=== PATIENT | female | born 1935 | race African-American/Black ===

== ENCOUNTER 2019-05-26 19:03 | Inpatient (IN) | payer SELFPAY ==
[~2019-05-26] VITALS: Ht 160 cm; Wt 89.0 kg
[2019-05-26 20:06] LABS: Basophils # (auto) 0 uL; Basophils % (auto) 0.8 % (0.0-2.0); Eosinophils # (auto) 0.2 uL; Hematocrit 37.7 % (36.0-46.0); Hemoglobin 12.4 g/dL (12.2-16.2); Lymphocytes # (auto) 2.7 uL; Lymphocytes % (auto) 46.6 % (10.0-50.0); Mean Corpuscular Hemoglobin 31.6 pg (28.0-32.0); Mean Corpuscular Hgb Conc. 32.9 g/dL (32.0-36.0); Mean Corpuscular Volume 96.1 fL (80.0-100.0); Monocytes # (auto) 0.6 uL; Monocytes % (auto) 10.3 % (0.0-12.0); Neutrophils # (auto) 2.2 uL; Neutrophils % (auto) 39.3 % (37.0-80.0); Nucleated Red Blood Cells % 0.1 %; Platelet Count (auto) 213 10^3/uL (140-450); Red Blood Cells 3.93 10^6/uL (4.0-5.20); Red Cell Distribution Width 12.7 % (11.8-14.3); White Blood Cell 5.7 10^3/uL (4.4-10.8)
[2019-05-26 20:11] LABS: Urine Bacteria NONE SEEN /hpf (None Seen); Urine Blood Negative /uL (Negative); Urine Specific Gravity 1.005 (1.001-1.035); Urine WBC <1 /hpf (0 - 5)
[2019-05-26 20:27] LABS: Albumin 3.5 g/dL (3.4-5.0); BUN/Creatinine Ratio 19.3; Calcium 8.2 mg/dL (8.5-10.1); Potassium 3.7 mmol/L (3.5-5.1)
[2019-05-26 20:31] LABS: Bilirubin, Total 0.4 mg/dL (0.2-1.0); Total Protein 7.6 g/dL (6.4-8.2)
[2019-05-26] MEDS ORDERED: FUROSEMIDE 20 MG/2 ML VIAL IV ONE (21:30)
[2019-05-26] MEDS ORDERED: ASPirin 81 mg TAB PO ONE (22:15)
[2019-05-26] MEDS ORDERED: MORPHINE SULF INJ 2 MG/ML SYRINGE 1ML IV PRN (22:45)
[2019-05-26] MEDS ORDERED: cloNIDine HCL 0.1 MG TAB PO PRN (22:45)
[2019-05-26] MEDS ORDERED: NITROGLYCERIN 0.4 MG SL TAB SL PRN (22:45)
[2019-05-26] MEDS ORDERED: ONDANSETRON HCL 4 MG/2 ML VIAL IV PRN (22:45)
[2019-05-26] MEDS ORDERED: ACETAMINOPHEN 325 MG TAB PO PRN (22:45)
[2019-05-26] MEDS ORDERED: TEMAZEPAM 15 MG CAP PO PRN (22:45)
[2019-05-26] MEDS ORDERED: ATORVASTATIN 20 MG TAB PO ONE (22:45)
[2019-05-26 23:50] LABS: Cholesterol 162 mg/dL (< 200)
[2019-05-26 23:52] LABS: HDL Cholesterol 35 mg/dL (40-59); LDL Cholesterol 108 mg/dL (< 100); Triglycerides 113 mg/dL (< 150)
--- NOTE | 2019-05-27 01:00 | NUR ---
Telemetry admit from ER CRYSTAL MUNGUIA admitted to Telemetry unit after SBAR received. Patient oriented to Minerva giraldo RN, unit, room, bed, and unit policies regarding patient care and visiting hours. Patient now on continuous telemetry monitoring, tele box # 12 and telemetry reading on arrival to unit is AFIB 59. Patient placed on bedside oxygen, weighed by bed scale and encouraged to call if they need something. All questions and concerns addressed, patient verbalized understanding. Note: Came per wheelchair awake alert oriented x 4, not in respiratory distress, placed in the bed comfortably,vital signs checked.
[2019-05-27 01:10] VITALS: BP 162/93
[2019-05-27] MEDS: HYDROcodone-ACET 5/325MG TAB PO PRN ×2 (01:41→09:55)
[2019-05-27] MEDS ORDERED: LOSA-69 PO (01:52)
[2019-05-27] MEDS ORDERED: FURO1TAB31 PO (01:52)
[2019-05-27] MEDS ORDERED: MELO1TAB73 PO (01:52)
[2019-05-27 05:44] VITALS: BP 148/69
--- NOTE | 2019-05-27 06:16 | NUR ---
Called/paged Leeanne Ontiveros called re:at 0300 patient heart rate of 40s,spike of 38,to 50s . Did EKG, patient is asymptomatic ,vital signsof 154/77,44,awaiting reply.
[2019-05-27] MEDS ORDERED: PNEUMOCOCCAL VACC POLYS 25 MCG/0.5 ML VIAL IM ONE (06:30)
--- NOTE | 2019-05-27 06:36 | NUR ---
Teresa Wood replied and relayed that at 0300, patient has spike of heart rate of 38.39. 40s, to 50s,asymptomatic, vital signs checked bp 154/77, hr.of 44, 95% o2 sat. and said patient has a cardiology consult ordered, no new order.
--- NOTE | 2019-05-27 06:40 | NUR ---
Relayed to Abhay Wood the EKG result of Atrial Fibrillation with slow ventricular response with premature ventricular or aberrantly conducted complexes.
--- NOTE | 2019-05-27 07:30 | NUR ---
Opening Shift Note Assumed care of patient, awake and alert. No S/S of distress/SOB or pain. Instructed on POC and to call for assist PRN, will continue to monitor for changes Q1hr and PRN.
--- NOTE | 2019-05-27 07:48 | NUR ---
Report given to Destiny Huang, patient is resting no distress.
[2019-05-27 07:56] LABS: Basophils # (auto) 0 uL; Basophils % (auto) 0.5 % (0.0-2.0); Eosinophils # (auto) 0.2 uL; Eosinophils % (auto) 3.6 % (0.0-7.0); Hematocrit 35.3 % (36.0-46.0); Lymphocytes % (auto) 43.3 % (10.0-50.0); Mean Corpuscular Hemoglobin 32.8 pg (28.0-32.0); Mean Corpuscular Hgb Conc. 34.1 g/dL (32.0-36.0); Mean Corpuscular Volume 96.1 fL (80.0-100.0); Monocytes # (auto) 0.5 uL; Monocytes % (auto) 10.9 % (0.0-12.0); Neutrophils # (auto) 1.9 uL; Neutrophils % (auto) 41.7 % (37.0-80.0); Nucleated Red Blood Cells % 0.2 %; Platelet Count (auto) 190 10^3/uL (140-450); Red Blood Cells 3.68 10^6/uL (4.0-5.20); Red Cell Distribution Width 12.8 % (11.8-14.3); White Blood Cell 4.5 10^3/uL (4.4-10.8)
[2019-05-27 08:16] LABS: BUN/Creatinine Ratio 18.9
[2019-05-27 09:00] VITALS: BP 149/66
[2019-05-27] MEDS: ENOXAPARIN SOD 40 MG/0.4 ML SYRINGE SC SCH (09:51)
[2019-05-27] MEDS: FAMOTIDINE 20 MG TAB PO SCH ×2 (09:52→21:07)
[2019-05-27] MEDS: ASPirin 81 mg TAB PO SCH (09:53)
[2019-05-27] MEDS: LOSARTAN POTASSIUM 25 MG TAB PO SCH (09:53)
[2019-05-27] MEDS ORDERED: FUROSEMIDE 40 MG TAB PO SCH (10:00)
--- NOTE | 2019-05-27 12:41 | NUR ---
md zuniga at bedside rounded on pt and daughter jacob, updated on plan of care awaiting john
[2019-05-27 13:00] VITALS: BP 142/77
--- NOTE | 2019-05-27 14:05 | NUR ---
called stress test to see if test will be done today, and if another iv needs to be inserted per stress lab the stress test part will be done tomorrow morning ad the relax portion will be done today
[2019-05-27 17:00] VITALS: BP 146/87
[2019-05-27] MEDS: FUROSEMIDE 40 MG/4 ML VIAL IV SCH (17:12)
--- NOTE | 2019-05-27 19:15 | NUR ---
ASSUMED CARE, PT. AWAKE, ASSISTED PT. TO BR THEN BACK TO BED, RELATIVE AT BEDSIDE, NO C/O PAIN, NO SOB.
[2019-05-27] MEDS: POTASSIUM CHL 20 Meq TABLET PO SCH (21:07)
[2019-05-27 21:55] VITALS: BP 154/67
[2019-05-27] MEDS: ATORVASTATIN 20 MG TAB PO SCH (22:34)
[2019-05-28 04:45] VITALS: BP 137/83
[2019-05-28] MEDS: FUROSEMIDE 40 MG/4 ML VIAL IV SCH ×2 (05:31→18:15)
[2019-05-28] MEDS ORDERED: PNEUMOCOCCAL VACC POLYS 25 MCG/0.5 ML VIAL IM ONE (07:45)
--- NOTE | 2019-05-28 07:45 | NUR ---
Opening Note Assumed care of patient, she is alert and awake, patient speaks Swahili. She is in no apparent s/s of distress at this time. Will ask charge nurse for drupal developer phone, and call daughter to assist with communication. Patient states "pain" and touches her upper arms. Bed is in low, locked position, call light within reach, demonstrated how to use it if she needs assistance. Will continue to monitor Q1h and PRN.
[2019-05-28] MEDS ORDERED: ADENOSINE 75 MG in GIVE UN-DILUTED 0 ML IV STA (08:21)
[2019-05-28 08:54] LABS: Potassium 3.7 mmol/L (3.5-5.1)
[2019-05-28 09:00] VITALS: BP 150/65
--- NOTE | 2019-05-28 10:00 | NUR ---
Daughter at bedside able to help with translation.
[2019-05-28] MEDS: FAMOTIDINE 20 MG TAB PO SCH ×2 (10:49→21:07)
[2019-05-28] MEDS: ASPirin 81 mg TAB PO SCH (10:49)
[2019-05-28] MEDS: LOSARTAN POTASSIUM 25 MG TAB PO SCH (10:50)
[2019-05-28] MEDS: LACTULOSE 20Gm/30ML SOLN PO SCH ×2 (10:51→21:06)
[2019-05-28] MEDS: POTASSIUM CHL 20 Meq TABLET PO SCH ×2 (10:51→21:07)
[2019-05-28] MEDS: ENOXAPARIN SOD 40 MG/0.4 ML SYRINGE SC SCH (10:51)
[2019-05-28 13:00] VITALS: BP 152/67
--- NOTE | 2019-05-28 14:45 | NUR ---
Called Dr. Arias Notified Dr. Arias of erythema and tenderness to the right upper arm. Orders received and read back, and verified. Will medicate per orders. Addendum: 05/28/19 at 2017 by HOWARD ONTIVEROS RN RN Time was at 1646 for this intervention
[2019-05-28] MEDS ORDERED: IOHEXOL 350 MG/ML 100ML IJ ONE (16:58)
[2019-05-28 17:00] VITALS: BP 133/63
--- NOTE | 2019-05-28 17:07 | NUR ---
Patient to CT scan.
--- NOTE | 2019-05-28 17:10 | NUR ---
assessment Patient is a 83 year old Swahili speaking female. Per patients daughter Shanice patient lived home with her prior to admission and functioned with her assistance. Patient has a fww for home use. Patient has no insurance. Patient has been assessed by Everett Leyva of [facility]. Patients [facility] application is secure. I have provided patient with resources for [facility], Dr. Reddy, and [facility] urgent care for follow up visits. I have provided patient with a prescription card from community assistance program. Per Shanice patient will return home with her on discharge. Shanice verbalized understanding and agreed to discharge plan home. Addendum: 05/28/19 at 1713 by Vale CONKLIN Amended: Links added.
[2019-05-28] MEDS: HYDROcodone-ACET 5/325MG TAB PO PRN (18:15)
[2019-05-28] MEDS: CLINDAMYCIN 600MG IV 50 ML IV SCH (19:05)
--- NOTE | 2019-05-28 19:15 | NUR ---
assumed care, pt. awake, no c/o pain, not in distress.
[2019-05-28] MEDS: ATORVASTATIN 20 MG TAB PO SCH (21:07)
[2019-05-28 22:16] VITALS: BP 137/68
[2019-05-29] MEDS: CLINDAMYCIN 600MG IV 50 ML IV SCH ×2 (02:13→09:29)
[2019-05-29 05:33] VITALS: BP 123/56
[2019-05-29] MEDS: FUROSEMIDE 40 MG/4 ML VIAL IV SCH (05:36)
--- NOTE | 2019-05-29 07:30 | NUR ---
OPENING SHIFT NOTE RECEIVED REPORT FROM [facility] NURSE, ASSUMED CARE OF PATIENT. PATIENT IS A&OX4 WITH NO C/O PAIN. PATIENTS BED IS IN LOW POSITION, BRAKES APPLIED, BED RAILS UPX2 AND CALL LIGHT WITHIN REACH. EDUCATED PATIENT ON POC AND CALL LIGHT USE PRN, PATIENT VERBALIZED UNDERSTANDING. NO CURRENT S/S OF DISTRESS NOTED, CONTINUING TO MONITOR PATIENT Q1 HR AND PRN
[2019-05-29 07:40] LABS: BUN/Creatinine Ratio 19.2; Potassium 3.7 mmol/L (3.5-5.1)
[2019-05-29 09:00] VITALS: BP 117/55
[2019-05-29] MEDS: LACTULOSE 20Gm/30ML SOLN PO SCH (09:28)
[2019-05-29] MEDS: FAMOTIDINE 20 MG TAB PO SCH (09:28)
[2019-05-29] MEDS: POTASSIUM CHL 20 Meq TABLET PO SCH (09:28)
[2019-05-29] MEDS: ASPirin 81 mg TAB PO SCH (09:28)
[2019-05-29] MEDS: ENOXAPARIN SOD 40 MG/0.4 ML SYRINGE SC SCH (09:29)
[2019-05-29] MEDS: LOSARTAN POTASSIUM 25 MG TAB PO SCH (09:30)
--- NOTE | 2019-05-29 10:35 | NUR ---
AT BEDSIDE DR FLORES AT PT BEDSIDE
[2019-05-29] MEDS ORDERED: APIXABAN 5 MG TAB PO ONE (11:15)
[2019-05-29] MEDS ORDERED: APIX5TAB OR (11:34)
[2019-05-29] MEDS ORDERED: FURO20TA3 PO (11:34)
[2019-05-29] MEDS ORDERED: CEPH-37 PO (11:34)
[2019-05-29] MEDS ORDERED: LOS25T PO (11:34)
[2019-05-29] MEDS ORDERED: POTA-220 PO (11:34)
--- NOTE | 2019-05-29 11:43 | NUR ---
INTERPRETATION USED TELE GROUT SEWER LINE REPAIRER # [id number] USED FOR [place], EDUCATED PATIENT ON COST OF F/U APPT AND ON ASSISTANCE AVAILABLE, PATIENT VERBALZIED UNDERSTANDING.
[2019-05-29 12:45] VITALS: BP 123/56
[2019-05-29 13:00] VITALS: BP 117/55
--- NOTE | 2019-05-29 13:04 | NUR ---
PER PHARMACY PATIENT ALREADY RECEIVED PNEUMONIA VAC
--- NOTE | 2019-05-29 14:00 | NUR ---
IV removal IV DC'd with clean sterile technique, catheter fully intact. Pressure dressing applied to site. Patient tolerated well.
--- NOTE | 2019-05-29 14:15 | NUR ---
TELE BOX REMOVED SENT TO IN ROOM
--- NOTE | 2019-05-29 14:35 | NUR ---
PHARMACY PATIENT ESCORTED VIA WHEELCHAIR TO [facility], PATIENT EDUCATED ON F/U CARE AND PATIENT CONDITION. HAS ALL BELONGINGS WITH HER
--- NOTE | 2019-05-29 14:40 | NUR ---
PATIENT DISCHARGE PATIENT LEFT VIA WHEELCHAIR TO PERSONAL VEHICLE WITH NO C/O DISTRESS OR PAIN.
--- NOTE | 2019-05-29 15:48 | NUR ---
Late note Spoke with pt Clayton Skaggs. The pt appeared to not understand clinical social work aide. community worker realized that the pt was from [facility] and did not speak Hungarian. The pt's daughter was not in the room at the time. community worker left and came back. At that time Everett was speakiing with the daughter and she informed him that at one time the pt had medi-nile and let it lapse. Everett was collecting paperwork from the daughter. When Mr Garcia came out of the room he stated the pt did qualify for medi-nile He stated that he collected most of the information and the Medi-nile was secure.
--- NOTE | 2019-05-29 17:39 | NUR ---
re-assessment Per Dorita Hutton patients [facility] is secure. Addendum: 05/29/19 at 1740 by Vale CONKLIN Amended: Links added.
== END 2019-05-29 14:40 | disposition home or self-care (01) | DRG 292 ==
LOC: ER 19:05 → TELE 19:06 → TELE-EAST 23:23
PROVIDERS: ADMIT Nurse Practitioner; ATTEND Internal Medicine
DX: I11.0 Hypertensive heart disease with heart failure (principal); L03.113 Cellulitis of right upper limb; E11.65 Type 2 diabetes mellitus with hyperglycemia; I50.43 Acute on chronic combined systolic (congestive) and diastolic (congestive) heart failure; E66.9 Obesity, unspecified; I48.91 Unspecified atrial fibrillation; E78.5 Hyperlipidemia, unspecified; K59.00 Constipation, unspecified; M19.90 Unspecified osteoarthritis, unspecified site; Z90.49 Acquired absence of other specified parts of digestive tract; Z68.34 Body mass index [BMI] 34.0-34.9, adult; Z23 Encounter for immunization
CPT/HCPCS: 36415; 71045; 71046; 71275; 78452; 80048; 80053; 80061; 81001; 83036; 83735; 83880; 84443; 84484; 85025; 85379; 93005; 93017; 93306; 93970; 93971; G0378; J0153; J3490

== ENCOUNTER 2019-07-20 08:12 | Inpatient (IN) | payer MEDICAID ==
[~2019-07-20] VITALS: Ht 157.5 cm; Wt 86.4 kg
[~2019-07-20 08:12] MED LIST: APIX5TAB OR; CEPH-37 PO; FURO20TA3 PO; LOS25T PO; POTA-220 PO
[2019-07-20 08:53] LABS: Hematocrit 38.1 % (36.0-46.0); Hemoglobin 12.6 g/dL (12.2-16.2); Mean Corpuscular Hemoglobin 31.1 pg (28.0-32.0); Mean Corpuscular Volume 94.5 fL (80.0-100.0); Platelet Count (auto) 174 10^3/uL (140-450); Red Blood Cells 4.04 10^6/uL (4.0-5.20); Red Cell Distribution Width 12.6 % (11.8-14.3); White Blood Cell 3.7 10^3/uL (4.4-10.8)
[2019-07-20 08:58] LABS: Band Neutrophils % (manual) 0; Basophils % (manual) 0 (0.0-2.0); Blast Cells 0; Metamyelocytes % 0; Myelocytes % 0; Promyelocytes % 0; Reactive Lymphocytes 0
[2019-07-20 08:59] LABS: Albumin 3.5 g/dL (3.4-5.0); BUN/Creatinine Ratio 15.6
[2019-07-20 09:04] LABS: Bilirubin, Total 0.7 mg/dL (0.2-1.0); Total Protein 7.4 g/dL (6.4-8.2)
[2019-07-20 09:21] LABS: Eosinophils % (manual) 1 (0-7); Lymphocytes % (manual) 40 (10.0-50.0); Monocytes % (manual) 16 (0-12)
[2019-07-20] MEDS ORDERED: ASPirin 81 mg TAB PO ONE (10:00)
[2019-07-20] MEDS ORDERED: ENOXAPARIN SOD 100 MG/1 ML SYRINGE SC ONE (10:00)
[2019-07-20] MEDS ORDERED: MORPHINE SULF INJ 2 MG/ML SYRINGE 1ML IV PRN ×2 (11:00)
[2019-07-20] MEDS ORDERED: hydrALAZINE HCL 20 MG/ML VL IV PRN (11:00)
[2019-07-20] MEDS ORDERED: NITROGLYCERIN 0.4 MG SL TAB SL PRN (11:00)
[2019-07-20] MEDS ORDERED: ONDANSETRON HCL 4 MG/2 ML VIAL IV PRN (11:00)
[2019-07-20] MEDS ORDERED: FUROSEMIDE 20 MG/2 ML VIAL IV ONE (11:00)
[2019-07-20 11:16] LABS: Urine WBC None Seen /hpf (0 - 5)
[2019-07-20 11:26] LABS: Urine Bacteria NONE SEEN /hpf (None Seen); Urine Blood Negative /uL (Negative); Urine Specific Gravity 1.009 (1.001-1.035)
[2019-07-20 11:43] LABS: INR 1.01 (0.9-1.15); Partial Thromboplastin Time 29.2 sec (23.64-32.05)
--- NOTE | 2019-07-20 12:31 | NUR ---
PATIENT ARRIVED ON UNIT VIA WHEELCHAIR. ORIENTED TO TELE UNIT, ROOM 0291 BED A. EDUCATED ON VISITING HOURS, GIVEN TO FAMILY. PATIENT NON-OCCITAN SPEAKING DAUGHTER, CONNOR, TO TRANSLATE ALL INFORMATION DURING ADMISSION PROCESS. TELE BOX # 57 CONNECTED, RUNNING A-FIB. RESPIRATIONS EVEN AND UNLABORED. CLEAR BREATH SOUNDS. PATIENT ABLE TO AMBULATE TO BATHROOM. EDUCATED ON ROOM PHONE NUMBER AND EXTENSION TO REACH PATIENT. PATIENT VS TAKEN. BED IN LOWEST LOCKED POSITION. WILL CONTINUE TO MONITOR.
[2019-07-20 13:00] VITALS: BP 167/100
[2019-07-20 13:28] VITALS: BP 151/92
[2019-07-20 17:00] VITALS: BP 114/65
[2019-07-20] MEDS: HYDROcodone-ACET 5/325MG TAB PO PRN (18:04)
--- NOTE | 2019-07-20 18:22 | NUR ---
PATIENT REPORTING ACHES AND PAIN ALONG POSTERIOR BACK AND LEFT ARM. WILL MEDICATE ORDERED. PATIENT ALSO STATES SHE HAS A SORE THROAT WITH YELLOW PHLEGM. THIS RN DID NOT SEEE SAMPLE, ONLY REPORTED BY DAUGHTER CONNOR. PATIENT PREFERS WEARING NASAL CANNULA AT THIS TIME, O2 SAT 96% ON ROOM AIR, 99% ON 2L NC. WILL ENDORSE CARE TO NOC RN.
--- NOTE | 2019-07-20 19:27 | NUR ---
CARE ENDORSED TO NASEEM HERNANDEZ
[2019-07-20] MEDS: ATORVASTATIN 20 MG TAB PO SCH (21:06)
[2019-07-20 22:00] VITALS: BP 132/68
[2019-07-21 05:00] VITALS: BP 128/69
[2019-07-21 07:05] LABS: Basophils # (auto) 0 uL; Basophils % (auto) 0.2 % (0.0-2.0); Eosinophils # (auto) 0.1 uL; Eosinophils % (auto) 0.9 % (0.0-7.0); Hematocrit 38.8 % (36.0-46.0); Hemoglobin 12.9 g/dL (12.2-16.2); Lymphocytes # (auto) 1.2 uL; Lymphocytes % (auto) 18.4 % (10.0-50.0); Mean Corpuscular Hemoglobin 31.1 pg (28.0-32.0); Mean Corpuscular Hgb Conc. 33.3 g/dL (32.0-36.0); Mean Corpuscular Volume 93.5 fL (80.0-100.0); Monocytes # (auto) 0.7 uL; Monocytes % (auto) 9.7 % (0.0-12.0); Neutrophils # (auto) 4.8 uL; Neutrophils % (auto) 70.8 % (37.0-80.0); Nucleated Red Blood Cells % 0.2 %; Platelet Count (auto) 169 10^3/uL (140-450); Red Blood Cells 4.15 10^6/uL (4.0-5.20); Red Cell Distribution Width 12.9 % (11.8-14.3); White Blood Cell 6.8 10^3/uL (4.4-10.8)
[2019-07-21 07:15] LABS: INR 1.01 (0.9-1.15); Partial Thromboplastin Time 28.2 sec (23.64-32.05)
[2019-07-21 07:16] LABS: Potassium 3.4 mmol/L (3.5-5.1)
[2019-07-21 07:19] LABS: BUN/Creatinine Ratio 19.2
--- NOTE | 2019-07-21 07:45 | NUR ---
Opening Note Received report from manufacturing supervisor 2nd shift RN. Patient is awake, alert and oriented. No signs or symptoms of distress noted at this time. Patient is on 2L NC, respirations even and unlabored. Reviewed plan of care. Bed in low and locked position, call light within reach. Will continue to monitor Q1 hour and PRN.
[2019-07-21] MEDS ORDERED: ADENOSINE 72 MG in GIVE UN-DILUTED 0 ML IV STA (08:19)
[2019-07-21 08:51] VITALS: BP 129/70
[2019-07-21] MEDS ORDERED: POTASSIUM CHL 20 Meq TABLET PO ONE (09:30)
--- NOTE | 2019-07-21 10:05 | NUR ---
senior quality control technician at bedside
[2019-07-21] MEDS: FAMOTIDINE 20 MG TAB PO SCH (10:37)
[2019-07-21] MEDS: ASPirin-EC 81 mg tab PO SCH (10:37)
[2019-07-21] MEDS: LISINOPRIL 10 MG TAB PO SCH (10:37)
--- NOTE | 2019-07-21 10:55 | NUR ---
GRAY Treadwell at bedside Patient scheduled to have left heart cath tomorrow. Procedure for left heart cath explained to daughter Shanice and patient.
--- NOTE | 2019-07-21 11:15 | NUR ---
Consents signed and placed in chart Daughter Shanice at bedside, consents for left heart cath signed and placed in chart. Will continue to monitor
[2019-07-21 13:00] VITALS: BP 132/73
--- NOTE | 2019-07-21 13:45 | NUR ---
Dr. Adan at bedside
[2019-07-21] MEDS: HYDROcodone-ACET 5/325MG TAB PO PRN ×2 (17:24→21:44)
--- NOTE | 2019-07-21 17:24 | NUR ---
Pain Per patient daughter, patient has a sore throat and headache from coughing, and would like pain medications. Will medicate with PRN medication as ordered. Will continue to monitor Q1 hour and PRN.
--- NOTE | 2019-07-21 19:15 | NUR ---
Closing Note Report given to shift production supervisor RN. No signs or symptoms of distress noted at this time.
[2019-07-21 20:00] VITALS: BP 129/70
[2019-07-21] MEDS: ATORVASTATIN 20 MG TAB PO SCH (21:44)
[2019-07-21 22:00] VITALS: BP 115/61
[2019-07-22] VITALS (7 sets, daily range): BP systolic 115–142; BP diastolic 52–82
--- NOTE | 2019-07-22 05:22 | NUR ---
LEFT A MESSAGE ON CONNOR-DAUGHTER ABOUT THE PT'S SCHEDULED PROCEDURE.
--- NOTE | 2019-07-22 07:20 | NUR ---
Opening Shift Note Assumed care of patient, awake and alert. No S/S of distress/SOB or pain. Instructed on POC and to call for assist PRN, will continue to monitor for changes Q1hr and PRN. Bed locked in lowest position with two side rails up and call light in reach.
[2019-07-22 07:38] LABS: Basophils # (auto) 0 uL; Basophils % (auto) 0.3 % (0.0-2.0); Eosinophils # (auto) 0 uL; Eosinophils % (auto) 0.6 % (0.0-7.0); Hemoglobin 12.8 g/dL (12.2-16.2); Lymphocytes # (auto) 0.9 uL; Lymphocytes % (auto) 13.2 % (10.0-50.0); Mean Corpuscular Hemoglobin 31.7 pg (28.0-32.0); Mean Corpuscular Hgb Conc. 33.7 g/dL (32.0-36.0); Monocytes # (auto) 0.7 uL; Monocytes % (auto) 10.3 % (0.0-12.0); Neutrophils # (auto) 5.2 uL; Neutrophils % (auto) 75.6 % (37.0-80.0); Platelet Count (auto) 151 10^3/uL (140-450); Red Blood Cells 4.05 10^6/uL (4.0-5.20); Red Cell Distribution Width 12.6 % (11.8-14.3); White Blood Cell 6.8 10^3/uL (4.4-10.8)
[2019-07-22 07:53] LABS: INR 1.01 (0.9-1.15); Partial Thromboplastin Time 25.9 sec (23.64-32.05)
[2019-07-22 07:55] LABS: BUN/Creatinine Ratio 21.6; Potassium 3.5 mmol/L (3.5-5.1)
[2019-07-22] MEDS: LISINOPRIL 10 MG TAB PO SCH (09:38)
[2019-07-22] MEDS: FAMOTIDINE 20 MG TAB PO SCH (09:50)
[2019-07-22] MEDS: ASPirin-EC 81 mg tab PO SCH ×2 (09:50→10:22)
--- NOTE | 2019-07-22 10:03 | NUR ---
PATIENT AND DAUGHTER STATE THAT PATIENT HAS BEEN EXPERIENCING SORE THROAT AND BODY ACHES WITH GREENISH PHLEGM. PER THE PATIENT IT HAS NOT BEEN ADDRESSED. TEMP THIS MORNING WAS 100.2 HR 80, RR 20 SpO2 98 RA, AND BP 142/82 PATIENTS LYMPH NODES FEEL SWOLLEN BILATERALLY. I ASSESSED THROAT WITH PEN LIGHT. UNABLE TO VISUALIZE WHOLE THROAT PATIENTS TONGUE IS IN THE WAY. I PAGED HOSPITALIST DEISI TO NOTIFY, I ALSO CALLED PLASTIC PRINTER JOVANNI HERNANDEZ TO NOTIFY OF SYMPTOMS DUE TO PATIENT BEING SCHEDULED FOR [facility]. I AM CURRENTLY AWAITING HOSPITALIST CALL BACK.
--- NOTE | 2019-07-22 10:15 | NUR ---
DR FATIMA ROUNDING ORDERS RECEIVED AND IMPLEMENTED.
[2019-07-22] MEDS: ACETAMINOPHEN 500 MG TAB PO PRN (10:23)
[2019-07-22] MEDS ORDERED: AZITHROMYCIN 250 MG TAB PO ONE (10:30)
--- NOTE | 2019-07-22 10:30 | NUR ---
RAPID INFLUENZA SENT OUT.
[2019-07-22] MEDS: cefTRIAXone 1GM/50ML D5W 50 ML IV SCH ×2 (12:58→21:24)
[2019-07-22] MEDS ORDERED: FUROSEMIDE 20 MG/2 ML VIAL IV ONE (15:00)
--- NOTE | 2019-07-22 15:05 | NUR ---
NUTRITION ASSESSMENT NOTES Please refer to link notes of nutrition screen form filed under the intervention section of the plan of care for further details. Est. Needs: 1350 kcal to 1700 kcal (15-20 kcal/kgBW), 50 gms to 60 gms pro (1.0-1.2 gms/kgIBW: 50 kg). Will continue to monitor pertinent labs and reassess nutrient need prn Thank you. Addendum: 07/22/19 at [address] Amended: Links added.
--- NOTE | 2019-07-22 16:55 | NUR ---
PATIENT WAS TAKEN DOWN TO OVEN HEATER FOR LHC, HOWEVER CASE WAS RESCHEDULED UNTIL TOMORROW EARLY AFTERNOON. PATIENT AND FAMILY ARE AWARE. ALL CONSENTS ARE IN THE CHART AND SIGNED. PATIENT HAD DIET REPLACED FOR THIS EVENING AND FOR BREAK FAST. PER OVEN HEATER NURSE KRISTEN PATIENT CAN HAVE BREAKFAST BUT NEEDS TO BE NPO AFTER MORNING MEAL. WILL ENDORSE THIS TO NOC NURSE.
--- NOTE | 2019-07-22 19:35 | NUR ---
Opening Shift Note Assumed care of patient, awake and alert. No S/S of distress/SOB or pain. Can understand and respond a little bit of Irish. Instructed on POC and to be NPO after MN, for [facility] tomorrow. Instructed to call for assist PRN, bed in lowest position, call light within reach, will continue to monitor for changes Q1hr and PRN.
[2019-07-22] MEDS: ATORVASTATIN 20 MG TAB PO SCH (21:25)
[2019-07-22] MEDS ORDERED: APIXABAN 5 MG TAB PO SCH (22:00)
[2019-07-23 05:07] LABS: Calcium 7.9 mg/dL (8.5-10.1)
[2019-07-23 05:34] VITALS: BP 123/70
--- NOTE | 2019-07-23 06:23 | NUR ---
Noted no consent for LHC at chart. Attempted to call patient's daughter to confirm it and left a message
--- NOTE | 2019-07-23 07:30 | NUR ---
Opening Note Received report from green ware caster RN. Patient is awake, alert and oriented. No signs or symptoms of distress noted at this. Patient is on 2L NC, respirations even and unlabored. Reviewed plan of care with patient. Patient is NPO for scheduled heart cath today. Bed in low and locked position, call light within reach. Will continue to monitor Q1 hour and PRN.
[2019-07-23] MEDS: LISINOPRIL 10 MG TAB PO SCH (08:32)
[2019-07-23] MEDS: cefTRIAXone 1GM/50ML D5W 50 ML IV SCH ×2 (08:33→21:18)
[2019-07-23] MEDS: ACETAMINOPHEN 500 MG TAB PO PRN (08:33)
[2019-07-23 09:00] VITALS: BP 125/69
[2019-07-23] MEDS: FAMOTIDINE 20 MG TAB PO SCH (10:00)
[2019-07-23] MEDS: FUROSEMIDE 20 MG/2 ML VIAL IV SCH (10:00)
--- NOTE | 2019-07-23 11:23 | NUR ---
Patient taken down to cathode ray tube salvage processor
[2019-07-23] MEDS ORDERED: LIDOCAINE 2%HCL (LOCAL ANESTH.) INJ 20ML MDV ONE (12:36)
[2019-07-23] MEDS ORDERED: IOHEXOL 350 MG/ML 100ML IJ ONE (12:36)
[2019-07-23] MEDS ORDERED: ANGIOMAX 250 MG VIAL IV ONE (12:44)
[2019-07-23] MEDS ORDERED: HEPARIN SODIUM (PORCINE) 5000 UNITS/ML 1ML VIAL ONE (12:44)
[2019-07-23] MEDS ORDERED: VERAPAMIL 2.5MG/ML INJ 2ML VIAL IV ONE (12:45)
[2019-07-23] MEDS ORDERED: fentaNYL CITRATE 100 MCG/2 ML VL ONE (12:45)
[2019-07-23] MEDS ORDERED: SODIUM CHL 0.9% 0 ML ONE (12:45)
[2019-07-23] MEDS ORDERED: MIDAZOLAM HCL 1MG/1ML-2 ML VIAL ONE (12:45)
--- NOTE | 2019-07-23 14:20 | NUR ---
Received report from medical lab assistant Patient to be brought back up.
[2019-07-23 14:35] VITALS: BP 125/69
--- NOTE | 2019-07-23 14:40 | NUR ---
Patient back from Visual Display Manager Patient is s/p left heart cath. Patient is resting with eyes closed, easy to wake by calling name. Patient has dressing to right groin, clean dry and intact. Patient has vasc band to right wrist, can begin to deflate at 1450. Per report patient is to lay flat until 1550. Vitals signs 116/54, heart rate 49, oxygen saturation 97% on 3L NC, respirations even and unlabored, temperature 97.9. Family at bedside. Bed in low and locked position, call light within reach. Bed alarm and for safety. Will continue to monitor Q1 hour and PRN.
--- NOTE | 2019-07-23 15:37 | NUR ---
Vasc band removed No bleeding noted to right wrist. Gauze and Tegaderm applied to area. Will continue to monitor Q1 hour and PRN.
[2019-07-23] MEDS: AZITHROMYCIN 250 MG TAB PO SCH (16:40)
[2019-07-23 17:00] VITALS: BP 115/62
--- NOTE | 2019-07-23 19:16 | NUR ---
Closing Note Report given to fish skinning machine feeder RN. No signs or symptoms of distress noted at this time.
--- NOTE | 2019-07-23 19:35 | NUR ---
Opening Shift Note Assumed care of patient, awake and alert. No S/S of distress/SOB or pain. Dressing to right wrist and right groin intact, no bleeding noted. Pulses palpable. Instructed on POC and to call for assist PRN, patient verbalized understanding, call light within reach, will continue to monitor for changes Q1hr and PRN.
[2019-07-23] MEDS: ATORVASTATIN 20 MG TAB PO SCH (21:18)
[2019-07-23 23:33] VITALS: BP 107/53
[2019-07-24 05:09] VITALS: BP_SYST 107; BP_SYST 149; BP_DIAS 54; BP_DIAS 94
[2019-07-24] MEDS: HYDROcodone-ACET 5/325MG TAB PO PRN ×2 (06:54→15:18)
--- NOTE | 2019-07-24 07:25 | NUR ---
Opening Note Received report from production supervisor off shift RN. Patient is awake, alert and oriented. No signs or symptoms of distress noted at this. Patient is on 2L NC, respirations even and unlabored. Reviewed plan of care with patient. Bed in low and locked position, call light within reach. Will continue to monitor Q1 hour and PRN.
[2019-07-24] MEDS: cefTRIAXone 1GM/50ML D5W 50 ML IV SCH ×2 (08:06→21:32)
[2019-07-24 09:00] VITALS: BP 113/81
[2019-07-24] MEDS: ASPirin-EC 81 mg tab PO SCH (09:28)
[2019-07-24] MEDS: AZITHROMYCIN 250 MG TAB PO SCH (09:29)
[2019-07-24] MEDS: FAMOTIDINE 20 MG TAB PO SCH (09:29)
[2019-07-24] MEDS: LISINOPRIL 10 MG TAB PO SCH (09:29)
[2019-07-24] MEDS: FUROSEMIDE 20 MG/2 ML VIAL IV SCH (09:30)
[2019-07-24 13:00] VITALS: BP 117/65
--- NOTE | 2019-07-24 15:03 | NUR ---
assessment Patient is a 84 year old Swahili speaking female. I have called and left a message for patients daughter Shanice to return my call for assessment questions. Waiting compensation supervisor back now. Addendum: 07/24/19 at 1504 by Vale CONKLIN Amended: Links added.
[2019-07-24 17:00] VITALS: BP 126/55
--- NOTE | 2019-07-24 19:17 | NUR ---
Closing Note Report given to inventory worker RN. No signs or symptoms of distress noted at this time.
--- NOTE | 2019-07-24 19:35 | NUR ---
Opening Shift Note Assumed care of patient, awake and alert. No S/S of distress/SOB or pain. Dressing to right wrist and right groin noted to be clean, dry, and intact with palpable pulses noted. Bed in lowest locked position, side rails up x2, call light within reach. Instructed on POC and to call for assist PRN, will continue to monitor for changes Q1hr and PRN.
[2019-07-24] MEDS: ATORVASTATIN 20 MG TAB PO SCH (21:32)
[2019-07-24 21:35] VITALS: BP 115/56
[2019-07-25 05:50] VITALS: BP 129/73
--- NOTE | 2019-07-25 07:01 | NUR ---
Closing Note Patient lying in bed, eyes closed, respirations even and unlabored, appears asleep. Patient awakens to name and touch. No s/s of distress. Bed in lowest locked position, side rails up x2, call light within reach. Care endorsed to dayshift RN.
[2019-07-25 08:00] VITALS: BP 136/74
[2019-07-25] MEDS: cefTRIAXone 1GM/50ML D5W 50 ML IV SCH (09:13)
[2019-07-25] MEDS: FAMOTIDINE 20 MG TAB PO SCH (09:14)
[2019-07-25] MEDS: LISINOPRIL 10 MG TAB PO SCH (09:14)
[2019-07-25] MEDS: FUROSEMIDE 20 MG/2 ML VIAL IV SCH (09:14)
[2019-07-25] MEDS: ASPirin-EC 81 mg tab PO SCH (09:14)
[2019-07-25] MEDS: AZITHROMYCIN 250 MG TAB PO SCH (09:15)
[2019-07-25 09:25] VITALS: BP 136/71
[2019-07-25 14:26] VITALS: BP 126/70
--- NOTE | 2019-07-25 14:37 | NUR ---
Nutrition Follow-up Notes Wt.: 86.40 kg as of yesterday Pt's asleep, no immediate family member at bedside during rounds this morning. Pt's no signs of distress noted earlier, currently on Cardiac: 2 gms Na, Low Chol, Low Fat diet with adequate PO intake aeb 85% ave. consumed meals (x6) in last 2.5 days. Est. Needs: 1350 kcal to 1700 kcal (15-20 kcal/kgBW), 50 gms to 60 gms pro (1.0-1.2 gms/kgIBW: 50 kg). Will continue to monitor pertinent labs and reassess nutrient need prn Labs: No new labs since 07/23/19 Pertinent labs wnl except for Gluc 133 H, Ca 7.9 L; HbA1c 7.2 H Skin: Brandan scale 20, low risk, skin intact per research professor of biostatistics. GI: Pt's no bowel activity since 07/20/19 per research professor of biostatistics. PES: Altered nutrition related lab values r/t current/chronic medical condition aeb hypeglycemia, elev. BUN, Trop I, CRP, hypocalcemia Obesity r/t food intake more than body requirement aeb 177% IBW, BMI 35.6 kg/m2 and increased body adiposity Will continue to monitor PO intake, skin status, pertinent labs and weight trend. F/u in 3 to 5 days. Rec.: 1.) Consider Consistent Low Carb: 45 gms/meal, Cardiac: 2 gms Na, Low Chol, Low Fat diet. 2.) Continue close supervision during meals. 3.) Refer pt to RD for further nutrition education and weight monitoring upon discharge. 3.) Continue current plan of care.
[2019-07-25 16:27] VITALS: BP 117/58
[2019-07-25 18:03] VITALS: BP 117/58
--- NOTE | 2019-07-25 19:07 | NUR ---
DISCHARGE NOTE PATIENT ALERT AND ORIENTED X4 DAUGHTER AT BEDSIDE ALL DISHCARGE INSTRUCTIONS GIVEN ALL QUESTIONS AND CONCERNS ADDRESSED. DRESSING TO RIGHT WRIST AND GROIN REMOVED NO DRAINAGE NOTED. PULSES PALPABLE BILATERALLY THROUGHOUT. IV REMOVED USING ASEPTIC TECHNIQUE CATHETER INTACT PATIENT TOLERATED WELL. TELE BOX REMOVED CLEANED AND SENT TO ICU. PATIENT ASSISTED TO PERSONAL VEHICLE USING WHEELCHAIR. PATIENT DENIES ALL PAIN SOB OR DISTRESS
== END 2019-07-25 19:00 | disposition home or self-care (01) | DRG 190 ==
LOC: ER 08:12 → TELE 08:13 → TELE-WESTW 12:31
PROVIDERS: ADMIT Nurse Practitioner Acute Care; ATTEND Internal Medicine Nephrology
PROC: 4A023N7 Measurement of Cardiac Sampling and Pressure, Left Heart, Percutaneous Approach (ICD-10-PCS; principal; 2019-07-23)
PROC: B2111ZZ Fluoroscopy of Multiple Coronary Arteries using Low Osmolar Contrast (ICD-10-PCS; 2019-07-23)
PROC: B2151ZZ Fluoroscopy of Left Heart using Low Osmolar Contrast (ICD-10-PCS; 2019-07-23)
DX: I21.4 Non-ST elevation (NSTEMI) myocardial infarction (principal); I50.23 Acute on chronic systolic (congestive) heart failure; I48.91 Unspecified atrial fibrillation; D68.59 Other primary thrombophilia; I25.10 Atherosclerotic heart disease of native coronary artery without angina pectoris; I11.0 Hypertensive heart disease with heart failure; R00.1 Bradycardia, unspecified; E78.5 Hyperlipidemia, unspecified; J98.11 Atelectasis; E78.00 Pure hypercholesterolemia, unspecified; R73.9 Hyperglycemia, unspecified; M19.90 Unspecified osteoarthritis, unspecified site; Z90.49 Acquired absence of other specified parts of digestive tract; Z79.899 Other long term (current) drug therapy; Z79.01 Long term (current) use of anticoagulants; Z82.61 Family history of arthritis
CPT/HCPCS: 36415; 71045; 71046; 80048; 80053; 81001; 83036; 83880; 84484; 85007; 85025; 85027; 85610; 85730; 86141; 86850; 86900; 86901; 87804; 93005; 93306; 93458; 96372; 96374; 99152; G0378; J0153; J0696; J2250; J2405

== ENCOUNTER 2020-03-19 18:50 | Inpatient (IN) | payer MEDICAID ==
[~2020-03-19] VITALS: Ht 154.9 cm; Wt 95.6 kg
[~2020-03-19 18:50] MED LIST changes: +ATOR10TA52 PO; -CEPH-37 PO; +LORA-622 PO; +TRAM50TA2 PO
[2020-03-19 20:07] LABS: Basophils # (auto) 0 10 ^3/uL (0-0.2); Basophils % (auto) 0.3 % (0.0-2.0); Eosinophils # (auto) 0.1 10 ^3/uL (0-0.8); Eosinophils % (auto) 2.4 % (0.0-7.0); Hematocrit 42.5 % (36.0-46.0); Hemoglobin 13.8 g/dL (12.2-16.2); Lymphocytes # (auto) 2.4 10 ^3/uL (0.4-5.4); Lymphocytes % (auto) 41.6 % (10.0-50.0); Mean Corpuscular Hgb Conc. 32.5 g/dL (32.0-36.0); Mean Corpuscular Volume 92.3 fL (80.0-100.0); Monocytes # (auto) 0.6 10 ^3/uL (0-1.3); Monocytes % (auto) 10.2 % (0.0-12.0); Neutrophils # (auto) 2.7 10 ^3/uL (1.6-8.6); Neutrophils % (auto) 45.5 % (37.0-80.0); Nucleated Red Blood Cells % 0.1 %; Platelet Count (auto) 220 10^3/uL (140-450); Red Cell Distribution Width 13.5 % (11.8-14.3); White Blood Cell 5.9 10^3/uL (4.4-10.8)
[2020-03-19 20:22] LABS: Albumin 3.5 g/dL (3.4-5.0); Calcium 8.3 mg/dL (8.5-10.1); Potassium 4.1 mmol/L (3.5-5.1)
[2020-03-19 20:24] LABS: BUN/Creatinine Ratio 24.1
[2020-03-19 20:28] LABS: Bilirubin, Total 0.5 mg/dL (0.2-1.0)
[2020-03-19] MEDS ORDERED: MORPHINE SULF INJ 2 MG/ML SYRINGE 1ML IV ONE (23:15)
[2020-03-19] MEDS ORDERED: ONDANSETRON HCL 4 MG/2 ML VIAL IV ONE (23:15)
[2020-03-19] MEDS ORDERED: ASPirin 81 mg TAB PO ONE (23:15)
[2020-03-20] MEDS ORDERED: CALCIUM GLUC 4.65meq/50ml D5AE 50 ML IV ONE ×2 (00:15→12:45)
[2020-03-20] MEDS ORDERED: ATROPINE SULF 0.5 MG/5ML SYR ONE (00:37)
[2020-03-20] MEDS ORDERED: ATROPINE SULF 1 MG/10ml SYR IV ONE ×2 (00:45→04:15)
[2020-03-20] MEDS ORDERED: DOPamine 1600MCG/ML D5W 250 ML IV ONE (02:15)
[2020-03-20] MEDS ORDERED: MORPHINE SULFATE 4 MG/ML SYR/VIAL IV ONE ×2 (02:32→02:33)
[2020-03-20] MEDS ORDERED: MORPHINE SULFATE 4 MG/ML SYR/VIAL ONE (02:32)
[2020-03-20 03:43] LABS: Urine Bacteria FEW /hpf (None Seen); Urine Blood Negative /uL (Negative); Urine WBC 1 /hpf (0 - 5)
[2020-03-20] MEDS ORDERED: ATROPINE SULFATE 1 MG/1 ML VIAL ONE (04:13)
[2020-03-20] MEDS ORDERED: LORazepam 0.5 MG TAB PO PRN (06:15)
[2020-03-20] MEDS ORDERED: MORPHINE SULF INJ 2 MG/ML SYRINGE 1ML IV PRN (06:15)
[2020-03-20] MEDS ORDERED: ONDANSETRON HCL 4 MG/2 ML VIAL IV PRN (06:15)
[2020-03-20] MEDS ORDERED: METOPROLOL TARTRATE 1MG/1ML-5ML VIAL IV PRN (06:15)
[2020-03-20] MEDS ORDERED: DOCUSATE SOD 100 MG CAP PO PRN (06:15)
[2020-03-20] MEDS ORDERED: CARVEDILOL 3.125 MG TAB PO SCH (10:00)
[2020-03-20] MEDS ORDERED: ENOXAPARIN SOD 100 MG/1 ML SYRINGE SC SCH (10:00)
[2020-03-20] MEDS ORDERED: LISINOPRIL 10 MG TAB PO SCH (10:00)
[2020-03-20] MEDS: LOSARTAN POTASSIUM 25 MG TAB PO SCH (10:07)
[2020-03-20] MEDS: POTASSIUM CHL 20 Meq TABLET PO SCH (10:08)
[2020-03-20] MEDS: APIXABAN 5 MG TAB PO SCH ×2 (10:08→22:09)
[2020-03-20] MEDS: FUROSEMIDE 20 MG TAB PO SCH (10:08)
--- NOTE | 2020-03-20 15:44 | NUR ---
Telemetry admission/Patient's daughter called CRYSTAL MUNGUIA admitted to Telemetry unit after SBAR received. Patient oriented to Kelsey Natarajan primary RN, unit, room, bed, and unit policies regarding patient care through translation from patient's daughter, Shanice, via telephone. Patient now on continuous telemetry monitoring, tele box #27 and telemetry reading on arrival to unit is SB 56 bpm. Patient placed on bedside oxygen, weighed by bed scale. Shanice translated POC, fall precautions and for patient to call for assistance to the patient. Patient verbalized understanding. Fall precautions in place with bed in lowest locked position with call light within reach.
--- NOTE | 2020-03-20 15:47 | NUR ---
Patient ambulated to restroom with standby assistance Staff member provided standby assistance. Patient returned to bed with no complications. Call light within reach.
[2020-03-20 17:08] VITALS: BP 123/51
--- NOTE | 2020-03-20 17:13 | NUR ---
Admission assessment obtained from patient's daughter, Shanice. Updated Shanice on POC. Shanice verbalized understanding.
[2020-03-20 17:21] VITALS: BP 123/51
--- NOTE | 2020-03-20 17:57 | NUR ---
RE: LOW HEART RATE DR. RASCON NOTIFIED OF CONSISTENT LOW HEART RATE IN THE AFIB 30S. VS OBTAINED. PT RESTING IN BED. RESPIRATIONS EVEN AND NONLABORED. PT IS ASYMPTOMATIC. HEART RATE INCREASED TO 40S WHEN AWOKEN. VERBALIZED UNDERSTANDING. CONTINUE TO MONITOR PER MD. Signed: 03/20/20 at 180 by Carol DELGADO <Co-Signature Required> Co-Signed: 03/20/20 at 1802 by Kelsey Natarajan RN
[2020-03-20 18:05] VITALS: BP 101/64
--- NOTE | 2020-03-20 18:35 | NUR ---
RE: Methocarbamol - spoke to daughter Patient prescribed Methocarbamol 750mg PO QID on 03/17/20 by PCP. Patient's daughter, Shanice, started "I had concerns with giving her that much so I was only giving it to her in the morning and at night but I still didn't like the way it made her feel. She would say that she was really tired and I noticed that she was pretty sleepy. The doctor also gave her Ambien to help her sleep but I felt uncomfortable giving her that with the Methocarbamol so I wasn't giving it to her." Shanice reports that patient is suppose to be on supplemental home oxygen but "her doctor didn't prescribe it so we are not sure what is going on with that." Shanice is requesting to be updated on patient's need for medication for pre-diabetes. This RN placed note on patient's hard chart for MD to contact patient's daughter to discuss POC and patient's status.
[2020-03-20] MEDS ORDERED: POTA8TAB2 PO (18:36)
[2020-03-20] MEDS ORDERED: ZOLP5TAB5 PO (18:36)
[2020-03-20] MEDS ORDERED: METH750T3 PO (18:36)
[2020-03-20] MEDS ORDERED: TRAM50TA2 PO (18:36)
--- NOTE | 2020-03-20 18:36 | NUR ---
CLOSING NOTE PT RESTING IN BED WITH EYES CLOSED. NO S/S OF DISTRESS. VS STABLE OTHER THAN LOW HEART HEART BUT ASYMPTOMATIC. RESPIRATIONS NORMAL AND NONLABORED. BED IN LOWEST POSITION WITH CALL LIGHT IN REACH. Signed: 03/20/20 at 1838 by Carol DELGADO <Co-Signature Required> Co-Signed: 03/20/20 at 1838 by Kelsey Natarajan RN
--- NOTE | 2020-03-20 18:46 | NUR ---
HR A-fib 60 bpm. Patient sitting in semi-fowlers eating dinner meal.
--- NOTE | 2020-03-20 18:50 | NUR ---
Patient ambulated to restroom - HR a-fib 75 bpm Respirations even and unlabored, no distress noted. Patient returned to bed with no complications. Call light within reach.
--- NOTE | 2020-03-20 19:13 | NUR ---
Care endorsed to MARY Valenzuela. Patient's HR is a-fib 55 bpm.
--- NOTE | 2020-03-20 19:45 | NUR ---
Opening Shift Note Assumed care of patient, awake and alert. No S/S of distress/SOB noted. Instructed on POC and to call for assist PRN. Bed is in lowest locked position with bed rails up x2 and call light is within reach. Bed alarm is armed. Addendum: 03/20/20 at 2104 by Bianca Perrin RN RN Education translated through Jeffery rivero via phone.
[2020-03-20] MEDS: traMADol HCL 50 MG TAB PO PRN (20:23)
[2020-03-20] MEDS ORDERED: ATORVASTATIN 20 MG TAB PO SCH (22:00)
[2020-03-20] MEDS: ATORVASTATIN 20 MG TAB PO SCH (22:10)
[2020-03-21] VITALS: BP 157/79
[2020-03-21] MEDS: traMADol HCL 50 MG TAB PO PRN ×2 (02:23→20:03)
[2020-03-21 06:00] VITALS: BP 125/76
[2020-03-21 06:48] LABS: Potassium 4.3 mmol/L (3.5-5.1)
[2020-03-21 07:18] LABS: Albumin 3.3 g/dL (3.4-5.0); BUN/Creatinine Ratio 31.1; Bilirubin, Total 0.8 mg/dL (0.2-1.0); Calcium 8.2 mg/dL (8.5-10.1); Magnesium 2.2 mg/dL (1.6-2.6); Total Protein 7.6 g/dL (6.4-8.2)
[2020-03-21 08:00] VITALS: BP 130/53
[2020-03-21] MEDS: APIXABAN 5 MG TAB PO SCH ×2 (09:57→21:43)
[2020-03-21] MEDS: LOSARTAN POTASSIUM 25 MG TAB PO SCH (09:57)
[2020-03-21] MEDS: POTASSIUM CHL 20 Meq TABLET PO SCH (09:57)
[2020-03-21] MEDS: FUROSEMIDE 20 MG TAB PO SCH (09:58)
[2020-03-21 12:00] VITALS: BP 117/70
[2020-03-21] MEDS: ACETAMINOPHEN 325 MG TAB PO PRN (14:33)
--- NOTE | 2020-03-21 15:40 | NUR ---
O2 sat/walked in hallway This nurse ambulated with patient in hallway. Her O2 sat dropped to 78% on room air and she was short of breath upon returning to the room. She was walked to the end of the nurse's station and back to her room. She was placed back on 2L O2 via NC and her O2 sat returned to 95%.
[2020-03-21 17:00] VITALS: BP 124/64
--- NOTE | 2020-03-21 18:00 | NUR ---
Orthostatic V/S Lying down B/P 124/64, HR 44 Sitting B/P 126/68, HR 53 Standing B/P 147/72, HR 65
--- NOTE | 2020-03-21 19:35 | NUR ---
Opening Shift Note Assumed care of patient, awake and alert. No S/S of distress/SOB noted. Instructed on POC and to call for assist PRN. Bed is in lowest locked position with bed rails up x2 and call light is within reach. Bed alarm is armed.
[2020-03-21 21:31] VITALS: BP 117/62
[2020-03-21] MEDS: ATORVASTATIN 20 MG TAB PO SCH (21:43)
[2020-03-21] MEDS: HYDROcodone-ACET 5/325MG TAB PO PRN (23:39)
[2020-03-22 04:53] VITALS: BP 127/76
[2020-03-22 06:11] LABS: Albumin 3.5 g/dL (3.4-5.0); Calcium 8.4 mg/dL (8.5-10.1); Potassium 4.4 mmol/L (3.5-5.1)
[2020-03-22 06:17] LABS: BUN/Creatinine Ratio 31.3; Bilirubin, Total 0.7 mg/dL (0.2-1.0); Total Protein 7.8 g/dL (6.4-8.2)
[2020-03-22] MEDS: traMADol HCL 50 MG TAB PO PRN (08:30)
[2020-03-22 08:45] VITALS: BP 153/83
[2020-03-22] MEDS: POTASSIUM CHL 20 Meq TABLET PO SCH (09:55)
[2020-03-22] MEDS: LOSARTAN POTASSIUM 25 MG TAB PO SCH (09:55)
[2020-03-22] MEDS: FUROSEMIDE 20 MG TAB PO SCH (09:56)
[2020-03-22] MEDS: APIXABAN 5 MG TAB PO SCH ×2 (09:56→22:19)
[2020-03-22] MEDS: ACETAMINOPHEN 325 MG TAB PO PRN (09:56)
--- NOTE | 2020-03-22 09:57 | NUR ---
c/o headache Patient c/o headache since yesterday. Daughter said the patient doesn't get headaches and this one is very bad. She said the pain medication isn't helping. Hot packs were also given. This nurse gave Ultram. Dr. Christian was notified of the headache complaints and he asked if she was on a Nitro patch. No orders for Nitro patch for this patient. He said there is nothing that would be causing a headache and to give Tylenol now. Tylenol given. Will monitor and assess patient in an hour.
--- NOTE | 2020-03-22 11:30 | NUR ---
Assessment Patient is an 84-year-old female who is alert and oriented. Admission was completed with patient daughter Shanice ). Per Shanice prior to admission patient live home with her and functioned independently. Per Shanice patient has a walker for home use. Per Shanice patient will return home to her prior living arrangements post discharge and she will transport patient home. Advised Shanice there is a socials service consult for home oxygen. Informed Shanice clinical information will be faxed to [email or web address] and portable will be deliver to bedside. Informed Shanice she has the right to participate in all discharge planning. Shanice verbalized understanding and agreed to discharge plan. BENTON Trejo will obtain authorization from [employer]. Per Colt with [email or web address] Ph:( [phone]) or Ph:) they will deliver oxygen to bed side when they obtain authorization from [employer] and concentrate oxygen to home. Addendum: 03/23/20 at 1023 by MYRON CONKLIN Amended: Links added.
[2020-03-22 13:00] VITALS: BP 134/82
--- NOTE | 2020-03-22 16:38 | NUR ---
1635 03/22/20 - Faxed to [facility] at [phone] order for home oxygen via [place], requesting authorization be sent to [employer] Contacted bottle caser May at [phone] who confirmed receipt of faxed orders and stated approved authorization had already been sent to [employer].
[2020-03-22 17:18] VITALS: BP 142/89
[2020-03-22] MEDS ORDERED: IOHEXOL 350 MG/ML 100ML IJ ONE (18:44)
--- NOTE | 2020-03-22 19:42 | NUR ---
Pt complaining of chest pain Spoke with daughter Shanice to translate and pt is complaining of chest pain 05/09. BP 149/77, pulse 68, O2 sat 86%. Placed nasal cannula at 4L and gave one dose of nitroglycerin. Did EKG which showed A Fib. MD is aware of heart rhythm.
--- NOTE | 2020-03-22 19:50 | NUR ---
Chest pain reassessment Pt is still having chest pain. BP 135/81, pulse rate 69, O2 sat at 94%. Gave second dose of nitroglycerin. Will continue to monitor
--- NOTE | 2020-03-22 19:55 | NUR ---
Chest pain reassessment Pt stating chest pain is much better. Stating 5/10 pain. BP 139/90, pulse 68, O2 sat 97%. Will continue to monitor
[2020-03-22] MEDS: NITROGLYCERIN 0.4 MG SL TAB SL PRN ×2 (19:57→20:03)
--- NOTE | 2020-03-22 20:00 | NUR ---
Opening Shift Note Assumed care of patient. Awake, alert and oriented x4. After following chest pain protocol, pt isn't showing any S/S of distress, pain or SOB. Instructed on POC and to call for assist PRN. Bed locked, in lowest position, call light within reach, side rails up x2. Will continue to monitor for changes Q1hr and PRN.
[2020-03-22 22:00] VITALS: BP 149/71
[2020-03-22] MEDS: ATORVASTATIN 20 MG TAB PO SCH (22:19)
[2020-03-23 05:00] VITALS: BP 129/72
[2020-03-23] MEDS: ACETAMINOPHEN 325 MG TAB PO PRN (06:51)
--- NOTE | 2020-03-23 07:40 | NUR ---
Closing shift note Care endorsed to day shift RN. No S/S of distress, SOB or pain noted
--- NOTE | 2020-03-23 08:00 | NUR ---
Opening Shift Note Assumed care of patient, awake, alert, and oriented. No S/S of distress/SOB or pain. Bed in lowest/locked position, bed rails upx2, call light within reach. Instructed on POC and to call for assist PRN. Will continue to monitor for changes Q1hr and PRN.
[2020-03-23 08:50] VITALS: BP 59/71
[2020-03-23] MEDS: POTASSIUM CHL 20 Meq TABLET PO SCH (10:00)
[2020-03-23] MEDS: FUROSEMIDE 20 MG TAB PO SCH (10:00)
[2020-03-23] MEDS: LOSARTAN POTASSIUM 25 MG TAB PO SCH (10:51)
--- NOTE | 2020-03-23 11:05 | NUR ---
OFF UNIT PATIENT TRANSFERRED TO AUDIT SPECIALIST
[2020-03-23 11:24] LABS: INR 1.13 (0.9-1.15)
[2020-03-23] MEDS ORDERED: LIDOCAINE 2%HCL (LOCAL ANESTH.) INJ 20ML MDV ONE (11:29)
[2020-03-23] MEDS ORDERED: IOHEXOL 350 MG/ML 100ML IJ ONE (11:29)
[2020-03-23] MEDS ORDERED: ANGIOMAX 250 MG VIAL IV ONE (11:30)
[2020-03-23] MEDS ORDERED: MIDAZOLAM HCL 1MG/1ML-2 ML VIAL ONE (11:30)
[2020-03-23] MEDS ORDERED: fentaNYL CITRATE 100 MCG/2 ML VL ONE (11:30)
[2020-03-23] MEDS ORDERED: SODIUM CHL 0.9% 0 ML ONE (11:31)
--- NOTE | 2020-03-23 12:07 | NUR ---
Nutrition Assessment Notes please see attached link for complete assessment Est energy needs ABW 69 [id number] kcal (20-23 kcal/kg BW) Est protein needs 69-75g (1-1.1g/kg BW) Will continue to monitor and reassess prn. Addendum: 03/23/20 at [address] Amended: Links added.
--- NOTE | 2020-03-23 12:08 | NUR ---
D/C Planning Received a follow up called from [facility] with [facility] advising me he spoke to patient daughter Shanice regarding oxygen. Per [facility] they will deliver medical equipment to home and Shanice will bring it to the hospital when patient is ready to be discharge. MARY Pratt was informed.
[2020-03-23 13:00] VITALS: BP 150/76
--- NOTE | 2020-03-23 13:00 | NUR ---
PAGED MD STACI LANGLEY RE: ULTRASOUND OF LEFT BREATH. SPOKE WITH SAÚL IN ULTRASOUND RE: LEFT BREAST US. PER SAÚL; MAMMOGRAM IS RECOMMENDED PRIOR TO ULTRASOUND AND WOULD LIKE TO SEE IF PATIENT CAN FOLLOW UP OUTPATIENT. WILL NOTIFY
--- NOTE | 2020-03-23 13:12 | NUR ---
MD CALL DR LANGLEY RETURNED CALL RE: PATIENT ULTRASOUND. PER DR LANGLEY IF MAMMOGRAM CAN BE PERFORMED IN HOSPITAL, HAVE IT PERFORMED, OTHERWISE RESUME ORDERS OF LEFT BREAST ULTRASOUND. SAÚL INSPECTOR PRINTED CIRCUIT BOARDS MADE AWARE
--- NOTE | 2020-03-23 13:25 | NUR ---
ON UNIT PATIENT RETURNED TO UNIT FROM AUTOMATION TENDER. DRESSING TO RIGHT GROIN C/D/I. NO S/S OF DISTRESS, SOB. PATIENT INSTRUCTED TO LAY FLAT UNTIL 1440. WILL CONTINUE TO MONITOR
[2020-03-23] MEDS ORDERED: ACETYLCYSTEINE ORAL for CIN 20%(200MG/ML) 4ML PO ONE (13:45)
[2020-03-23] MEDS ORDERED: SODIUM CHLORIDE 0.9% 500 ML IV ONE (13:45)
--- NOTE | 2020-03-23 13:45 | NUR ---
PATIENT OFF UNIT Addendum: 03/23/20 at 1345 by TIMMY JAIMES RN RN Amended: Links added.
--- NOTE | 2020-03-23 13:47 | NUR ---
PATIENT OFF UNIT Addendum: 03/23/20 at 1347 by TIMMY JAIMES RN RN Amended: Links added.
--- NOTE | 2020-03-23 13:48 | NUR ---
MD DR BENITES AT BEDSIDE
[2020-03-23] MEDS: SILDENAFIL CITRATE 20 MG TAB PO SCH ×2 (15:25→21:20)
[2020-03-23 16:57] VITALS: BP 140/78
--- NOTE | 2020-03-23 20:10 | NUR ---
Pt complaining of chest pain Chest pain 05/09. EKG done. BP 156/83, pulse rate 75, O2 sats 98%. Gave first dose of nitroglycerin. Will continue to monitor
[2020-03-23] MEDS: NITROGLYCERIN 0.4 MG SL TAB SL PRN ×3 (20:11→20:35)
--- NOTE | 2020-03-23 20:15 | NUR ---
Chest pain reassessment Pt stating pain is 7/10. BP 137/77, pulse rate 64, O2 sats 92% on 4L nasal cannula. Gave second dose of nitroglycerin. Will continue to monitor
--- NOTE | 2020-03-23 20:25 | NUR ---
Chest pain reassessment Pt stating pain is still at 7/10. BP 139/78, pulse rate 60. Gave third dose of nitroglycerin. Will continue to monitor.
--- NOTE | 2020-03-23 20:30 | NUR ---
Chest pain reassessment Pt stating pain is 6/10 and is "better". No complaints of chest pain. Will continue to monitor
--- NOTE | 2020-03-23 20:45 | NUR ---
Respiratory note: BEDSIDE SPIROMETRY DONE WITH GOOD EFFORT. DAUGHTER WAS ON THE PHONE TRANSLATING DUE TO A LANGUAGE BARRIER. PT ONLY SPEAKS [place]. RESULTS WILL BE PRINTED IN AM BY DAYSHIFT RT AND PLACED IN PATIENT'S CHART.
[2020-03-23] MEDS: ATORVASTATIN 20 MG TAB PO SCH (21:20)
[2020-03-23] MEDS: traMADol HCL 50 MG TAB PO PRN (21:38)
[2020-03-23 22:14] VITALS: BP 139/78
[2020-03-24 05:36] VITALS: BP 133/73
[2020-03-24 05:55] LABS: Basophils # (auto) 0 10 ^3/uL (0-0.2); Basophils % (auto) 0.3 % (0.0-2.0); Eosinophils # (auto) 0.2 10 ^3/uL (0-0.8); Hemoglobin 11.7 g/dL (12.2-16.2); Lymphocytes # (auto) 1.1 10 ^3/uL (0.4-5.4); Lymphocytes % (auto) 22.7 % (10.0-50.0); Mean Corpuscular Hemoglobin 31.1 pg (28.0-32.0); Mean Corpuscular Hgb Conc. 33.5 g/dL (32.0-36.0); Monocytes # (auto) 0.6 10 ^3/uL (0-1.3); Monocytes % (auto) 11.3 % (0.0-12.0); Neutrophils # (auto) 3.1 10 ^3/uL (1.6-8.6); Neutrophils % (auto) 62.7 % (37.0-80.0); Nucleated Red Blood Cells % 0.1 %; Platelet Count (auto) 169 10^3/uL (140-450); Red Blood Cells 3.76 10^6/uL (4.0-5.20); Red Cell Distribution Width 12.8 % (11.8-14.3)
[2020-03-24 06:07] LABS: INR 1.13 (0.9-1.15); Partial Thromboplastin Time 28.2 sec (23.64-32.05)
[2020-03-24 06:23] LABS: BUN/Creatinine Ratio 17.7; Calcium 8.2 mg/dL (8.5-10.1); Potassium 3.7 mmol/L (3.5-5.1)
[2020-03-24 08:15] VITALS: BP 147/80
[2020-03-24 09:00] VITALS: BP 147/80
[2020-03-24] MEDS: POTASSIUM CHL 20 Meq TABLET PO SCH (09:15)
[2020-03-24] MEDS: LOSARTAN POTASSIUM 25 MG TAB PO SCH (09:15)
[2020-03-24] MEDS: FUROSEMIDE 20 MG TAB PO SCH (09:16)
[2020-03-24] MEDS: SILDENAFIL CITRATE 20 MG TAB PO SCH ×3 (09:16→20:38)
--- NOTE | 2020-03-24 09:47 | NUR ---
Wilfrido Mckinnon. ordered to hold the Eliquis, patient has orders for biopsy today. said he already spoke with the patient's daughter.
--- NOTE | 2020-03-24 10:40 | NUR ---
laundry press operator Selina called back that patient can have meals before biopsy, follow up with daughter when the last time patient had Eliquis before hospitalization. Will call daughter.
--- NOTE | 2020-03-24 11:00 | NUR ---
MARY Caban made aware I attempted to call patient's daughter Shanice ([phone]) but phone on voicemail. Left a message to call back. Will call again.
--- NOTE | 2020-03-24 11:10 | NUR ---
Daughter Shanice called back. Nicole said Dr. Christian called her regarding the biopsy, she can come over to sign the consent, she can also call her mother and explained to her in Swahili the procedure so the patient can sign the consent. Patient awake, oriented x4.
--- NOTE | 2020-03-24 11:17 | NUR ---
Daughter Shanice said the last time patient had Eliquis was on Saturday, March 19, 2020.
--- NOTE | 2020-03-24 11:18 | NUR ---
Called MARY Caban that patient had Eliquis last Saturday, March 19, 2020 as per daughter Shanice.
--- NOTE | 2020-03-24 12:10 | NUR ---
Dr. Selby called for Pulmonology follow up.
[2020-03-24 12:54] VITALS: BP 108/58
--- NOTE | 2020-03-24 13:41 | NUR ---
assessment Patient is a 84 year old Swahili speaking female who is alert and oriented. I have called patients daughter Shanice for assessment questions. Per Shanice prior to admission patient lived home with her and family and functioned with her assistance. Per Shanice patient will return home with her on discharge. Patient has a fww and home oxygen for home use. Patients pcp is Dr Ruvalcaba. Patient has been admitted for NSTEMI. Patient is having a biopsy today. I informed Shanice I would continue to monitor patient for any post discharge needs. Shanice verbalized understanding. Addendum: 03/24/20 at 1346 by Vale CONKLIN Amended: Links added.
[2020-03-24 17:00] VITALS: BP 136/75
[2020-03-24] MEDS: traMADol HCL 50 MG TAB PO PRN (17:33)
--- NOTE | 2020-03-24 17:33 | NUR ---
Patient has facial grimacing, pointing on her head and whole body. Patient in pain. Ultram 50 mg PO PRN given for pain.
--- NOTE | 2020-03-24 18:55 | NUR ---
Hold the Eliquis. Patient has orders for biopsy.
--- NOTE | 2020-03-24 20:00 | NUR ---
Received patient from Bianca HERNANDEZ. Patient is A/O x4, ambulatory, no S/S of distress, SOB, or pain. Call light is within reach, updated on POC, will continue to monitor.
[2020-03-24 22:00] VITALS: BP 138/107
[2020-03-24] MEDS: APIXABAN 5 MG TAB PO SCH (22:00)
[2020-03-24] MEDS: ATORVASTATIN 20 MG TAB PO SCH (22:27)
[2020-03-24] MEDS: HYDROcodone-ACET 5/325MG TAB PO PRN (22:34)
--- NOTE | 2020-03-24 22:34 | NUR ---
Patient is complaining of pain to the whole body, 7/0-10. [place] 5 given for pain, will reassess.
--- NOTE | 2020-03-24 23:34 | NUR ---
Pain reassessment Patient is resting in bed, no S/S of pain noted, will continue to monitor.
[2020-03-25 05:00] VITALS: BP 113/56
--- NOTE | 2020-03-25 08:00 | NUR ---
Opening Shift Note Assumed care of patient, awake and alert. No S/S of distress/SOB or pain. Instructed on POC and to call for assist PRN, will continue to monitor for changes Q1hr and PRN.
[2020-03-25] MEDS: SILDENAFIL CITRATE 20 MG TAB PO SCH ×2 (08:15→14:15)
[2020-03-25 08:57] VITALS: BP 135/57
[2020-03-25] MEDS: LOSARTAN POTASSIUM 25 MG TAB PO SCH (09:55)
[2020-03-25] MEDS: FUROSEMIDE 20 MG TAB PO SCH (09:56)
[2020-03-25] MEDS: POTASSIUM CHL 20 Meq TABLET PO SCH (09:56)
[2020-03-25] MEDS: APIXABAN 5 MG TAB PO SCH (09:59)
[2020-03-25] MEDS: ACETAMINOPHEN 325 MG TAB PO PRN (09:59)
[2020-03-25 13:00] VITALS: BP 123/79
[2020-03-25 13:29] VITALS: BP 135/57
--- NOTE | 2020-03-25 14:30 | NUR ---
Discharge instructions given as ordered. Encourage to follow up with PMD Dr. Zapien #[phone](tele visit will contact the patient) as instructed. All questions and concerns addressed. Patient verbalized understanding. Medication reconciliation form completed and copy given to patient. IV removed with catheter intact, pressure dressing applied. Telemetry unit returned to ICU. Patient taken to vehicle via wheelchair with all personal belongings, accompanied by staff and family member. No distress noted at time of departure.
== END 2020-03-25 14:30 | disposition home or self-care (01) | DRG 180 ==
LOC: ER 18:50 → TELE 18:51 → TELE-CENTR 03-20 15:34
PROVIDERS: ADMIT Hospitalist; ATTEND Internal Medicine
PROC: 4A023N8 Measurement of Cardiac Sampling and Pressure, Bilateral, Percutaneous Approach (ICD-10-PCS; 2020-03-23)
PROC: B211YZZ Fluoroscopy of Multiple Coronary Arteries using Other Contrast (ICD-10-PCS; 2020-03-23)
PROC: B215YZZ Fluoroscopy of Left Heart using Other Contrast (ICD-10-PCS; 2020-03-23)
PROC: 4A033BC Measurement of Arterial Pressure, Coronary, Percutaneous Approach (ICD-10-PCS; 2020-03-23)
PROC: 07B63ZX Excision of Left Axillary Lymphatic, Percutaneous Approach, Diagnostic (ICD-10-PCS; principal; 2020-03-25)
DX: I21.4 Non-ST elevation (NSTEMI) myocardial infarction (principal); I50.33 Acute on chronic diastolic (congestive) heart failure; I27.21 Secondary pulmonary arterial hypertension; I48.91 Unspecified atrial fibrillation; I50.82 Biventricular heart failure; N39.0 Urinary tract infection, site not specified; R00.1 Bradycardia, unspecified; E66.9 Obesity, unspecified; D64.9 Anemia, unspecified; I25.10 Atherosclerotic heart disease of native coronary artery without angina pectoris; N63.20 Unspecified lump in the left breast, unspecified quadrant; M19.90 Unspecified osteoarthritis, unspecified site; R51 Headache; R59.0 Localized enlarged lymph nodes; Z68.38 Body mass index [BMI] 38.0-38.9, adult; Z79.01 Long term (current) use of anticoagulants; Z90.49 Acquired absence of other specified parts of digestive tract; I11.0 Hypertensive heart disease with heart failure
CPT/HCPCS: 10022; 36415; 71045; 71275; 76642; 76942; 80048; 80053; 81001; 83735; 83880; 84443; 84484; 85025; 85610; 85730; 88361; 88367; 93005; 93306; 93460; 93571; 93971; 94060; 96365; 96375; 96376; 99152; 99153; C1751; G0378; J0461; J0610; J2250; J2405

== ENCOUNTER 2020-06-06 10:13 | Emergency (ER) | payer MEDICAID ==
[~2020-06-06] VITALS: Ht 160 cm; Wt 89.4 kg
[~2020-06-06 10:13] MED LIST changes: -LORA-622 PO; +METH750T3 PO; -POTA-220 PO; +POTA8TAB2 PO; +ZOLP5TAB5 PO
[2020-06-06 10:59] LABS: Basophils # (auto) 0 10 ^3/uL (0-0.2); Basophils % (auto) 0.7 % (0.0-2.0); Eosinophils # (auto) 0.1 10 ^3/uL (0-0.8); Eosinophils % (auto) 1.5 % (0.0-7.0); Hemoglobin 10.7 g/dL (12.2-16.2); Lymphocytes # (auto) 1.3 10 ^3/uL (0.4-5.4); Lymphocytes % (auto) 21.1 % (10.0-50.0); Mean Corpuscular Hemoglobin 29.8 pg (28.0-32.0); Mean Corpuscular Hgb Conc. 31.6 g/dL (32.0-36.0); Mean Corpuscular Volume 94.5 fL (80.0-100.0); Monocytes # (auto) 0.6 10 ^3/uL (0-1.3); Monocytes % (auto) 9.5 % (0.0-12.0); Neutrophils # (auto) 4.3 10 ^3/uL (1.6-8.6); Neutrophils % (auto) 67.2 % (37.0-80.0); Nucleated Red Blood Cells % 0.1 %; Platelet Count (auto) 145 10^3/uL (140-450); White Blood Cell 6.3 10^3/uL (4.4-10.8)
[2020-06-06 11:21] LABS: INR 1.18 (0.9-1.15); Partial Thromboplastin Time 31.2 sec (23.0-31.2)
[2020-06-06 11:47] LABS: Albumin 3.6 g/dL (3.4-5.0); Calcium 8.2 mg/dL (8.5-10.1); Magnesium 2.6 mg/dL (1.6-2.6); Potassium 4.1 mmol/L (3.5-5.1)
[2020-06-06 11:54] LABS: BUN/Creatinine Ratio 21.3; Total Protein 7.9 g/dL (6.4-8.2)
[2020-06-06 12:34] LABS: Urine Bacteria FEW /hpf (None Seen); Urine Blood Negative /uL (Negative); Urine Specific Gravity 1.009 (1.001-1.035); Urine WBC <1 /hpf (0 - 5)
[2020-06-06] MEDS ORDERED: SPIRONOLACTONE 25 MG TAB PO ONE (12:45)
[2020-06-06] MEDS ORDERED: FUROSEMIDE 20 MG/2 ML VIAL IV ONE (12:45)
[2020-06-06 13:23] VITALS: BP 130/47
== END 2020-06-06 14:17 | disposition home or self-care (01) ==
LOC: ER 10:13
DX: I48.20 Chronic atrial fibrillation, unspecified (principal); E11.21 Type 2 diabetes mellitus with diabetic nephropathy; R60.0 Localized edema; D63.8 Anemia in other chronic diseases classified elsewhere; I11.0 Hypertensive heart disease with heart failure; I50.9 Heart failure, unspecified; M19.90 Unspecified osteoarthritis, unspecified site
CPT/HCPCS: 36415; 71045; 80053; 81001; 83735; 83880; 84484; 85025; 85610; 85730; 93005; 96374; 99285; J1940

== ENCOUNTER → 2020-06-20 | Outpatient (CLI) | payer MEDICAID ==
[~2020-06-20] VITALS: Ht 30.5 cm; Wt 89.2 kg
[~2020-06-20] MED LIST changes: +CYANOCOBALAMIN (B-12) 1000 MCG/1 ML VIAL IM ONE; +CYANOCOBALAMIN (B-12) 1000 MCG/1 ML VIAL ONE
[2020-06-20 10:00] VITALS: BP 131/63
--- NOTE | 2020-06-20 10:00 | NUR ---
PATIENT INTO CLINIC FOR SCHEDULED APPT, AAOx4, AMBULATORY, HOME O2 2LPM. PATIENT DAUGHTER WITH HER AT CHAIRSIDE, BOTH UNSURE OF MEDICATION LIST ASKED TO BRING IN ON NEXT VISIT. PATIENT SAYS THAT OPSUMIT ARRIVED AND THAT WHEN SHE WENT TO [facility] HER PRESCRIPTION THE PHARMACIST TOLD HER THAT COUMADIN AND ELIQUIS ARE THE SAME AND THAT YOU DON'T TAKE BOTH OF THEM, SO PATIENT ONLY PICKED UP THE ELIQUIS.
[2020-06-20 11:00] VITALS: BP 139/68
--- NOTE | 2020-06-20 11:00 | NUR ---
Discharge Instructions See e-MAR for any mediations given with this visit. Patient education given on disease process. Patient verbalized understanding. Previous labs reviewed. Patient discharged in stable condition with after care instructions and follow up appointment. NOTE B12 IM R DELTOID ADMIN BY LAUREN HANNA. EKG-BRADYCARDIA, ASYMPTOMATIC.
[2020-06-20 12:13] LABS: Basophils # (auto) 0 10 ^3/uL (0-0.2); Basophils % (auto) 0.2 % (0.0-2.0); Eosinophils # (auto) 0.1 10 ^3/uL (0-0.8); Eosinophils % (auto) 2.2 % (0.0-7.0); Hematocrit 31.7 % (36.0-46.0); Hemoglobin 10.5 g/dL (12.2-16.2); Lymphocytes # (auto) 1.4 10 ^3/uL (0.4-5.4); Lymphocytes % (auto) 29.9 % (10.0-50.0); Mean Corpuscular Hemoglobin 30.7 pg (28.0-32.0); Mean Corpuscular Hgb Conc. 33.1 g/dL (32.0-36.0); Mean Corpuscular Volume 92.9 fL (80.0-100.0); Monocytes # (auto) 0.5 10 ^3/uL (0-1.3); Monocytes % (auto) 11.4 % (0.0-12.0); Neutrophils # (auto) 2.6 10 ^3/uL (1.6-8.6); Neutrophils % (auto) 56.3 % (37.0-80.0); Nucleated Red Blood Cells % 0.1 %; Platelet Count (auto) 137 10^3/uL (140-450); Red Blood Cells 3.42 10^6/uL (4.0-5.20); Red Cell Distribution Width 13.3 % (11.8-14.3); White Blood Cell 4.6 10^3/uL (4.4-10.8)
[2020-06-20 12:19] LABS: Potassium 3.8 mmol/L (3.5-5.1)
[2020-06-20 12:33] LABS: Albumin 3.3 g/dL (3.4-5.0); Bilirubin, Total 0.6 mg/dL (0.2-1.0); Calcium 8.1 mg/dL (8.5-10.1); Magnesium 2.4 mg/dL (1.6-2.6); Total Protein 7.6 g/dL (6.4-8.2)
== END | disposition home or self-care (01) ==
LOC: CHF HDHVI 10:17
PROVIDERS: ATTEND Internal Medicine
DX: I27.0 Primary pulmonary hypertension (principal); I48.20 Chronic atrial fibrillation, unspecified; I50.9 Heart failure, unspecified; E11.21 Type 2 diabetes mellitus with diabetic nephropathy; M19.90 Unspecified osteoarthritis, unspecified site
CPT/HCPCS: 36415; 80053; 82306; 82607; 83735; 83880; 85025; 93005; 96372; G0463; J3420

== ENCOUNTER 2020-09-25 12:04 | Inpatient (IN) | payer MEDICAID ==
[~2020-09-25] VITALS: Ht 162.6 cm; Wt 72.6 kg
[~2020-09-25 12:04] MED LIST changes: -CYANOCOBALAMIN (B-12) 1000 MCG/1 ML VIAL IM ONE; -CYANOCOBALAMIN (B-12) 1000 MCG/1 ML VIAL ONE; +METH750T22 PO; -METH750T3 PO
[2020-09-25 13:49] LABS: Basophils # (auto) 0 10 ^3/uL (0-0.2); Basophils % (auto) 0.1 % (0.0-2.0); Eosinophils # (auto) 0 10 ^3/uL (0-0.8); Hematocrit 34.3 % (36.0-46.0); Hemoglobin 11.9 g/dL (12.2-16.2); Lymphocytes # (auto) 0.5 10 ^3/uL (0.4-5.4); Lymphocytes % (auto) 5.4 % (10.0-50.0); Mean Corpuscular Hemoglobin 32.1 pg (28.0-32.0); Mean Corpuscular Hgb Conc. 34.6 g/dL (32.0-36.0); Mean Corpuscular Volume 92.7 fL (80.0-100.0); Monocytes # (auto) 0.2 10 ^3/uL (0-1.3); Monocytes % (auto) 2.1 % (0.0-12.0); Neutrophils % (auto) 92.4 % (37.0-80.0); Red Cell Distribution Width 15.6 % (11.8-14.3); White Blood Cell 8.7 10^3/uL (4.4-10.8)
[2020-09-25 14:07] LABS: Albumin 2.8 g/dL (3.4-5.0); BUN/Creatinine Ratio 14.6; Calcium 8.1 mg/dL (8.5-10.1); Potassium 3.7 mmol/L (3.5-5.1)
[2020-09-25 14:12] LABS: Bilirubin, Total 0.8 mg/dL (0.2-1.0); Total Protein 7.3 g/dL (6.4-8.2)
[2020-09-25] MEDS ORDERED: FUROSEMIDE 20 MG/2 ML VIAL ONE (15:31)
[2020-09-25] MEDS ORDERED: FUROSEMIDE 20 MG/2 ML VIAL IV ONE (15:45)
[2020-09-25 18:05] VITALS: BP 120/62
[2020-09-25] MEDS ORDERED: DexAMETHasone SOD PHOS 10MG/1ML VIAL INJ IV ONE (19:30)
[2020-09-25] MEDS ORDERED: DOXYCYCLINE 100MG/250ML 250 ML IV ONE (19:30)
[2020-09-25] MEDS ORDERED: AZITHROMYCIN 500MG/ 250ML 250 ML IV ONE (19:30)
[2020-09-25] MEDS ORDERED: NITROGLYCERIN 0.4 MG SL TAB SL PRN (20:30)
[2020-09-25] MEDS ORDERED: ALBUTEROL SULF HFA 90MCG INH 200DOSE IN SCH (22:00)
[2020-09-25] MEDS ORDERED: ALBUTEROL SULF HFA 90MCG INH 200DOSE IN PRN (22:00)
[2020-09-25 22:52] LABS: INR 1.06 (0.9-1.15); Partial Thromboplastin Time 28.9 sec (23.0-31.2)
[2020-09-25 23:07] VITALS: BP 117/62
[2020-09-25] MEDS: ENOXAPARIN SOD 40 MG/0.4 ML SYRINGE SC SCH (23:18)
[2020-09-25] MEDS: ASCORBIC ACID 500 MG TAB PO SCH (23:18)
[2020-09-26 02:22] VITALS: BP 113/69
[2020-09-26 05:17] LABS: Basophils # (auto) 0 10 ^3/uL (0-0.2); Basophils % (auto) 0.1 % (0.0-2.0); Eosinophils # (auto) 0 10 ^3/uL (0-0.8); Hematocrit 34.5 % (36.0-46.0); Lymphocytes # (auto) 0.3 10 ^3/uL (0.4-5.4); Lymphocytes % (auto) 3.5 % (10.0-50.0); Mean Corpuscular Hemoglobin 31.8 pg (28.0-32.0); Mean Corpuscular Hgb Conc. 34.7 g/dL (32.0-36.0); Mean Corpuscular Volume 91.8 fL (80.0-100.0); Monocytes # (auto) 0.1 10 ^3/uL (0-1.3); Monocytes % (auto) 1.9 % (0.0-12.0); Neutrophils # (auto) 7.5 10 ^3/uL (1.6-8.6); Neutrophils % (auto) 94.5 % (37.0-80.0); Red Blood Cells 3.76 10^6/uL (4.0-5.20); Red Cell Distribution Width 15.3 % (11.8-14.3); White Blood Cell 7.9 10^3/uL (4.4-10.8)
[2020-09-26 05:32] LABS: Calcium 8.5 mg/dL (8.5-10.1); Potassium 3.9 mmol/L (3.5-5.1)
[2020-09-26] MEDS: DexAMETHasone SOD PHOS 10MG/1ML VIAL INJ IV SCH (07:44)
[2020-09-26] MEDS: ASCORBIC ACID 500 MG TAB PO SCH ×2 (07:45→22:35)
[2020-09-26] MEDS: ENOXAPARIN SOD 40 MG/0.4 ML SYRINGE SC SCH ×2 (07:45→22:35)
[2020-09-26] MEDS: AZITHROMYCIN 500MG/ 250ML 250 ML IV SCH (07:45)
[2020-09-26] MEDS: CHOLECALCIFEROL (VITD3) 2,000 UNIT CAP/TAB PO SCH (07:45)
[2020-09-26] MEDS: cefTRIAXone 1GM/50ML D5W 50 ML IV SCH (07:45)
[2020-09-26] MEDS: ZINC SULFATE 220mg CAP or TAB PO SCH (07:45)
[2020-09-26 08:00] VITALS: BP 109/59
[2020-09-26] MEDS ORDERED: DEXTROSE (50%) 50ML SYRG IV PRN (10:45)
[2020-09-26] MEDS: InsuLIN REG 1unit/0.01ml Soln (100units/ml) SC SCH ×3 (11:38→22:38)
[2020-09-26] MEDS: ACCU-CHEK COMFORT CURVE STRIP VI SCH ×3 (11:39→22:35)
[2020-09-26] MEDS ORDERED: REMDESIVIR PER PHARMACY 0 ML IV SCH (11:45)
[2020-09-26 12:32] VITALS: BP 117/63
[2020-09-26 14:50] VITALS: BP 124/63
[2020-09-26] MEDS ORDERED: REMDESIVIR 200 MG in NS 210ml LOADING DOSE ADULT IV ONE (15:00)
[2020-09-26 17:50] VITALS: BP 126/70
[2020-09-26 21:35] VITALS: BP 124/74
[2020-09-27 02:15] VITALS: BP 125/67
[2020-09-27 06:36] VITALS: BP 124/74
[2020-09-27] MEDS: ACCU-CHEK COMFORT CURVE STRIP VI SCH ×4 (08:00→21:24)
[2020-09-27] MEDS: InsuLIN REG 1unit/0.01ml Soln (100units/ml) SC SCH ×4 (08:05→21:23)
[2020-09-27 09:34] LABS: Potassium 3.4 mmol/L (3.5-5.1)
[2020-09-27] MEDS: CHOLECALCIFEROL (VITD3) 2,000 UNIT CAP/TAB PO SCH (10:00)
[2020-09-27] MEDS: ASCORBIC ACID 500 MG TAB PO SCH ×2 (10:12→21:23)
[2020-09-27] MEDS: ZINC SULFATE 220mg CAP or TAB PO SCH (10:12)
[2020-09-27] MEDS: DexAMETHasone SOD PHOS 10MG/1ML VIAL INJ IV SCH (10:19)
[2020-09-27] MEDS: ENOXAPARIN SOD 40 MG/0.4 ML SYRINGE SC SCH ×2 (10:19→21:24)
[2020-09-27] MEDS: cefTRIAXone 1GM/50ML D5W 50 ML IV SCH (10:24)
[2020-09-27 10:32] LABS: Albumin 2.3 g/dL (3.4-5.0); BUN/Creatinine Ratio 31.6; Bilirubin, Total 0.6 mg/dL (0.2-1.0); Calcium 8.8 mg/dL (8.5-10.1); Total Protein 7.2 g/dL (6.4-8.2)
[2020-09-27] MEDS: AZITHROMYCIN 500MG/ 250ML 250 ML IV SCH (11:04)
[2020-09-27] MEDS: REMDESIVIR 100 MG in SODIUM CHL 0.9% 250 ML IV SCH (15:54)
[2020-09-27 18:00] VITALS: BP 121/73
[2020-09-27] MEDS ORDERED: diphenhdrAMINE HCL 50 MG/1 ML VL ONE (18:43)
[2020-09-27] MEDS ORDERED: diphenhdrAMINE HCL 50 MG/1 ML VL IV ONE (19:00)
[2020-09-27 22:25] VITALS: BP 137/88
[2020-09-28 02:25] VITALS: BP 133/75
[2020-09-28 06:40] VITALS: BP 125/73
[2020-09-28 06:57] LABS: Albumin 2.3 g/dL (3.4-5.0); BUN/Creatinine Ratio 23.9; Calcium 8.5 mg/dL (8.5-10.1); Potassium 3.8 mmol/L (3.5-5.1)
[2020-09-28] MEDS: InsuLIN REG 1unit/0.01ml Soln (100units/ml) SC SCH ×4 (07:00→22:00)
[2020-09-28] MEDS: ACCU-CHEK COMFORT CURVE STRIP VI SCH ×4 (07:00→22:00)
[2020-09-28 07:12] LABS: Bilirubin, Total 0.6 mg/dL (0.2-1.0); Total Protein 6.6 g/dL (6.4-8.2)
[2020-09-28] MEDS: ENOXAPARIN SOD 40 MG/0.4 ML SYRINGE SC SCH ×2 (10:00→22:00)
[2020-09-28] MEDS: AZITHROMYCIN 500MG/ 250ML 250 ML IV SCH (10:00)
[2020-09-28] MEDS: ZINC SULFATE 220mg CAP or TAB PO SCH (10:00)
[2020-09-28] MEDS: ASCORBIC ACID 500 MG TAB PO SCH ×2 (10:00→22:00)
[2020-09-28] MEDS: CHOLECALCIFEROL (VITD3) 2,000 UNIT CAP/TAB PO SCH (10:00)
[2020-09-28] MEDS: cefTRIAXone 1GM/50ML D5W 50 ML IV SCH (10:00)
[2020-09-28] MEDS: DexAMETHasone SOD PHOS 10MG/1ML VIAL INJ IV SCH (10:00)
[2020-09-28] MEDS: REMDESIVIR 100 MG in SODIUM CHL 0.9% 250 ML IV SCH (15:00)
[2020-09-28 19:36] VITALS: BP 133/69
[2020-09-28 23:56] VITALS: BP 130/70
[2020-09-29 02:35] VITALS: BP 124/65
[2020-09-29 05:58] VITALS: BP 124/65
[2020-09-29] MEDS: InsuLIN REG 1unit/0.01ml Soln (100units/ml) SC SCH ×4 (06:35→22:24)
[2020-09-29] MEDS: ACCU-CHEK COMFORT CURVE STRIP VI SCH ×4 (06:35→22:14)
[2020-09-29 07:22] LABS: Basophils # (auto) 0 10 ^3/uL (0-0.2); Basophils % (auto) 0.2 % (0.0-2.0); Eosinophils # (auto) 0 10 ^3/uL (0-0.8); Hematocrit 35.2 % (36.0-46.0); Hemoglobin 12.4 g/dL (12.2-16.2); Lymphocytes # (auto) 0.7 10 ^3/uL (0.4-5.4); Mean Corpuscular Hgb Conc. 35.1 g/dL (32.0-36.0); Mean Corpuscular Volume 91.2 fL (80.0-100.0); Monocytes # (auto) 0.4 10 ^3/uL (0-1.3); Monocytes % (auto) 5.2 % (0.0-12.0); Neutrophils # (auto) 7.1 10 ^3/uL (1.6-8.6); Neutrophils % (auto) 86.6 % (37.0-80.0); Nucleated Red Blood Cells % 0.1 %; Red Blood Cells 3.86 10^6/uL (4.0-5.20); Red Cell Distribution Width 14.7 % (11.8-14.3); White Blood Cell 8.2 10^3/uL (4.4-10.8)
[2020-09-29 07:41] LABS: Potassium 3.7 mmol/L (3.5-5.1)
[2020-09-29 08:10] LABS: Albumin 2.1 g/dL (3.4-5.0); BUN/Creatinine Ratio 30.5; Bilirubin, Total 0.7 mg/dL (0.2-1.0); CRP High Sensitivity 6.16 mg/dL (< 0.3); Total Protein 6.6 g/dL (6.4-8.2)
[2020-09-29] MEDS: CHOLECALCIFEROL (VITD3) 2,000 UNIT CAP/TAB PO SCH (12:00)
[2020-09-29] MEDS: ASCORBIC ACID 500 MG TAB PO SCH ×2 (12:00→22:15)
[2020-09-29] MEDS: ZINC SULFATE 220mg CAP or TAB PO SCH (12:00)
[2020-09-29] MEDS: ENOXAPARIN SOD 40 MG/0.4 ML SYRINGE SC SCH ×2 (12:00→22:14)
[2020-09-29] MEDS: DexAMETHasone SOD PHOS 10MG/1ML VIAL INJ IV SCH (12:30)
[2020-09-29] MEDS: AZITHROMYCIN 500MG/ 250ML 250 ML IV SCH (12:30)
[2020-09-29] MEDS: cefTRIAXone 1GM/50ML D5W 50 ML IV SCH (12:30)
[2020-09-29] MEDS: REMDESIVIR 100 MG in SODIUM CHL 0.9% 250 ML IV SCH (22:15)
[2020-09-29 23:30] VITALS: BP 129/75
[2020-09-30] MEDS: InsuLIN REG 1unit/0.01ml Soln (100units/ml) SC SCH ×4 (07:00→22:12)
[2020-09-30] MEDS: ACCU-CHEK COMFORT CURVE STRIP VI SCH ×4 (07:21→22:10)
[2020-09-30 07:38] LABS: Albumin 2.1 g/dL (3.4-5.0); BUN/Creatinine Ratio 30.8; Calcium 7.9 mg/dL (8.5-10.1); Potassium 3.7 mmol/L (3.5-5.1)
[2020-09-30 07:48] LABS: Bilirubin, Total 0.6 mg/dL (0.2-1.0); Total Protein 6.5 g/dL (6.4-8.2)
[2020-09-30] MEDS: ASCORBIC ACID 500 MG TAB PO SCH ×2 (09:13→22:13)
[2020-09-30] MEDS: ENOXAPARIN SOD 40 MG/0.4 ML SYRINGE SC SCH ×2 (09:13→22:11)
[2020-09-30] MEDS: DexAMETHasone SOD PHOS 10MG/1ML VIAL INJ IV SCH (09:13)
[2020-09-30] MEDS: ZINC SULFATE 220mg CAP or TAB PO SCH (09:13)
[2020-09-30] MEDS: cefTRIAXone 1GM/50ML D5W 50 ML IV SCH (09:13)
[2020-09-30] MEDS: CHOLECALCIFEROL (VITD3) 2,000 UNIT CAP/TAB PO SCH (09:13)
[2020-09-30] MEDS: AZITHROMYCIN 500MG/ 250ML 250 ML IV SCH (09:28)
[2020-09-30 10:40] VITALS: BP 128/76
[2020-09-30 13:50] VITALS: BP 128/71
[2020-09-30] MEDS: REMDESIVIR 100 MG in SODIUM CHL 0.9% 250 ML IV SCH (15:04)
[2020-09-30 19:13] VITALS: BP 126/73
[2020-09-30] MEDS: MORPHINE SULFATE INJECTION 2 MG/ML SYRG IV PRN (21:09)
[2020-09-30 21:30] VITALS: BP 129/70
[2020-09-30] MEDS: SODIUM CHLORIDE 0.9% 1,000 ML IV SCH (23:29)
[2020-10-01 02:48] VITALS: BP 118/69
[2020-10-01 06:04] LABS: Basophils # (auto) 0 10 ^3/uL (0-0.2); Eosinophils # (auto) 0 10 ^3/uL (0-0.8); Eosinophils % (auto) 0.1 % (0.0-7.0); Hematocrit 33.4 % (36.0-46.0); Hemoglobin 11.5 g/dL (12.2-16.2); Lymphocytes # (auto) 0.7 10 ^3/uL (0.4-5.4); Mean Corpuscular Hemoglobin 31.8 pg (28.0-32.0); Mean Corpuscular Hgb Conc. 34.5 g/dL (32.0-36.0); Mean Corpuscular Volume 92.2 fL (80.0-100.0); Monocytes # (auto) 0.2 10 ^3/uL (0-1.3); Monocytes % (auto) 3.4 % (0.0-12.0); Neutrophils % (auto) 86.5 % (37.0-80.0); Red Blood Cells 3.62 10^6/uL (4.0-5.20); Red Cell Distribution Width 14.9 % (11.8-14.3); White Blood Cell 6.9 10^3/uL (4.4-10.8)
[2020-10-01 06:20] LABS: Potassium 3.7 mmol/L (3.5-5.1)
[2020-10-01 06:26] LABS: Albumin 1.9 g/dL (3.4-5.0); BUN/Creatinine Ratio 38.3; Bilirubin, Total 0.7 mg/dL (0.2-1.0); Calcium 7.9 mg/dL (8.5-10.1); Total Protein 6.4 g/dL (6.4-8.2)
[2020-10-01 07:05] VITALS: BP 122/74
[2020-10-01] MEDS: CHOLECALCIFEROL (VITD3) 2,000 UNIT CAP/TAB PO SCH (10:30)
[2020-10-01] MEDS: ASCORBIC ACID 500 MG TAB PO SCH ×2 (10:30→21:31)
[2020-10-01 10:38] VITALS: BP 123/74
[2020-10-01] MEDS: InsuLIN REG 1unit/0.01ml Soln (100units/ml) SC SCH ×4 (11:10→21:28)
[2020-10-01] MEDS: ACCU-CHEK COMFORT CURVE STRIP VI SCH ×4 (11:10→21:29)
[2020-10-01] MEDS: INSULIN LANTUS (GLARGINE) 1 /0.01ml (100units/ml) SC SCH (11:11)
[2020-10-01] MEDS: ZINC SULFATE 220mg CAP or TAB PO SCH (12:00)
[2020-10-01] MEDS: ENOXAPARIN SOD 40 MG/0.4 ML SYRINGE SC SCH ×2 (12:00→21:31)
[2020-10-01] MEDS: cefTRIAXone 1GM/50ML D5W 50 ML IV SCH (12:00)
[2020-10-01] MEDS: AZITHROMYCIN 500MG/ 250ML 250 ML IV SCH (12:00)
[2020-10-01] MEDS: DexAMETHasone SOD PHOS 10MG/1ML VIAL INJ IV SCH (12:00)
[2020-10-01] MEDS: SODIUM CHLORIDE 0.9% 1,000 ML IV SCH (13:50)
[2020-10-01] MEDS ORDERED: MORPHINE SULFATE INJECTION 2 MG/ML SYRG IV PRN (17:00)
[2020-10-01 18:00] VITALS: BP 106/66
[2020-10-01] MEDS: ONDANSETRON HCL 4 MG/2 ML VIAL IV PRN (19:00)
[2020-10-01] MEDS: MORPHINE SULFATE INJECTION 2 MG/ML SYRG IV PRN (19:00)
[2020-10-01 22:00] VITALS: BP 117/63
[2020-10-02 02:00] VITALS: BP 122/62
[2020-10-02 05:50] VITALS: BP 99/62
[2020-10-02] MEDS: InsuLIN REG 1unit/0.01ml Soln (100units/ml) SC SCH ×4 (06:14→21:06)
[2020-10-02] MEDS: ACCU-CHEK COMFORT CURVE STRIP VI SCH ×4 (06:16→21:05)
[2020-10-02] MEDS: PANTOPRAZOLE 40 MG/10 ML VIAL INJ IV SCH (10:00)
[2020-10-02] MEDS ORDERED: ENOXAPARIN SOD 40 MG/0.4 ML SYRINGE SC SCH (10:00)
[2020-10-02] MEDS: DexAMETHasone SOD PHOS 10MG/1ML VIAL INJ IV SCH (10:20)
[2020-10-02] MEDS: ZINC SULFATE 220mg CAP or TAB PO SCH (10:20)
[2020-10-02] MEDS: CHOLECALCIFEROL (VITD3) 2,000 UNIT CAP/TAB PO SCH (10:21)
[2020-10-02] MEDS: cefTRIAXone 1GM/50ML D5W 50 ML IV SCH (10:21)
[2020-10-02] MEDS: ASCORBIC ACID 500 MG TAB PO SCH ×2 (10:21→21:04)
[2020-10-02] MEDS ORDERED: ENOXAPARIN SOD 30 MG/0.3 ML SYRINGE SC ONE (11:00)
[2020-10-02 12:39] LABS: Basophils # (auto) 0 10 ^3/uL (0-0.2); Basophils % (auto) 0.1 % (0.0-2.0); Eosinophils # (auto) 0 10 ^3/uL (0-0.8); Eosinophils % (auto) 0.3 % (0.0-7.0); Hematocrit 33.8 % (36.0-46.0); Hemoglobin 11.3 g/dL (12.2-16.2); Lymphocytes # (auto) 0.5 10 ^3/uL (0.4-5.4); Lymphocytes % (auto) 5.6 % (10.0-50.0); Mean Corpuscular Hemoglobin 31.5 pg (28.0-32.0); Mean Corpuscular Hgb Conc. 33.6 g/dL (32.0-36.0); Monocytes # (auto) 0.2 10 ^3/uL (0-1.3); Monocytes % (auto) 2.1 % (0.0-12.0); Neutrophils # (auto) 7.6 10 ^3/uL (1.6-8.6); Neutrophils % (auto) 91.9 % (37.0-80.0); Red Blood Cells 3.59 10^6/uL (4.0-5.20); Red Cell Distribution Width 14.8 % (11.8-14.3); White Blood Cell 8.2 10^3/uL (4.4-10.8)
[2020-10-02 13:03] LABS: Calcium 7.8 mg/dL (8.5-10.1)
[2020-10-02 13:09] LABS: Albumin 1.8 g/dL (3.4-5.0); BUN/Creatinine Ratio 21.2; Bilirubin, Total 1.4 mg/dL (0.2-1.0); Total Protein 6.3 g/dL (6.4-8.2)
[2020-10-02] MEDS: AZITHROMYCIN 500MG/ 250ML 250 ML IV SCH (13:50)
[2020-10-02] MEDS: INSULIN LANTUS (GLARGINE) 1 /0.01ml (100units/ml) SC SCH (14:00)
[2020-10-02] MEDS ORDERED: ANAS1TAB7 PO (14:50)
[2020-10-02] MEDS ORDERED: POTA10TA51 PO (14:50)
[2020-10-02] MEDS ORDERED: GABA300C10 PO (14:50)
[2020-10-02] MEDS ORDERED: MACI1TAB2 PO (14:50)
[2020-10-02] MEDS ORDERED: ASCO500T11 PO (16:04)
[2020-10-02] MEDS ORDERED: CHOL1CAP47 PO (16:04)
[2020-10-02] MEDS ORDERED: DEXA6TAB6 PO (16:04)
[2020-10-02] MEDS ORDERED: ZINCCAP PO (16:04)
[2020-10-02] MEDS: MORPHINE SULFATE INJECTION 2 MG/ML SYRG IV PRN (19:35)
[2020-10-02] MEDS: ENOXAPARIN SOD 80 MG/0.8ML SYRINGE SC SCH (21:04)
[2020-10-02] MEDS: ATORVASTATIN 20 MG TAB PO SCH (21:06)
[2020-10-02 22:19] VITALS: BP 104/55
[2020-10-03 02:17] VITALS: BP 104/55
[2020-10-03] MEDS: ACCU-CHEK COMFORT CURVE STRIP VI SCH ×4 (06:00→21:23)
[2020-10-03] MEDS: InsuLIN REG 1unit/0.01ml Soln (100units/ml) SC SCH ×4 (06:01→21:20)
[2020-10-03 06:32] LABS: Basophils # (auto) 0 10 ^3/uL (0-0.2); Basophils % (auto) 0.1 % (0.0-2.0); Eosinophils # (auto) 0 10 ^3/uL (0-0.8); Eosinophils % (auto) 0.1 % (0.0-7.0); Hemoglobin 10.8 g/dL (12.2-16.2); Lymphocytes # (auto) 0.4 10 ^3/uL (0.4-5.4); Lymphocytes % (auto) 5.4 % (10.0-50.0); Mean Corpuscular Hemoglobin 31.4 pg (28.0-32.0); Mean Corpuscular Hgb Conc. 33.7 g/dL (32.0-36.0); Mean Corpuscular Volume 93.3 fL (80.0-100.0); Monocytes # (auto) 0.2 10 ^3/uL (0-1.3); Monocytes % (auto) 3.7 % (0.0-12.0); Neutrophils % (auto) 90.7 % (37.0-80.0); Red Blood Cells 3.43 10^6/uL (4.0-5.20); Red Cell Distribution Width 14.7 % (11.8-14.3); White Blood Cell 6.6 10^3/uL (4.4-10.8)
[2020-10-03 07:07] LABS: Potassium 4.1 mmol/L (3.5-5.1)
[2020-10-03 07:10] VITALS: BP 126/65
[2020-10-03 07:13] LABS: Albumin 1.8 g/dL (3.4-5.0); BUN/Creatinine Ratio 33.3
[2020-10-03 07:16] LABS: Bilirubin, Total 0.9 mg/dL (0.2-1.0); Total Protein 6.1 g/dL (6.4-8.2)
[2020-10-03 07:29] LABS: Calcium 8.1 mg/dL (8.5-10.1)
[2020-10-03] MEDS: cefTRIAXone 1GM/50ML D5W 50 ML IV SCH (08:57)
[2020-10-03] MEDS: ZINC SULFATE 220mg CAP or TAB PO SCH (09:03)
[2020-10-03] MEDS: ASCORBIC ACID 500 MG TAB PO SCH ×2 (09:03→21:20)
[2020-10-03] MEDS: PANTOPRAZOLE 40 MG/10 ML VIAL INJ IV SCH (09:06)
[2020-10-03] MEDS: CHOLECALCIFEROL (VITD3) 2,000 UNIT CAP/TAB PO SCH (09:06)
[2020-10-03] MEDS: DexAMETHasone SOD PHOS 10MG/1ML VIAL INJ IV SCH (09:07)
[2020-10-03] MEDS: ENOXAPARIN SOD 80 MG/0.8ML SYRINGE SC SCH ×2 (10:00→20:45)
[2020-10-03] MEDS: AZITHROMYCIN 500MG/ 250ML 250 ML IV SCH (10:38)
[2020-10-03] MEDS: INSULIN LANTUS (GLARGINE) 1 /0.01ml (100units/ml) SC SCH (10:53)
[2020-10-03 14:14] VITALS: BP 108/45
[2020-10-03] MEDS ORDERED: FUROSEMIDE 40 MG/4 ML VIAL IV ONE (15:45)
[2020-10-03 18:45] VITALS: BP 128/76
[2020-10-03] MEDS: MORPHINE SULFATE INJECTION 2 MG/ML SYRG IV PRN ×2 (20:44→21:24)
[2020-10-03] MEDS: ATORVASTATIN 20 MG TAB PO SCH (21:20)
[2020-10-03 22:53] VITALS: BP 111/78
[2020-10-04 02:08] VITALS: BP 123/84
[2020-10-04] MEDS: InsuLIN REG 1unit/0.01ml Soln (100units/ml) SC SCH ×4 (06:12→21:26)
[2020-10-04] MEDS: ACCU-CHEK COMFORT CURVE STRIP VI SCH ×4 (06:13→21:26)
[2020-10-04 06:55] VITALS: BP 123/84
[2020-10-04] MEDS: ONDANSETRON HCL 4 MG/2 ML VIAL IV PRN ×2 (08:37→21:21)
[2020-10-04] MEDS: PANTOPRAZOLE 40 MG/10 ML VIAL INJ IV SCH (10:00)
[2020-10-04] MEDS: cefTRIAXone 1GM/50ML D5W 50 ML IV SCH (10:07)
[2020-10-04] MEDS: CHOLECALCIFEROL (VITD3) 2,000 UNIT CAP/TAB PO SCH (10:08)
[2020-10-04] MEDS: DexAMETHasone SOD PHOS 10MG/1ML VIAL INJ IV SCH (10:08)
[2020-10-04] MEDS: ZINC SULFATE 220mg CAP or TAB PO SCH (10:08)
[2020-10-04] MEDS: AZITHROMYCIN 500MG/ 250ML 250 ML IV SCH (10:08)
[2020-10-04] MEDS: ASCORBIC ACID 500 MG TAB PO SCH ×2 (10:08→21:24)
[2020-10-04] MEDS: ENOXAPARIN SOD 80 MG/0.8ML SYRINGE SC SCH ×2 (10:09→21:25)
[2020-10-04] MEDS: INSULIN LANTUS (GLARGINE) 1 /0.01ml (100units/ml) SC SCH (10:11)
[2020-10-04 11:13] VITALS: BP 130/71
[2020-10-04 14:30] VITALS: BP 116/63
[2020-10-04] MEDS ORDERED: LORazepam 2MG/ML-1ML VIAL IV PRN (16:00)
[2020-10-04 18:18] VITALS: BP 121/68
[2020-10-04] MEDS: MORPHINE SULFATE INJECTION 2 MG/ML SYRG IV PRN (21:21)
[2020-10-04] MEDS: ATORVASTATIN 20 MG TAB PO SCH (21:24)
[2020-10-05 01:36] VITALS: BP 120/67
[2020-10-05] MEDS: MORPHINE SULFATE INJECTION 2 MG/ML SYRG IV PRN ×2 (04:22→17:49)
[2020-10-05 06:00] VITALS: BP 120/67
[2020-10-05] MEDS: InsuLIN REG 1unit/0.01ml Soln (100units/ml) SC SCH ×2 (07:00→11:30)
[2020-10-05] MEDS: ACCU-CHEK COMFORT CURVE STRIP VI SCH ×2 (07:21→11:33)
[2020-10-05 10:00] VITALS: BP 118/65
[2020-10-05] MEDS: DexAMETHasone SOD PHOS 10MG/1ML VIAL INJ IV SCH (11:27)
[2020-10-05] MEDS: cefTRIAXone 1GM/50ML D5W 50 ML IV SCH (11:27)
[2020-10-05] MEDS: ENOXAPARIN SOD 80 MG/0.8ML SYRINGE SC SCH (11:27)
[2020-10-05] MEDS: ASCORBIC ACID 500 MG TAB PO SCH (11:27)
[2020-10-05] MEDS: ZINC SULFATE 220mg CAP or TAB PO SCH (11:27)
[2020-10-05] MEDS: AZITHROMYCIN 500MG/ 250ML 250 ML IV SCH (11:27)
[2020-10-05] MEDS: CHOLECALCIFEROL (VITD3) 2,000 UNIT CAP/TAB PO SCH (11:27)
[2020-10-05] MEDS: INSULIN LANTUS (GLARGINE) 1 /0.01ml (100units/ml) SC SCH (11:28)
[2020-10-05] MEDS: PANTOPRAZOLE 40 MG/10 ML VIAL INJ IV SCH (11:29)
[2020-10-05 18:52] VITALS: BP 123/69
[2020-10-05 22:00] VITALS: BP 112/58
[2020-10-18] MEDS ORDERED: FLUC150T2 PO (19:03)
== END 2020-10-05 22:20 | disposition hospice, home (50) | DRG 137 ==
LOC: ER 12:04 → EDBD 12:04 → EDUNIT# 12:04 → TELE 20:45
PROVIDERS: ADMIT Hospitalist; ATTEND Hospitalist
PROC: XW033E5 Introduction of Remdesivir Anti-infective into Peripheral Vein, Percutaneous Approach, New Technology Group 5 (ICD-10-PCS; principal; 2020-09-26)
PROC: 5A09357 Assistance with Respiratory Ventilation, Less than 24 Consecutive Hours, Continuous Positive Airway Pressure (ICD-10-PCS; 2020-09-26)
PROC: 5A09357 Assistance with Respiratory Ventilation, Less than 24 Consecutive Hours, Continuous Positive Airway Pressure (ICD-10-PCS; 2020-09-27)
PROC: 5A09357 Assistance with Respiratory Ventilation, Less than 24 Consecutive Hours, Continuous Positive Airway Pressure (ICD-10-PCS; 2020-09-28)
PROC: 5A09357 Assistance with Respiratory Ventilation, Less than 24 Consecutive Hours, Continuous Positive Airway Pressure (ICD-10-PCS; 2020-09-30)
PROC: 5A09357 Assistance with Respiratory Ventilation, Less than 24 Consecutive Hours, Continuous Positive Airway Pressure (ICD-10-PCS; 2020-10-01)
PROC: 5A09357 Assistance with Respiratory Ventilation, Less than 24 Consecutive Hours, Continuous Positive Airway Pressure (ICD-10-PCS; 2020-10-03)
PROC: 5A09357 Assistance with Respiratory Ventilation, Less than 24 Consecutive Hours, Continuous Positive Airway Pressure (ICD-10-PCS; 2020-10-05)
DX: U07.1 COVID-19 (principal); J96.21 Acute and chronic respiratory failure with hypoxia; J12.82 Pneumonia due to coronavirus disease 2019; I50.43 Acute on chronic combined systolic (congestive) and diastolic (congestive) heart failure; E11.65 Type 2 diabetes mellitus with hyperglycemia; I48.91 Unspecified atrial fibrillation; I27.20 Pulmonary hypertension, unspecified; I11.0 Hypertensive heart disease with heart failure; E11.42 Type 2 diabetes mellitus with diabetic polyneuropathy; D68.59 Other primary thrombophilia; E78.5 Hyperlipidemia, unspecified; C50.912 Malignant neoplasm of unspecified site of left female breast; M19.90 Unspecified osteoarthritis, unspecified site; E78.00 Pure hypercholesterolemia, unspecified; Z79.899 Other long term (current) drug therapy; Z82.49 Family history of ischemic heart disease and other diseases of the circulatory system; Z83.3 Family history of diabetes mellitus; Z90.710 Acquired absence of both cervix and uterus; Z95.0 Presence of cardiac pacemaker
CPT/HCPCS: 36415; 36600; 71045; 80048; 80053; 82728; 82805; 82962; 83036; 83605; 83880; 84484; 85025; 85379; 85610; 85730; 86141; 87040; 87426; 93005; 93970; 94003; 94640; 94660; 96365; 96367; 96375; G0378; J0696; J1100; J1815; J2405; J3490

== ENCOUNTER 2020-10-18 13:15 | Inpatient (IN) | payer MEDICAID ==
[~2020-10-18] VITALS: Ht 157.5 cm; Wt 72.5 kg
[~2020-10-18 13:15] MED LIST changes: +ANAS1TAB7 PO; +ASCO500T11 PO; +CHOL1CAP47 PO; +DEXA6TAB6 PO; +GABA300C10 PO; +MACI1TAB2 PO; -METH750T22 PO; +POTA10TA51 PO; -POTA8TAB2 PO; -TRAM50TA2 PO; +ZINCCAP PO; -ZOLP5TAB5 PO
[2020-10-18] MEDS ORDERED: ETOMIDATE (2MG/ML) 20ML VIAL IV ONE ×2 (13:16→14:45)
[2020-10-18] MEDS ORDERED: SUCCINYLCHOLINE CHLORIDE 20 MG/ML 10ML VIAL IV ONE ×2 (13:16→14:45)
[2020-10-18] MEDS ORDERED: MIDAZOLAM DRIP 50 mg/50mL 50 ML IV ONE (13:17)
[2020-10-18] MEDS: MIDAZOLAM DRIP 50 mg/50mL 50 ML IV SCH (13:24)
[2020-10-18] MEDS ORDERED: NOREPINEPHRINE 8 MG/250ML KIT 250 ML IV ONE (13:43)
[2020-10-18] MEDS: NOREPINEPHRINE 8 MG/250ML KIT 250 ML IV SCH (14:25)
[2020-10-18 14:28] LABS: Basophils # (auto) 0 10 ^3/uL (0-0.2); Basophils % (auto) 0.6 % (0.0-2.0); Eosinophils # (auto) 0.1 10 ^3/uL (0-0.8); Eosinophils % (auto) 2.1 % (0.0-7.0); Hematocrit 29.3 % (36.0-46.0); Hemoglobin 9.9 g/dL (12.2-16.2); Lymphocytes # (auto) 0.8 10 ^3/uL (0.4-5.4); Lymphocytes % (auto) 13.8 % (10.0-50.0); Mean Corpuscular Hemoglobin 32.5 pg (28.0-32.0); Mean Corpuscular Hgb Conc. 33.7 g/dL (32.0-36.0); Mean Corpuscular Volume 96.4 fL (80.0-100.0); Monocytes # (auto) 0.4 10 ^3/uL (0-1.3); Monocytes % (auto) 6.9 % (0.0-12.0); Neutrophils # (auto) 4.5 10 ^3/uL (1.6-8.6); Neutrophils % (auto) 76.6 % (37.0-80.0); Nucleated Red Blood Cells % 0.1 %; Platelet Count (auto) 190 10^3/uL (140-450); Red Blood Cells 3.04 10^6/uL (4.0-5.20); Red Cell Distribution Width 14.3 % (11.8-14.3); White Blood Cell 5.9 10^3/uL (4.4-10.8)
[2020-10-18 14:29] VITALS: BP 85/46
[2020-10-18 14:57] LABS: Albumin 1.8 g/dL (3.4-5.0); Anion Gap 5 (5-15); Blood Urea Nitrogen 18 mg/dL (7-18); Calcium 7.4 mg/dL (8.5-10.1); Carbon Dioxide 31 mmol/L (21-32); Chloride 98 mmol/L (98-107); Glucose 221 mg/dL (74-106); Magnesium 1.9 mg/dL (1.6-2.6); Potassium 4.6 mmol/L (3.5-5.1); Sodium 134 mmol/L (136-145)
[2020-10-18 15:05] LABS: Alanine Aminotransferase 18 U/L (13-56); Alkaline Phosphatase 91 U/L (45-117); Aspartate Aminotransferase 41 U/L (15-37); BUN/Creatinine Ratio 27.7; Bilirubin, Total 0.6 mg/dL (0.2-1.0); GFR African American 112 mL/min; GFR Non-African American 93 mL/min; Lactate Dehydrogenase 565 U/L (84-246); Total Protein 6.1 g/dL (6.4-8.2)
[2020-10-18 15:06] LABS: CRP High Sensitivity > 19.0 mg/dL (< 0.3)
[2020-10-18] MEDS ORDERED: PROPOFOL 100 ML IV ONE (15:09)
[2020-10-18 15:13] LABS: INR 1.41 (0.9-1.15)
[2020-10-18] MEDS: PROPOFOL 100 ML IV SCH (15:23)
[2020-10-18] MEDS ORDERED: MORPHINE SULF INJ 2 MG/ML SYRINGE 1ML IV PRN (16:15)
[2020-10-18] MEDS ORDERED: PIPERACILLIN-TAZOB 3.375GM 100 ML IV ONE (16:15)
[2020-10-18] MEDS ORDERED: AZITHROMYCIN 500MG/ 250ML 250 ML IV ONE (16:15)
[2020-10-18] MEDS ORDERED: NITROGLYCERIN 0.4 MG SL TAB SL PRN (16:15)
[2020-10-18] MEDS ORDERED: VANCOMYCIN PER PHARMACY 0 MG IV SCH (16:15)
[2020-10-18 16:58] LABS: Urine Bacteria NONE SEEN /hpf (None Seen); Urine Blood Negative /uL (Negative); Urine Hyaline Cast FEW /lpf (0 - 2); Urine Mucus FEW (None Seen); Urine WBC 3 /hpf (0 - 5)
[2020-10-18 18:10] VITALS: BP 96/52
[2020-10-18] MEDS: ENOXAPARIN SOD 40 MG/0.4 ML SYRINGE SC SCH (19:00)
[2020-10-18] MEDS: FUROSEMIDE 40 MG/4 ML VIAL IV SCH (19:01)
[2020-10-18] MEDS ORDERED: POTA8TAB2 PO (19:01)
[2020-10-18] MEDS ORDERED: ACE3T PO (19:02)
[2020-10-18] MEDS ORDERED: NYS5LQ MT (19:03)
[2020-10-18] MEDS ORDERED: FLUC150T41 PO (19:03)
[2020-10-18] MEDS ORDERED: DICL1GEL50 TD (19:05)
[2020-10-18] MEDS ORDERED: DILT-29 PO (19:05)
[2020-10-18] MEDS ORDERED: IPRAAER6 IN (19:05)
[2020-10-18] MEDS ORDERED: VANCOMYCIN 1GM/250ML 250 ML IV ONE (20:00)
[2020-10-18 22:05] VITALS: BP 96/52
[2020-10-19] VITALS (10 sets, daily range): BP systolic 85–124; BP diastolic 43–63
[2020-10-19] MEDS: PIPERACILLIN-TAZOB 3.375GM 100 ML IV SCH ×4 (00:01→18:00)
[2020-10-19] MEDS: FUROSEMIDE 40 MG/4 ML VIAL IV SCH ×2 (05:43→19:00)
[2020-10-19 06:00] LABS: Basophils # (auto) 0 10 ^3/uL (0-0.2); Basophils % (auto) 0.3 % (0.0-2.0); Eosinophils # (auto) 0.2 10 ^3/uL (0-0.8); Hematocrit 28.6 % (36.0-46.0); Hemoglobin 9.9 g/dL (12.2-16.2); Lymphocytes # (auto) 0.7 10 ^3/uL (0.4-5.4); Lymphocytes % (auto) 11.8 % (10.0-50.0); Mean Corpuscular Hgb Conc. 34.5 g/dL (32.0-36.0); Mean Corpuscular Volume 95.8 fL (80.0-100.0); Monocytes # (auto) 0.4 10 ^3/uL (0-1.3); Neutrophils # (auto) 4.7 10 ^3/uL (1.6-8.6); Neutrophils % (auto) 77.9 % (37.0-80.0); Platelet Count (auto) 201 10^3/uL (140-450); Red Blood Cells 2.99 10^6/uL (4.0-5.20); Red Cell Distribution Width 14.2 % (11.8-14.3); White Blood Cell 6.1 10^3/uL (4.4-10.8)
[2020-10-19 06:25] LABS: Potassium 3.6 mmol/L (3.5-5.1)
[2020-10-19 06:33] LABS: Albumin 1.6 g/dL (3.4-5.0); Bilirubin, Total 0.5 mg/dL (0.2-1.0); Calcium 7.2 mg/dL (8.5-10.1); Magnesium 1.7 mg/dL (1.6-2.6); Total Protein 6.2 g/dL (6.4-8.2)
[2020-10-19] MEDS: ENOXAPARIN SOD 40 MG/0.4 ML SYRINGE SC SCH (08:19)
[2020-10-19] MEDS: MIDAZOLAM DRIP 50 mg/50mL 50 ML IV SCH (14:48)
[2020-10-19] MEDS: PROPOFOL 100 ML IV SCH (14:51)
[2020-10-19] MEDS: NOREPINEPHRINE 8 MG/250ML KIT 250 ML IV SCH (15:03)
[2020-10-19] MEDS: VANCOMYCIN 750mg/250ml 250 ML IV SCH (15:45)
[2020-10-19] MEDS ORDERED: ACETAMINOPHEN 650 mg PER 20.3 mL UD GT PRN (16:45)
[2020-10-20] VITALS (42 sets, daily range): BP systolic 105–134; BP diastolic 44–81
[2020-10-20] MEDS: VANCOMYCIN 750mg/250ml 250 ML IV SCH (03:00)
[2020-10-20 04:40] LABS: Basophils # (auto) 0 10 ^3/uL (0-0.2); Basophils % (auto) 0.4 % (0.0-2.0); Eosinophils # (auto) 0.1 10 ^3/uL (0-0.8); Eosinophils % (auto) 1.9 % (0.0-7.0); Hematocrit 29.9 % (36.0-46.0); Hemoglobin 10.2 g/dL (12.2-16.2); Lymphocytes # (auto) 0.8 10 ^3/uL (0.4-5.4); Lymphocytes % (auto) 12.5 % (10.0-50.0); Mean Corpuscular Hemoglobin 32.9 pg (28.0-32.0); Mean Corpuscular Hgb Conc. 34.3 g/dL (32.0-36.0); Mean Corpuscular Volume 95.9 fL (80.0-100.0); Monocytes # (auto) 0.4 10 ^3/uL (0-1.3); Monocytes % (auto) 7.1 % (0.0-12.0); Neutrophils # (auto) 4.9 10 ^3/uL (1.6-8.6); Neutrophils % (auto) 78.1 % (37.0-80.0); Nucleated Red Blood Cells % 0.1 %; Platelet Count (auto) 218 10^3/uL (140-450); Red Blood Cells 3.12 10^6/uL (4.0-5.20); Red Cell Distribution Width 13.7 % (11.8-14.3); White Blood Cell 6.3 10^3/uL (4.4-10.8)
[2020-10-20] MEDS: PIPERACILLIN-TAZOB 3.375GM 100 ML IV SCH ×4 (06:00→18:00)
[2020-10-20] MEDS: FUROSEMIDE 40 MG/4 ML VIAL IV SCH ×2 (06:00→18:00)
[2020-10-20 07:37] LABS: Albumin 1.6 g/dL (3.4-5.0); Calcium 7.4 mg/dL (8.5-10.1); Potassium 3.2 mmol/L (3.5-5.1)
[2020-10-20 07:42] LABS: BUN/Creatinine Ratio 16.7
[2020-10-20 07:43] LABS: Bilirubin, Total 0.6 mg/dL (0.2-1.0); Total Protein 6.3 g/dL (6.4-8.2)
[2020-10-20] MEDS: NOREPINEPHRINE 8 MG/250ML KIT 250 ML IV SCH (08:34)
[2020-10-20] MEDS: ENOXAPARIN SOD 40 MG/0.4 ML SYRINGE SC SCH ×2 (09:21→10:00)
[2020-10-20] MEDS ORDERED: REMDESIVIR PER PHARMACY 0 ML IV SCH (11:30)
[2020-10-20] MEDS ORDERED: DexAMETHasone SOD PHOS 10MG/1ML VIAL INJ IV ONE (11:30)
[2020-10-20] MEDS: MIDAZOLAM DRIP 50 mg/50mL 50 ML IV SCH (14:00)
[2020-10-20] MEDS ORDERED: REMDESIVIR 200 MG in NS 210ml LOADING DOSE ADULT IV ONE (15:00)
[2020-10-20] MEDS: PROPOFOL 100 ML IV SCH (15:15)
[2020-10-20] MEDS: FAMOTIDINE (10MG/ML) 2ML VL IV SCH (21:10)
[2020-10-21] VITALS (63 sets, daily range): BP systolic 97–136; BP diastolic 57–79
[2020-10-21 02:05] LABS: Basophils # (auto) 0 10 ^3/uL (0-0.2); Basophils % (auto) 0.2 % (0.0-2.0); Eosinophils # (auto) 0 10 ^3/uL (0-0.8); Hemoglobin 9.4 g/dL (12.2-16.2); Monocytes # (auto) 0.1 10 ^3/uL (0-1.3); Monocytes % (auto) 1.5 % (0.0-12.0); Neutrophils # (auto) 4.4 10 ^3/uL (1.6-8.6)
[2020-10-21 02:07] LABS: Hematocrit 25.7 % (36.0-46.0); Lymphocytes # (auto) 0.2 10 ^3/uL (0.4-5.4); Mean Corpuscular Hemoglobin 35.5 pg (28.0-32.0); Mean Corpuscular Hgb Conc. 36.5 g/dL (32.0-36.0); Mean Corpuscular Volume 97.1 fL (80.0-100.0); Neutrophils % (auto) 93.3 % (37.0-80.0); Platelet Count (auto) 217 10^3/uL (140-450); Red Blood Cells 2.65 10^6/uL (4.0-5.20); Red Cell Distribution Width 13.8 % (11.8-14.3); White Blood Cell 4.7 10^3/uL (4.4-10.8)
[2020-10-21 02:21] LABS: Albumin 1.6 g/dL (3.4-5.0); Calcium 7.5 mg/dL (8.5-10.1); Potassium 3.4 mmol/L (3.5-5.1)
[2020-10-21 02:23] LABS: BUN/Creatinine Ratio 18.5
[2020-10-21 02:26] LABS: Bilirubin, Total 0.3 mg/dL (0.2-1.0); Total Protein 6.4 g/dL (6.4-8.2)
[2020-10-21] MEDS: PIPERACILLIN-TAZOB 3.375GM 100 ML IV SCH ×5 (06:00→23:30)
[2020-10-21] MEDS: FUROSEMIDE 40 MG/4 ML VIAL IV SCH ×2 (06:00→18:00)
[2020-10-21] MEDS: DexAMETHasone SOD PHOS 10MG/1ML VIAL INJ IV SCH (10:45)
[2020-10-21] MEDS: FAMOTIDINE (10MG/ML) 2ML VL IV SCH ×2 (10:46→23:29)
[2020-10-21] MEDS: ENOXAPARIN SOD 40 MG/0.4 ML SYRINGE SC SCH (10:46)
[2020-10-21] MEDS: REMDESIVIR 100mg 100 MG in SODIUM CHL 0.9% 230 ML IV SCH (14:53)
[2020-10-21] MEDS: MIDAZOLAM DRIP 50 mg/50mL 50 ML IV SCH (16:30)
[2020-10-21] MEDS: PROPOFOL 100 ML IV SCH (18:32)
[2020-10-21] MEDS ORDERED: fentaNYL Drip 2500mCg/250mlNS 250 ML IV ONE (21:42)
[2020-10-22] VITALS (78 sets, daily range): BP systolic 84–173; BP diastolic 52–82
[2020-10-22] MEDS: PIPERACILLIN-TAZOB 3.375GM 100 ML IV SCH ×4 (06:12→23:23)
[2020-10-22] MEDS: FUROSEMIDE 40 MG/4 ML VIAL IV SCH ×2 (06:12→18:00)
[2020-10-22 07:02] LABS: Basophils # (auto) 0 10 ^3/uL (0-0.2); Basophils % (auto) 0.2 % (0.0-2.0); Eosinophils # (auto) 0 10 ^3/uL (0-0.8); Hemoglobin 8.9 g/dL (12.2-16.2); Lymphocytes # (auto) 0.4 10 ^3/uL (0.4-5.4); Lymphocytes % (auto) 8.7 % (10.0-50.0); Mean Corpuscular Hemoglobin 32.4 pg (28.0-32.0); Mean Corpuscular Hgb Conc. 34.1 g/dL (32.0-36.0); Mean Corpuscular Volume 94.9 fL (80.0-100.0); Monocytes # (auto) 0.3 10 ^3/uL (0-1.3); Neutrophils # (auto) 3.9 10 ^3/uL (1.6-8.6); Neutrophils % (auto) 85.1 % (37.0-80.0); Nucleated Red Blood Cells % 0.1 %; Platelet Count (auto) 225 10^3/uL (140-450); Red Blood Cells 2.74 10^6/uL (4.0-5.20); Red Cell Distribution Width 13.8 % (11.8-14.3); White Blood Cell 4.6 10^3/uL (4.4-10.8)
[2020-10-22 07:16] LABS: Albumin 1.5 g/dL (3.4-5.0); Calcium 7.6 mg/dL (8.5-10.1)
[2020-10-22 07:26] LABS: Bilirubin, Total 0.3 mg/dL (0.2-1.0); CRP High Sensitivity 15.7 mg/dL (< 0.3); Total Protein 6.1 g/dL (6.4-8.2)
[2020-10-22 07:50] LABS: Potassium 2.9 mmol/L (3.5-5.1)
[2020-10-22] MEDS: MIDAZOLAM DRIP 50 mg/50mL 50 ML IV SCH ×3 (09:32→19:18)
[2020-10-22] MEDS ORDERED: ENOXAPARIN SOD 30 MG/0.3 ML SYRINGE SC SCH (10:00)
[2020-10-22] MEDS: MAGNESIUM SULFATE 1GM/100ML 100 ML IV SCH ×2 (10:00→11:00)
[2020-10-22] MEDS: POTASSIUM CHL 20MEQ/100ML 100 ML IV SCH ×3 (10:24→13:30)
[2020-10-22] MEDS: DexAMETHasone SOD PHOS 10MG/1ML VIAL INJ IV SCH (10:25)
[2020-10-22] MEDS: FAMOTIDINE (10MG/ML) 2ML VL IV SCH ×2 (10:25→23:22)
[2020-10-22] MEDS: ENOXAPARIN SOD 40 MG/0.4 ML SYRINGE SC SCH (10:25)
[2020-10-22] MEDS: PROPOFOL 100 ML IV SCH (12:16)
[2020-10-22] MEDS: NOREPINEPHRINE 8 MG/250ML KIT 250 ML IV SCH (14:00)
[2020-10-22] MEDS: REMDESIVIR 100mg 100 MG in SODIUM CHL 0.9% 230 ML IV SCH (16:32)
[2020-10-23] VITALS (87 sets, daily range): BP systolic 73–179; BP diastolic 40–96
[2020-10-23] MEDS: PROPOFOL 100 ML IV SCH (01:21)
[2020-10-23 05:19] LABS: Hematocrit 27.1 % (36.0-46.0); Hemoglobin 9.2 g/dL (12.2-16.2); Mean Corpuscular Hemoglobin 32.8 pg (28.0-32.0); Mean Corpuscular Hgb Conc. 34.1 g/dL (32.0-36.0); Mean Corpuscular Volume 96.1 fL (80.0-100.0); Platelet Count (auto) 237 10^3/uL (140-450); Red Blood Cells 2.82 10^6/uL (4.0-5.20); Red Cell Distribution Width 13.4 % (11.8-14.3); White Blood Cell 4.7 10^3/uL (4.4-10.8)
[2020-10-23 05:35] LABS: Albumin 1.7 g/dL (3.4-5.0); Calcium 7.8 mg/dL (8.5-10.1); Magnesium 2.3 mg/dL (1.6-2.6); Potassium 3.6 mmol/L (3.5-5.1)
[2020-10-23 05:38] LABS: Bilirubin, Total 0.3 mg/dL (0.2-1.0); Total Protein 6.2 g/dL (6.4-8.2)
[2020-10-23] MEDS: FUROSEMIDE 40 MG/4 ML VIAL IV SCH ×2 (05:53→17:44)
[2020-10-23] MEDS: PIPERACILLIN-TAZOB 3.375GM 100 ML IV SCH ×3 (05:53→17:44)
[2020-10-23] MEDS: NOREPINEPHRINE 8 MG/250ML KIT 250 ML IV SCH ×2 (05:54→14:00)
[2020-10-23 06:45] LABS: BUN/Creatinine Ratio 28.7
[2020-10-23 06:49] LABS: Basophils % (manual) 0 (0.0-2.0); Blast Cells 0; Eosinophils % (manual) 0 (0-7); Metamyelocytes % 0; Promyelocytes % 0; Reactive Lymphocytes 0
[2020-10-23] MEDS ORDERED: DEXTROSE (50%) 50ML SYRG IV PRN (07:00)
[2020-10-23 09:00] LABS: Band Neutrophils % (manual) 8; Lymphocytes % (manual) 16 (10.0-50.0); Monocytes % (manual) 2 (0-12); Myelocytes % 1
[2020-10-23] MEDS: ENOXAPARIN SOD 40 MG/0.4 ML SYRINGE SC SCH (10:13)
[2020-10-23] MEDS: FAMOTIDINE (10MG/ML) 2ML VL IV SCH ×2 (10:13→21:36)
[2020-10-23] MEDS: DexAMETHasone SOD PHOS 10MG/1ML VIAL INJ IV SCH (10:13)
[2020-10-23] MEDS ORDERED: ACCU-CHEK COMFORT CURVE STRIP VI SCH (12:00)
[2020-10-23] MEDS ORDERED: InsuLIN REG 1unit/0.01ml Soln (100units/ml) SC SCH (12:00)
[2020-10-23] MEDS: REMDESIVIR 100mg 100 MG in SODIUM CHL 0.9% 230 ML IV SCH (15:30)
[2020-10-23] MEDS: POTASSIUM CHL 20MEQ/100ML 100 ML IV SCH ×2 (17:45→18:56)
[2020-10-23] MEDS: ACCU-CHEK COMFORT CURVE STRIP VI SCH (18:14)
[2020-10-23] MEDS: InsuLIN REG 1unit/0.01ml Soln (100units/ml) SC SCH (18:14)
[2020-10-24] VITALS (99 sets, daily range): BP systolic 76–161; BP diastolic 42–94
[2020-10-24] MEDS: ACCU-CHEK COMFORT CURVE STRIP VI SCH ×4 (00:36→18:00)
[2020-10-24] MEDS: InsuLIN REG 1unit/0.01ml Soln (100units/ml) SC SCH ×4 (00:37→18:00)
[2020-10-24] MEDS: PIPERACILLIN-TAZOB 3.375GM 100 ML IV SCH ×4 (00:39→18:00)
[2020-10-24 04:50] LABS: Albumin 1.8 g/dL (3.4-5.0); Calcium 8.3 mg/dL (8.5-10.1); Potassium 3.6 mmol/L (3.5-5.1)
[2020-10-24 04:53] LABS: BUN/Creatinine Ratio 34.8
[2020-10-24 04:56] LABS: Bilirubin, Total 0.4 mg/dL (0.2-1.0); Total Protein 6.4 g/dL (6.4-8.2)
[2020-10-24] MEDS: FUROSEMIDE 40 MG/4 ML VIAL IV SCH ×2 (06:51→18:00)
[2020-10-24] MEDS: FAMOTIDINE (10MG/ML) 2ML VL IV SCH ×2 (10:00→22:00)
[2020-10-24] MEDS: DexAMETHasone SOD PHOS 10MG/1ML VIAL INJ IV SCH (10:00)
[2020-10-24] MEDS: ENOXAPARIN SOD 40 MG/0.4 ML SYRINGE SC SCH (11:12)
[2020-10-24] MEDS: NOREPINEPHRINE 8 MG/250ML KIT 250 ML IV SCH (14:00)
[2020-10-24] MEDS: MIDAZOLAM DRIP 50 mg/50mL 50 ML IV SCH (14:00)
[2020-10-24] MEDS: PROPOFOL 100 ML IV SCH (15:15)
[2020-10-24] MEDS: REMDESIVIR 100mg 100 MG in SODIUM CHL 0.9% 230 ML IV SCH (18:33)
[2020-10-24] MEDS ORDERED: REMDESIVIR 100mg 100 MG in SODIUM CHL 0.9% 230 ML IV SCH (19:43)
[2020-10-25] VITALS (47 sets, daily range): BP systolic 95–119; BP diastolic 56–78
[2020-10-25] MEDS: InsuLIN REG 1unit/0.01ml Soln (100units/ml) SC SCH ×4 (00:24→18:00)
[2020-10-25] MEDS: PIPERACILLIN-TAZOB 3.375GM 100 ML IV SCH ×4 (00:25→20:00)
[2020-10-25] MEDS: ACCU-CHEK COMFORT CURVE STRIP VI SCH ×4 (00:25→18:00)
[2020-10-25 04:22] LABS: Basophils # (auto) 0 10 ^3/uL (0-0.2); Basophils % (auto) 0.2 % (0.0-2.0); Eosinophils # (auto) 0.7 10 ^3/uL (0-0.8); Eosinophils % (auto) 3.8 % (0.0-7.0); Hematocrit 27.8 % (36.0-46.0); Hemoglobin 8.9 g/dL (12.2-16.2); Lymphocytes % (auto) 11.6 % (10.0-50.0); Mean Corpuscular Hemoglobin 29.2 pg (28.0-32.0); Mean Corpuscular Hgb Conc. 32.2 g/dL (32.0-36.0); Mean Corpuscular Volume 90.9 fL (80.0-100.0); Monocytes # (auto) 1.8 10 ^3/uL (0-1.3); Monocytes % (auto) 10.3 % (0.0-12.0); Neutrophils # (auto) 12.8 10 ^3/uL (1.6-8.6); Neutrophils % (auto) 74.1 % (37.0-80.0); Nucleated Red Blood Cells % 0.1 %; Platelet Count (auto) 236 10^3/uL (140-450); Red Blood Cells 3.06 10^6/uL (4.0-5.20); Red Cell Distribution Width 16.8 % (11.8-14.3); White Blood Cell 17.2 10^3/uL (4.4-10.8)
[2020-10-25 04:47] LABS: INR 1.17 (0.9-1.15); Partial Thromboplastin Time 25.3 sec (23.0-31.2)
[2020-10-25 04:55] LABS: Albumin 1.3 g/dL (3.4-5.0); Calcium 7.8 mg/dL (8.5-10.1)
[2020-10-25 05:06] LABS: Bilirubin, Total 0.2 mg/dL (0.2-1.0); CRP High Sensitivity 5.83 mg/dL (< 0.3); Total Protein 4.8 g/dL (6.4-8.2)
[2020-10-25 05:32] LABS: BUN/Creatinine Ratio 24.1
[2020-10-25] MEDS: FUROSEMIDE 40 MG/4 ML VIAL IV SCH (06:14)
[2020-10-25] MEDS: DexAMETHasone SOD PHOS 10MG/1ML VIAL INJ IV SCH (10:00)
[2020-10-25] MEDS: ENOXAPARIN SOD 40 MG/0.4 ML SYRINGE SC SCH (10:00)
[2020-10-25] MEDS: FAMOTIDINE (10MG/ML) 2ML VL IV SCH ×2 (10:00→22:00)
[2020-10-25] MEDS: NOREPINEPHRINE 8 MG/250ML KIT 250 ML IV SCH (14:00)
[2020-10-25] MEDS: MIDAZOLAM DRIP 50 mg/50mL 50 ML IV SCH (14:00)
[2020-10-25] MEDS: PROPOFOL 100 ML IV SCH (15:15)
[2020-10-25] MEDS: SODIUM CHLORIDE 0.9% 1,000 ML IV SCH (16:15)
[2020-10-25] MEDS ORDERED: REMDESIVIR 100mg 100 MG in SODIUM CHL 0.9% 230 ML IV ONE (18:00)
[2020-10-26] VITALS (24 sets, daily range): BP systolic 101–141; BP diastolic 57–92
[2020-10-26] MEDS: InsuLIN REG 1unit/0.01ml Soln (100units/ml) SC SCH ×4 (00:30→18:00)
[2020-10-26] MEDS: PIPERACILLIN-TAZOB 3.375GM 100 ML IV SCH ×4 (01:17→18:00)
[2020-10-26 04:58] LABS: Basophils # (auto) 0 10 ^3/uL (0-0.2); Basophils % (auto) 0.2 % (0.0-2.0); Eosinophils # (auto) 0.1 10 ^3/uL (0-0.8); Eosinophils % (auto) 0.5 % (0.0-7.0); Hematocrit 29.8 % (36.0-46.0); Hemoglobin 10.1 g/dL (12.2-16.2); Lymphocytes # (auto) 1.2 10 ^3/uL (0.4-5.4); Lymphocytes % (auto) 12.5 % (10.0-50.0); Mean Corpuscular Hemoglobin 32.1 pg (28.0-32.0); Mean Corpuscular Hgb Conc. 33.7 g/dL (32.0-36.0); Mean Corpuscular Volume 95.3 fL (80.0-100.0); Monocytes # (auto) 0.5 10 ^3/uL (0-1.3); Monocytes % (auto) 5.7 % (0.0-12.0); Neutrophils # (auto) 7.7 10 ^3/uL (1.6-8.6); Neutrophils % (auto) 81.1 % (37.0-80.0); Nucleated Red Blood Cells % 0.5 %; Platelet Count (auto) 304 10^3/uL (140-450); Red Blood Cells 3.13 10^6/uL (4.0-5.20); Red Cell Distribution Width 14.3 % (11.8-14.3); White Blood Cell 9.5 10^3/uL (4.4-10.8)
[2020-10-26 05:18] LABS: Albumin 1.8 g/dL (3.4-5.0); Calcium 7.6 mg/dL (8.5-10.1)
[2020-10-26 05:20] LABS: BUN/Creatinine Ratio 42.7; Bilirubin, Total 0.6 mg/dL (0.2-1.0); Total Protein 6.4 g/dL (6.4-8.2)
[2020-10-26 06:03] LABS: Potassium 2.7 mmol/L (3.5-5.1)
[2020-10-26] MEDS: ACCU-CHEK COMFORT CURVE STRIP VI SCH ×4 (06:15→18:00)
[2020-10-26] MEDS: POTASSIUM CHL 20MEQ/100ML 100 ML IV SCH ×2 (08:00→10:30)
[2020-10-26] MEDS: FAMOTIDINE (10MG/ML) 2ML VL IV SCH ×2 (09:37→21:13)
[2020-10-26] MEDS: DexAMETHasone SOD PHOS 10MG/1ML VIAL INJ IV SCH (09:37)
[2020-10-26] MEDS: ENOXAPARIN SOD 40 MG/0.4 ML SYRINGE SC SCH (09:37)
[2020-10-26] MEDS ORDERED: POTASSIUM CHL 20MEQ/100ML 100 ML IV ONE (12:45)
[2020-10-26] MEDS: MIDAZOLAM DRIP 50 mg/50mL 50 ML IV SCH (14:00)
[2020-10-26] MEDS: NOREPINEPHRINE 8 MG/250ML KIT 250 ML IV SCH (14:00)
[2020-10-26] MEDS: SODIUM CHLORIDE 0.9% 1,000 ML IV SCH (14:14)
[2020-10-26] MEDS: PROPOFOL 100 ML IV SCH (15:15)
[2020-10-26] MEDS ORDERED: REMDESIVIR 100mg 100 MG in SODIUM CHL 0.9% 230 ML IV SCH (18:00)
[2020-10-27] VITALS (26 sets, daily range): BP systolic 104–144; BP diastolic 65–98
[2020-10-27] MEDS: ACCU-CHEK COMFORT CURVE STRIP VI SCH ×4 (00:13→18:02)
[2020-10-27] MEDS: PIPERACILLIN-TAZOB 3.375GM 100 ML IV SCH ×4 (00:25→18:02)
[2020-10-27] MEDS: InsuLIN REG 1unit/0.01ml Soln (100units/ml) SC SCH ×4 (00:26→18:00)
[2020-10-27 05:29] LABS: Basophils # (auto) 0 10 ^3/uL (0-0.2); Basophils % (auto) 0.2 % (0.0-2.0); Eosinophils # (auto) 0 10 ^3/uL (0-0.8); Eosinophils % (auto) 0.1 % (0.0-7.0); Hematocrit 30.3 % (36.0-46.0); Hemoglobin 10.1 g/dL (12.2-16.2); Lymphocytes # (auto) 0.8 10 ^3/uL (0.4-5.4); Lymphocytes % (auto) 6.6 % (10.0-50.0); Mean Corpuscular Hemoglobin 32.1 pg (28.0-32.0); Mean Corpuscular Hgb Conc. 33.3 g/dL (32.0-36.0); Mean Corpuscular Volume 96.4 fL (80.0-100.0); Monocytes # (auto) 0.7 10 ^3/uL (0-1.3); Monocytes % (auto) 5.7 % (0.0-12.0); Neutrophils # (auto) 10.2 10 ^3/uL (1.6-8.6); Neutrophils % (auto) 87.4 % (37.0-80.0); Nucleated Red Blood Cells % 0.3 %; Platelet Count (auto) 321 10^3/uL (140-450); Red Blood Cells 3.15 10^6/uL (4.0-5.20); Red Cell Distribution Width 14.5 % (11.8-14.3); White Blood Cell 11.6 10^3/uL (4.4-10.8)
[2020-10-27 05:50] LABS: Potassium 3.5 mmol/L (3.5-5.1)
[2020-10-27 05:54] LABS: Albumin 1.9 g/dL (3.4-5.0); Bilirubin, Total 0.6 mg/dL (0.2-1.0); Calcium 7.7 mg/dL (8.5-10.1); Total Protein 6.5 g/dL (6.4-8.2)
[2020-10-27] MEDS: ENOXAPARIN SOD 40 MG/0.4 ML SYRINGE SC SCH (10:00)
[2020-10-27] MEDS: DexAMETHasone SOD PHOS 10MG/1ML VIAL INJ IV SCH (10:00)
[2020-10-27] MEDS: FAMOTIDINE (10MG/ML) 2ML VL IV SCH ×2 (10:00→22:00)
[2020-10-27] MEDS: INSULIN LANTUS (GLARGINE) 1 /0.01ml (100units/ml) SC SCH (10:30)
[2020-10-27] MEDS: MIDAZOLAM DRIP 50 mg/50mL 50 ML IV SCH (14:00)
[2020-10-27] MEDS: NOREPINEPHRINE 8 MG/250ML KIT 250 ML IV SCH (14:00)
[2020-10-27] MEDS: PROPOFOL 100 ML IV SCH (15:15)
[2020-10-28] VITALS (25 sets, daily range): BP systolic 95–141; BP diastolic 56–95
[2020-10-28] MEDS: ACCU-CHEK COMFORT CURVE STRIP VI SCH ×4 (00:23→17:26)
[2020-10-28] MEDS: PIPERACILLIN-TAZOB 3.375GM 100 ML IV SCH ×4 (05:42→17:26)
[2020-10-28] MEDS: InsuLIN REG 1unit/0.01ml Soln (100units/ml) SC SCH ×4 (05:43→17:26)
[2020-10-28 05:46] LABS: Hematocrit 27.9 % (36.0-46.0); Hemoglobin 9.4 g/dL (12.2-16.2); Mean Corpuscular Hemoglobin 32.4 pg (28.0-32.0); Mean Corpuscular Hgb Conc. 33.7 g/dL (32.0-36.0); Mean Corpuscular Volume 96.3 fL (80.0-100.0); Platelet Count (auto) 274 10^3/uL (140-450); Red Cell Distribution Width 14.3 % (11.8-14.3); White Blood Cell 9.1 10^3/uL (4.4-10.8)
[2020-10-28 06:06] LABS: Albumin 1.6 g/dL (3.4-5.0); BUN/Creatinine Ratio 38.1; Bilirubin, Total 0.6 mg/dL (0.2-1.0); Calcium 7.6 mg/dL (8.5-10.1); Total Protein 5.8 g/dL (6.4-8.2)
[2020-10-28 06:17] LABS: Basophils % (manual) 0 (0.0-2.0); Blast Cells 0; Eosinophils % (manual) 0 (0-7); Myelocytes % 0; Promyelocytes % 0; Reactive Lymphocytes 0
[2020-10-28 06:25] LABS: Potassium 2.8 mmol/L (3.5-5.1)
[2020-10-28 06:35] LABS: Band Neutrophils % (manual) 14; Lymphocytes % (manual) 11 (10.0-50.0); Metamyelocytes % 1; Monocytes % (manual) 8 (0-12)
[2020-10-28] MEDS: FAMOTIDINE (10MG/ML) 2ML VL IV SCH (08:55)
[2020-10-28] MEDS: INSULIN LANTUS (GLARGINE) 1 /0.01ml (100units/ml) SC SCH (08:55)
[2020-10-28] MEDS: DexAMETHasone SOD PHOS 10MG/1ML VIAL INJ IV SCH (08:55)
[2020-10-28] MEDS: ENOXAPARIN SOD 40 MG/0.4 ML SYRINGE SC SCH (08:55)
[2020-10-28] MEDS: MIDAZOLAM DRIP 50 mg/50mL 50 ML IV SCH (14:00)
[2020-10-28] MEDS: NOREPINEPHRINE 8 MG/250ML KIT 250 ML IV SCH (14:00)
[2020-10-28] MEDS: POTASSIUM CHL 20MEQ/100ML 100 ML IV SCH ×3 (14:15→22:13)
[2020-10-28] MEDS: PROPOFOL 100 ML IV SCH (15:15)
[2020-10-29] VITALS (15 sets, daily range): BP systolic 126–156; BP diastolic 67–85
[2020-10-29 02:11] LABS: Hematocrit 29.5 % (36.0-46.0); Mean Corpuscular Hemoglobin 32.7 pg (28.0-32.0); Mean Corpuscular Hgb Conc. 33.8 g/dL (32.0-36.0); Mean Corpuscular Volume 96.7 fL (80.0-100.0); Platelet Count (auto) 299 10^3/uL (140-450); Red Blood Cells 3.05 10^6/uL (4.0-5.20); Red Cell Distribution Width 14.4 % (11.8-14.3); White Blood Cell 10.6 10^3/uL (4.4-10.8)
[2020-10-29 02:16] LABS: Basophils % (manual) 0 (0.0-2.0); Blast Cells 0; Eosinophils % (manual) 0 (0-7); Promyelocytes % 0; Reactive Lymphocytes 0
[2020-10-29 02:56] LABS: Band Neutrophils % (manual) 15; Lymphocytes % (manual) 8 (10.0-50.0); Metamyelocytes % 2; Monocytes % (manual) 10 (0-12); Myelocytes % 1
[2020-10-29 04:02] LABS: Albumin 1.9 g/dL (3.4-5.0); Potassium 3.9 mmol/L (3.5-5.1)
[2020-10-29 04:05] LABS: BUN/Creatinine Ratio 34.5; Bilirubin, Total 0.6 mg/dL (0.2-1.0); Total Protein 6.1 g/dL (6.4-8.2)
[2020-10-29] MEDS: InsuLIN REG 1unit/0.01ml Soln (100units/ml) SC SCH ×5 (06:00→23:37)
[2020-10-29] MEDS: ACCU-CHEK COMFORT CURVE STRIP VI SCH ×5 (06:03→23:37)
[2020-10-29] MEDS: PIPERACILLIN-TAZOB 3.375GM 100 ML IV SCH ×5 (06:06→23:39)
[2020-10-29] MEDS: ENOXAPARIN SOD 40 MG/0.4 ML SYRINGE SC SCH (10:00)
[2020-10-29] MEDS: INSULIN LANTUS (GLARGINE) 1 /0.01ml (100units/ml) SC SCH (10:00)
[2020-10-29] MEDS: FAMOTIDINE (10MG/ML) 2ML VL IV SCH (11:14)
[2020-10-29] MEDS: DEXTROSE (50%) 50ML SYRG IV PRN (23:38)
[2020-10-30 00:38] VITALS: BP 123/73
[2020-10-30] MEDS: InsuLIN REG 1unit/0.01ml Soln (100units/ml) SC SCH ×4 (04:50→23:51)
[2020-10-30] MEDS: ACCU-CHEK COMFORT CURVE STRIP VI SCH ×4 (04:50→23:51)
[2020-10-30] MEDS: PIPERACILLIN-TAZOB 3.375GM 100 ML IV SCH ×3 (04:56→18:03)
[2020-10-30 06:31] LABS: Basophils # (auto) 0 10 ^3/uL (0-0.2); Basophils % (auto) 0.1 % (0.0-2.0); Eosinophils # (auto) 0.2 10 ^3/uL (0-0.8); Eosinophils % (auto) 2.1 % (0.0-7.0); Hematocrit 28.1 % (36.0-46.0); Hemoglobin 9.6 g/dL (12.2-16.2); Lymphocytes # (auto) 0.9 10 ^3/uL (0.4-5.4); Lymphocytes % (auto) 10.1 % (10.0-50.0); Mean Corpuscular Hemoglobin 32.8 pg (28.0-32.0); Mean Corpuscular Hgb Conc. 34.2 g/dL (32.0-36.0); Mean Corpuscular Volume 96.1 fL (80.0-100.0); Monocytes # (auto) 0.9 10 ^3/uL (0-1.3); Monocytes % (auto) 10.7 % (0.0-12.0); Neutrophils # (auto) 6.8 10 ^3/uL (1.6-8.6); Nucleated Red Blood Cells % 0.1 %; Platelet Count (auto) 259 10^3/uL (140-450); Red Blood Cells 2.92 10^6/uL (4.0-5.20); Red Cell Distribution Width 14.6 % (11.8-14.3); White Blood Cell 8.8 10^3/uL (4.4-10.8)
[2020-10-30 06:48] LABS: Potassium 3.2 mmol/L (3.5-5.1)
[2020-10-30 07:09] LABS: BUN/Creatinine Ratio 25.5; Calcium 7.6 mg/dL (8.5-10.1)
[2020-10-30 08:07] VITALS: BP 133/83
[2020-10-30] MEDS: INSULIN LANTUS (GLARGINE) 1 /0.01ml (100units/ml) SC SCH (10:00)
[2020-10-30] MEDS: FAMOTIDINE (10MG/ML) 2ML VL IV SCH (11:38)
[2020-10-30] MEDS: DexAMETHasone SOD PHOS 10MG/1ML VIAL INJ IV SCH (11:38)
[2020-10-30 15:59] VITALS: BP 126/71
[2020-10-30] MEDS: POTASSIUM CHL 20MEQ/100ML 100 ML IV SCH ×2 (21:19→23:51)
[2020-10-31] MEDS: ACCU-CHEK COMFORT CURVE STRIP VI SCH ×3 (05:39→17:57)
[2020-10-31] MEDS: InsuLIN REG 1unit/0.01ml Soln (100units/ml) SC SCH ×3 (05:39→17:57)
[2020-10-31 07:26] LABS: Hematocrit 30.3 % (36.0-46.0); Mean Corpuscular Hemoglobin 32.1 pg (28.0-32.0); Mean Corpuscular Hgb Conc. 33.1 g/dL (32.0-36.0); Mean Corpuscular Volume 96.9 fL (80.0-100.0); Platelet Count (auto) 259 10^3/uL (140-450); Red Blood Cells 3.13 10^6/uL (4.0-5.20); Red Cell Distribution Width 14.5 % (11.8-14.3); White Blood Cell 11.5 10^3/uL (4.4-10.8)
[2020-10-31 07:34] LABS: Band Neutrophils % (manual) 0; Basophils % (manual) 0 (0.0-2.0); Blast Cells 0; Eosinophils % (manual) 0 (0-7); Metamyelocytes % 0; Myelocytes % 0; Promyelocytes % 0; Reactive Lymphocytes 0
[2020-10-31 07:39] LABS: Potassium 3.7 mmol/L (3.5-5.1)
[2020-10-31 07:46] LABS: Calcium 8.1 mg/dL (8.5-10.1)
[2020-10-31 08:00] VITALS: BP 119/64
[2020-10-31 08:12] LABS: Lymphocytes % (manual) 8 (10.0-50.0); Monocytes % (manual) 6 (0-12)
[2020-10-31] MEDS: INSULIN LANTUS (GLARGINE) 1 /0.01ml (100units/ml) SC SCH (10:00)
[2020-10-31] MEDS: FAMOTIDINE (10MG/ML) 2ML VL IV SCH (10:00)
[2020-10-31] MEDS: DexAMETHasone SOD PHOS 10MG/1ML VIAL INJ IV SCH (10:11)
[2020-10-31] MEDS ORDERED: IOHEXOL 350 MG/ML 100ML IJ ONE (10:29)
[2020-10-31 17:00] VITALS: BP 130/81
[2020-11-01] VITALS: BP 114/67
[2020-11-01] MEDS: ACCU-CHEK COMFORT CURVE STRIP VI SCH ×5 (00:18→23:27)
[2020-11-01] MEDS: InsuLIN REG 1unit/0.01ml Soln (100units/ml) SC SCH ×5 (05:49→23:26)
[2020-11-01 08:00] VITALS: BP 149/79
[2020-11-01] MEDS: FAMOTIDINE (10MG/ML) 2ML VL IV SCH (08:55)
[2020-11-01] MEDS: INSULIN LANTUS (GLARGINE) 1 /0.01ml (100units/ml) SC SCH (08:55)
[2020-11-01 16:00] VITALS: BP 143/80
[2020-11-01] MEDS: VANCOMYCIN HCL 125MG/5ML ORAL SOL PO SCH ×3 (17:00→22:00)
[2020-11-01] MEDS ORDERED: POTASSIUM EFFERVESENT TAB 25 MEQ PO ONE (17:15)
[2020-11-01] MEDS: DEXTROSE (50%) 50ML SYRG IV PRN (23:46)
[2020-11-02] VITALS: BP 149/88
[2020-11-02] MEDS: VANCOMYCIN HCL 125MG/5ML ORAL SOL PO SCH ×2 (05:10→12:00)
[2020-11-02] MEDS: ACCU-CHEK COMFORT CURVE STRIP VI SCH ×2 (05:11→12:00)
[2020-11-02] MEDS: InsuLIN REG 1unit/0.01ml Soln (100units/ml) SC SCH ×2 (05:23→12:00)
[2020-11-02] MEDS: DEXTROSE (50%) 50ML SYRG IV PRN (05:29)
[2020-11-02 06:03] LABS: Basophils # (auto) 0 10 ^3/uL (0-0.2); Basophils % (auto) 0.3 % (0.0-2.0); Eosinophils # (auto) 0.1 10 ^3/uL (0-0.8); Eosinophils % (auto) 1.2 % (0.0-7.0); Hematocrit 28.4 % (36.0-46.0); Hemoglobin 9.7 g/dL (12.2-16.2); Lymphocytes # (auto) 1.4 10 ^3/uL (0.4-5.4); Lymphocytes % (auto) 16.1 % (10.0-50.0); Mean Corpuscular Hemoglobin 33.5 pg (28.0-32.0); Mean Corpuscular Hgb Conc. 34.3 g/dL (32.0-36.0); Mean Corpuscular Volume 97.8 fL (80.0-100.0); Monocytes # (auto) 1.3 10 ^3/uL (0-1.3); Monocytes % (auto) 14.5 % (0.0-12.0); Neutrophils % (auto) 67.9 % (37.0-80.0); Nucleated Red Blood Cells % 0.3 %; Platelet Count (auto) 215 10^3/uL (140-450); Red Cell Distribution Width 14.9 % (11.8-14.3); White Blood Cell 8.8 10^3/uL (4.4-10.8)
[2020-11-02 06:35] LABS: BUN/Creatinine Ratio 35.3; Potassium 3.8 mmol/L (3.5-5.1)
[2020-11-02 08:00] VITALS: BP 142/89
[2020-11-02] MEDS: INSULIN LANTUS (GLARGINE) 1 /0.01ml (100units/ml) SC SCH (10:00)
[2020-11-02] MEDS: FAMOTIDINE (10MG/ML) 2ML VL IV SCH (10:00)
[2020-11-02] MEDS ORDERED: INSDRIP IV (19:51)
[2020-11-02] MEDS ORDERED: VANC125PO PO (19:51)
== END 2020-11-02 15:00 | disposition hospice, home (50) | DRG 130 ==
LOC: EDBD 13:15 → ER 13:15 → OVERFLOW 13:16 → ICU WEST 10-19 18:10 → TELE-WESTW 10-29 15:29
PROVIDERS: ADMIT Internal Medicine; ATTEND Internal Medicine
PROC: 5A1955Z Respiratory Ventilation, Greater than 96 Consecutive Hours (ICD-10-PCS; principal; 2020-10-18)
PROC: 0BH17EZ Insertion of Endotracheal Airway into Trachea, Via Natural or Artificial Opening (ICD-10-PCS; 2020-10-18)
PROC: 06HY33Z Insertion of Infusion Device into Lower Vein, Percutaneous Approach (ICD-10-PCS; 2020-10-18)
PROC: XW033E5 Introduction of Remdesivir Anti-infective into Peripheral Vein, Percutaneous Approach, New Technology Group 5 (ICD-10-PCS; 2020-10-25)
DX: U07.1 COVID-19 (principal); J12.82 Pneumonia due to coronavirus disease 2019; J96.01 Acute respiratory failure with hypoxia; I42.9 Cardiomyopathy, unspecified; I95.89 Other hypotension; J44.9 Chronic obstructive pulmonary disease, unspecified; I48.91 Unspecified atrial fibrillation; D63.8 Anemia in other chronic diseases classified elsewhere; E66.01 Morbid (severe) obesity due to excess calories; Z68.30 Body mass index [BMI] 30.0-30.9, adult; E87.2 Acidosis; E87.6 Hypokalemia; G93.1 Anoxic brain damage, not elsewhere classified; G93.41 Metabolic encephalopathy; N17.9 Acute kidney failure, unspecified; I11.0 Hypertensive heart disease with heart failure; I50.23 Acute on chronic systolic (congestive) heart failure; E11.9 Type 2 diabetes mellitus without complications; J44.0 Chronic obstructive pulmonary disease with (acute) lower respiratory infection
CPT/HCPCS: 31500; 36415; 36556; 36600; 51702; 70450; 71045; 71275; 80048; 80053; 80202; 81001; 82270; 82728; 82805; 82962; 83605; 83615; 83735; 84132; 84484; 85007; 85025; 85027; 85379; 85610; 85730; 86141; 87040; 87070; 87081; 87205; 87426; 87493; 92610; 93005; 93306; 94002; 94003; 94640; 97110; 97163; 97530; 99291; G0378; J0330; J1100; J1815; J2250; J2543; J2704; J3480; J3490; J7060

== ENCOUNTER 2020-11-11 15:04 | Inpatient (IN) | payer MEDICAID ==
[~2020-11-11] VITALS: Ht 175.3 cm; Wt 74.2 kg
[~2020-11-11 15:04] MED LIST changes: -ASCO500T11 PO; -CHOL1CAP47 PO; -DEXA6TAB6 PO; +DICL1GEL50 TD; +DILT-29 PO; +INSDRIP IV; +IPRAAER6 IN; -LOS25T PO; -POTA10TA51 PO; +POTA8TAB2 PO; +VANC125PO PO; -ZINCCAP PO
[2020-11-11] MEDS ORDERED: MIDAZOLAM HCL 1MG/1ML-2 ML VIAL ONE (15:10)
[2020-11-11] MEDS ORDERED: MIDAZOLAM DRIP 50 mg/50mL 50 ML IV ONE (15:11)
[2020-11-11] MEDS ORDERED: NOREPINEPHRINE 8 MG/250ML KIT 250 ML IV ONE (15:16)
[2020-11-11 15:43] LABS: Basophils # (auto) 0 10 ^3/uL (0-0.2); Basophils % (auto) 0.2 % (0.0-2.0); Eosinophils # (auto) 0.8 10 ^3/uL (0-0.8); Eosinophils % (auto) 6.8 % (0.0-7.0); Hematocrit 29.1 % (36.0-46.0); Hemoglobin 9.4 g/dL (12.2-16.2); Lymphocytes # (auto) 4.3 10 ^3/uL (0.4-5.4); Lymphocytes % (auto) 38.2 % (10.0-50.0); Mean Corpuscular Hemoglobin 32.5 pg (28.0-32.0); Mean Corpuscular Hgb Conc. 32.3 g/dL (32.0-36.0); Mean Corpuscular Volume 100.7 fL (80.0-100.0); Monocytes # (auto) 0.9 10 ^3/uL (0-1.3); Monocytes % (auto) 7.8 % (0.0-12.0); Neutrophils # (auto) 5.3 10 ^3/uL (1.6-8.6); Nucleated Red Blood Cells % 0.1 %; Platelet Count (auto) 168 10^3/uL (140-450); Red Cell Distribution Width 16.3 % (11.8-14.3); White Blood Cell 11.4 10^3/uL (4.4-10.8)
[2020-11-11] MEDS: MIDAZOLAM DRIP 50 mg/50mL 50 ML IV SCH (15:44)
[2020-11-11] MEDS: NOREPINEPHRINE 8 MG/250ML KIT 250 ML IV SCH (15:45)
[2020-11-11 15:54] LABS: INR 1.25 (0.9-1.15); Partial Thromboplastin Time 32.5 sec (23.0-31.2)
[2020-11-11 15:55] LABS: Albumin 1.8 g/dL (3.4-5.0); Calcium 7.8 mg/dL (8.5-10.1); Magnesium 2.1 mg/dL (1.6-2.6); Potassium 4.4 mmol/L (3.5-5.1)
[2020-11-11 15:59] LABS: Lactic Acid w/Reflex 2.9 mmol/L (0.4-2.0)
[2020-11-11 16:01] LABS: BUN/Creatinine Ratio 26.4; Bilirubin, Total 0.5 mg/dL (0.2-1.0); Total Protein 6.1 g/dL (6.4-8.2)
[2020-11-11 16:07] LABS: CRP High Sensitivity 12.4 mg/dL (< 0.3)
[2020-11-11 16:08] LABS: Urine Bacteria FEW /hpf (None Seen); Urine Blood 1+ /uL (Negative); Urine Budding Yeast MODERATE /hpf (None Seen); Urine Mucus FEW (None Seen); Urine WBC 46 /hpf (0 - 5)
[2020-11-11 16:17] LABS: Alcohol, Urine < 3.0 mg/dL (0-10); Barbiturate Scree,Urine NEGATIVE (NEGATIVE); Benzodiazephine Screen, Urine POSITIVE (NEGATIVE); Cannabinoid Screen, Urine NEGATIVE (NEGATIVE); Cocaine Screen, Urine NEGATIVE (NEGATIVE); Opiate Scree,Urine POSITIVE (NEGATIVE); Phencyclidine Screen, Urine NEGATIVE (NEGATIVE)
[2020-11-11 16:24] LABS: Amphetamine Screen, Urine NEGATIVE (NEGATIVE)
[2020-11-11] MEDS ORDERED: ENOXAPARIN SOD 80 MG/0.8ML SYRINGE SC ONE (16:45)
[2020-11-11] MEDS ORDERED: FUROSEMIDE 40 MG/4 ML VIAL IV ONE (16:45)
[2020-11-11] MEDS ORDERED: cefTRIAXone 1GM/50ML D5W 50 ML IV ONE (16:45)
[2020-11-11] MEDS ORDERED: MORPHINE SULF INJ 2 MG/ML SYRINGE 1ML IV PRN (17:30)
[2020-11-11] MEDS ORDERED: NITROGLYCERIN 0.4 MG SL TAB SL PRN (17:30)
[2020-11-11] MEDS: FUROSEMIDE 40 MG/4 ML VIAL IV SCH (18:33)
[2020-11-11 18:40] VITALS: BP 112/66
[2020-11-11] MEDS: DOXYCYCLINE 100MG/250ML 250 ML IV SCH (22:22)
[2020-11-11 22:36] VITALS: BP 115/71
[2020-11-12] VITALS (11 sets, daily range): BP systolic 95–127; BP diastolic 59–87
[2020-11-12 06:14] LABS: Basophils # (auto) 0 10 ^3/uL (0-0.2); Basophils % (auto) 0.5 % (0.0-2.0); Eosinophils # (auto) 0.6 10 ^3/uL (0-0.8); Eosinophils % (auto) 7.2 % (0.0-7.0); Hematocrit 28.7 % (36.0-46.0); Hemoglobin 9.7 g/dL (12.2-16.2); Lymphocytes # (auto) 1.7 10 ^3/uL (0.4-5.4); Lymphocytes % (auto) 21.4 % (10.0-50.0); Mean Corpuscular Hemoglobin 33.3 pg (28.0-32.0); Mean Corpuscular Hgb Conc. 33.7 g/dL (32.0-36.0); Monocytes # (auto) 0.6 10 ^3/uL (0-1.3); Neutrophils # (auto) 5.2 10 ^3/uL (1.6-8.6); Neutrophils % (auto) 63.9 % (37.0-80.0); Nucleated Red Blood Cells % 0.1 %; Platelet Count (auto) 162 10^3/uL (140-450); Red Cell Distribution Width 15.8 % (11.8-14.3); White Blood Cell 8.1 10^3/uL (4.4-10.8)
[2020-11-12] MEDS: FUROSEMIDE 40 MG/4 ML VIAL IV SCH ×2 (06:21→18:39)
[2020-11-12 06:38] LABS: Potassium 3.4 mmol/L (3.5-5.1)
[2020-11-12 06:47] LABS: BUN/Creatinine Ratio 36.7; Calcium 7.7 mg/dL (8.5-10.1); Magnesium 1.5 mg/dL (1.6-2.6)
[2020-11-12] MEDS ORDERED: REMDESIVIR PER PHARMACY 0 ML IV SCH (08:30)
[2020-11-12] MEDS: MIDAZOLAM DRIP 50 mg/50mL 50 ML IV SCH ×2 (09:55→14:56)
[2020-11-12] MEDS ORDERED: REMDESIVIR 200 MG in NS 210ml LOADING DOSE ADULT IV ONE ×2 (10:30→14:00)
[2020-11-12] MEDS ORDERED: POTASSIUM EFFERVESENT TAB 25 MEQ GT ONE (10:45)
[2020-11-12] MEDS: ENOXAPARIN SOD 80 MG/0.8ML SYRINGE SC SCH ×2 (10:46→21:48)
[2020-11-12] MEDS: DOXYCYCLINE 100MG/250ML 250 ML IV SCH ×2 (10:48→21:04)
[2020-11-12] MEDS: MAGNESIUM SULFATE 1GM/100ML 100 ML IV SCH ×3 (10:49→13:08)
[2020-11-12] MEDS: DexAMETHasone SOD PHOS 10MG/1ML VIAL INJ IV SCH (10:49)
[2020-11-12] MEDS: NOREPINEPHRINE 8 MG/250ML KIT 250 ML IV SCH (15:30)
[2020-11-12] MEDS: PANTOPRAZOLE 40 MG/10 ML VIAL INJ IV SCH (18:15)
[2020-11-13] VITALS (17 sets, daily range): BP systolic 92–125; BP diastolic 58–82
[2020-11-13] MEDS: MIDAZOLAM DRIP 50 mg/50mL 50 ML IV SCH ×2 (00:42→02:57)
[2020-11-13] MEDS: FUROSEMIDE 40 MG/4 ML VIAL IV SCH ×2 (06:00→18:43)
[2020-11-13 06:34] LABS: Potassium 4.2 mmol/L (3.5-5.1)
[2020-11-13 06:49] LABS: Albumin 1.6 g/dL (3.4-5.0); BUN/Creatinine Ratio 27.6; Bilirubin, Total 0.6 mg/dL (0.2-1.0); Calcium 7.6 mg/dL (8.5-10.1); Total Protein 6.1 g/dL (6.4-8.2)
[2020-11-13] MEDS: DexAMETHasone SOD PHOS 10MG/1ML VIAL INJ IV SCH (10:50)
[2020-11-13] MEDS: PANTOPRAZOLE 40 MG/10 ML VIAL INJ IV SCH (10:50)
[2020-11-13] MEDS: DOXYCYCLINE 100MG/250ML 250 ML IV SCH ×2 (10:50→22:00)
[2020-11-13] MEDS: ENOXAPARIN SOD 80 MG/0.8ML SYRINGE SC SCH ×2 (10:50→22:00)
[2020-11-13] MEDS ORDERED: REMDESIVIR 100mg 100 MG in SODIUM CHL 0.9% 230 ML IV SCH (15:00)
[2020-11-13] MEDS: NOREPINEPHRINE 8 MG/250ML KIT 250 ML IV SCH (15:30)
[2020-11-14] VITALS (74 sets, daily range): BP systolic 89–146; BP diastolic 57–98
[2020-11-14 05:21] LABS: Potassium 3.3 mmol/L (3.5-5.1)
[2020-11-14 05:31] LABS: Albumin 1.8 g/dL (3.4-5.0); Bilirubin, Total 0.6 mg/dL (0.2-1.0); Calcium 7.9 mg/dL (8.5-10.1); Total Protein 6.4 g/dL (6.4-8.2)
[2020-11-14] MEDS: FUROSEMIDE 40 MG/4 ML VIAL IV SCH ×2 (05:59→18:14)
[2020-11-14] MEDS: DexAMETHasone SOD PHOS 10MG/1ML VIAL INJ IV SCH (09:19)
[2020-11-14] MEDS: PANTOPRAZOLE 40 MG/10 ML VIAL INJ IV SCH (09:19)
[2020-11-14] MEDS: DOXYCYCLINE 100MG/250ML 250 ML IV SCH ×2 (09:20→22:00)
[2020-11-14] MEDS: ENOXAPARIN SOD 80 MG/0.8ML SYRINGE SC SCH ×2 (09:20→22:00)
[2020-11-14] MEDS: POTASSIUM CHL 20MEQ/100ML 100 ML IV SCH ×2 (14:41→15:42)
[2020-11-14] MEDS ORDERED: DEXTROSE (50%) 50ML SYRG IV PRN (15:00)
[2020-11-14] MEDS: NOREPINEPHRINE 8 MG/250ML KIT 250 ML IV SCH (15:30)
[2020-11-14] MEDS: MIDAZOLAM DRIP 50 mg/50mL 50 ML IV SCH (15:30)
[2020-11-14] MEDS: InsuLIN REG 1unit/0.01ml Soln (100units/ml) SC SCH ×2 (18:15→23:51)
[2020-11-14] MEDS: ACCU-CHEK COMFORT CURVE STRIP VI SCH ×2 (18:15→23:53)
[2020-11-15] VITALS (54 sets, daily range): BP systolic 104–149; BP diastolic 66–112
[2020-11-15 04:47] LABS: Basophils # (auto) 0 10 ^3/uL (0-0.2); Basophils % (auto) 0.5 % (0.0-2.0); Eosinophils # (auto) 0 10 ^3/uL (0-0.8); Hematocrit 27.4 % (36.0-46.0); Hemoglobin 9.4 g/dL (12.2-16.2); Lymphocytes # (auto) 0.8 10 ^3/uL (0.4-5.4); Lymphocytes % (auto) 14.4 % (10.0-50.0); Mean Corpuscular Hemoglobin 33.1 pg (28.0-32.0); Mean Corpuscular Hgb Conc. 34.2 g/dL (32.0-36.0); Mean Corpuscular Volume 96.6 fL (80.0-100.0); Monocytes # (auto) 0.4 10 ^3/uL (0-1.3); Monocytes % (auto) 7.7 % (0.0-12.0); Neutrophils # (auto) 4.1 10 ^3/uL (1.6-8.6); Neutrophils % (auto) 77.4 % (37.0-80.0); Nucleated Red Blood Cells % 0.1 %; Platelet Count (auto) 195 10^3/uL (140-450); Red Blood Cells 2.84 10^6/uL (4.0-5.20); Red Cell Distribution Width 16.1 % (11.8-14.3); White Blood Cell 5.4 10^3/uL (4.4-10.8)
[2020-11-15 05:09] LABS: Albumin 1.8 g/dL (3.4-5.0); Calcium 7.5 mg/dL (8.5-10.1); Potassium 3.8 mmol/L (3.5-5.1)
[2020-11-15 05:15] LABS: BUN/Creatinine Ratio 35.2; Bilirubin, Total 0.4 mg/dL (0.2-1.0); Total Protein 6.2 g/dL (6.4-8.2)
[2020-11-15] MEDS: InsuLIN REG 1unit/0.01ml Soln (100units/ml) SC SCH ×3 (05:34→18:16)
[2020-11-15] MEDS: FUROSEMIDE 40 MG/4 ML VIAL IV SCH ×2 (05:36→18:16)
[2020-11-15] MEDS: ACCU-CHEK COMFORT CURVE STRIP VI SCH ×3 (05:36→18:16)
[2020-11-15] MEDS: DexAMETHasone SOD PHOS 10MG/1ML VIAL INJ IV SCH (09:18)
[2020-11-15] MEDS: PANTOPRAZOLE 40 MG/10 ML VIAL INJ IV SCH (09:18)
[2020-11-15] MEDS: ENOXAPARIN SOD 80 MG/0.8ML SYRINGE SC SCH ×2 (09:19→22:00)
[2020-11-15] MEDS: DOXYCYCLINE 100MG/250ML 250 ML IV SCH ×2 (09:19→22:00)
[2020-11-15] MEDS: NOREPINEPHRINE 8 MG/250ML KIT 250 ML IV SCH (15:30)
[2020-11-15] MEDS: MIDAZOLAM DRIP 50 mg/50mL 50 ML IV SCH (15:30)
[2020-11-16] VITALS (58 sets, daily range): BP systolic 115–162; BP diastolic 57–105
[2020-11-16 04:33] LABS: Albumin 2.1 g/dL (3.4-5.0); Calcium 7.8 mg/dL (8.5-10.1); Potassium 3.1 mmol/L (3.5-5.1)
[2020-11-16 04:37] LABS: BUN/Creatinine Ratio 39.7; Bilirubin, Total 0.5 mg/dL (0.2-1.0); Total Protein 6.6 g/dL (6.4-8.2)
[2020-11-16] MEDS: FUROSEMIDE 40 MG/4 ML VIAL IV SCH ×2 (05:37→17:53)
[2020-11-16] MEDS: InsuLIN REG 1unit/0.01ml Soln (100units/ml) SC SCH ×5 (05:37→23:50)
[2020-11-16] MEDS: ACCU-CHEK COMFORT CURVE STRIP VI SCH ×5 (05:38→23:51)
[2020-11-16] MEDS: DexAMETHasone SOD PHOS 10MG/1ML VIAL INJ IV SCH (09:03)
[2020-11-16] MEDS: PANTOPRAZOLE 40 MG/10 ML VIAL INJ IV SCH (09:03)
[2020-11-16] MEDS: ENOXAPARIN SOD 80 MG/0.8ML SYRINGE SC SCH ×2 (09:04→21:43)
[2020-11-16] MEDS: DOXYCYCLINE 100MG/250ML 250 ML IV SCH ×2 (09:04→21:43)
[2020-11-16] MEDS: POTASSIUM CHL 20MEQ/100ML 100 ML IV SCH ×3 (13:04→17:53)
[2020-11-16] MEDS ORDERED: AMIODARONE HCL 150 MG in D5W 5% 100 ML IV ONE (13:15)
[2020-11-16] MEDS ORDERED: AMIODARONE 450mg/250ml AE 250 ML IV SCH (13:30)
[2020-11-16] MEDS: MORPHINE SULF INJ 2 MG/ML SYRINGE 1ML IV PRN ×2 (14:55→23:51)
[2020-11-16] MEDS: AMIODARONE 450mg/250ml AE 250 ML IV SCH (19:30)
[2020-11-17] VITALS (69 sets, daily range): BP systolic 97–134; BP diastolic 65–90
[2020-11-17 04:39] LABS: Basophils # (auto) 0 10 ^3/uL (0-0.2); Basophils % (auto) 0.1 % (0.0-2.0); Eosinophils # (auto) 0 10 ^3/uL (0-0.8); Hematocrit 30.5 % (36.0-46.0); Hemoglobin 10.2 g/dL (12.2-16.2); Lymphocytes # (auto) 1.1 10 ^3/uL (0.4-5.4); Lymphocytes % (auto) 10.2 % (10.0-50.0); Mean Corpuscular Hemoglobin 32.7 pg (28.0-32.0); Mean Corpuscular Hgb Conc. 33.5 g/dL (32.0-36.0); Mean Corpuscular Volume 97.6 fL (80.0-100.0); Monocytes # (auto) 1.3 10 ^3/uL (0-1.3); Monocytes % (auto) 12.1 % (0.0-12.0); Neutrophils # (auto) 8.1 10 ^3/uL (1.6-8.6); Neutrophils % (auto) 77.6 % (37.0-80.0); Nucleated Red Blood Cells % 0.2 %; Platelet Count (auto) 297 10^3/uL (140-450); Red Blood Cells 3.12 10^6/uL (4.0-5.20); White Blood Cell 10.5 10^3/uL (4.4-10.8)
[2020-11-17 05:00] LABS: BUN/Creatinine Ratio 38.5; Calcium 7.6 mg/dL (8.5-10.1); Magnesium 1.4 mg/dL (1.6-2.6); Potassium 4.4 mmol/L (3.5-5.1)
[2020-11-17 05:10] LABS: INR 1.35 (0.9-1.15); Partial Thromboplastin Time 35.6 sec (23.0-31.2)
[2020-11-17] MEDS: FUROSEMIDE 40 MG/4 ML VIAL IV SCH (05:33)
[2020-11-17] MEDS: InsuLIN REG 1unit/0.01ml Soln (100units/ml) SC SCH ×4 (05:34→23:29)
[2020-11-17] MEDS: ACCU-CHEK COMFORT CURVE STRIP VI SCH ×4 (05:52→23:28)
[2020-11-17] MEDS: DexAMETHasone SOD PHOS 10MG/1ML VIAL INJ IV SCH (09:19)
[2020-11-17] MEDS: DOXYCYCLINE 100MG/250ML 250 ML IV SCH ×2 (09:19→22:06)
[2020-11-17] MEDS: ENOXAPARIN SOD 80 MG/0.8ML SYRINGE SC SCH ×2 (09:19→22:06)
[2020-11-17] MEDS: PANTOPRAZOLE 40 MG/10 ML VIAL INJ IV SCH (09:19)
[2020-11-17] MEDS: AMIODARONE 450mg/250ml AE 250 ML IV SCH (10:30)
[2020-11-17] MEDS ORDERED: FUROSEMIDE 20 MG/2 ML VIAL IV SCH (18:00)
[2020-11-17] MEDS: AMIODARONE HCL 200 MG TAB PO SCH (22:07)
[2020-11-18] MEDS: AMIODARONE 450mg/250ml AE 250 ML IV SCH (03:37)
[2020-11-18 05:00] VITALS: BP 120/70
[2020-11-18] MEDS: MAGNESIUM SULFATE 1GM/100ML 100 ML IV SCH ×2 (05:11→06:29)
[2020-11-18] MEDS: ACCU-CHEK COMFORT CURVE STRIP VI SCH ×4 (05:27→23:51)
[2020-11-18] MEDS: InsuLIN REG 1unit/0.01ml Soln (100units/ml) SC SCH ×4 (05:31→23:51)
[2020-11-18 06:07] LABS: Basophils # (auto) 0 10 ^3/uL (0-0.2); Basophils % (auto) 0.1 % (0.0-2.0); Eosinophils # (auto) 0 10 ^3/uL (0-0.8); Hematocrit 26.6 % (36.0-46.0); Lymphocytes # (auto) 1.6 10 ^3/uL (0.4-5.4); Lymphocytes % (auto) 13.3 % (10.0-50.0); Mean Corpuscular Hemoglobin 32.9 pg (28.0-32.0); Mean Corpuscular Hgb Conc. 33.9 g/dL (32.0-36.0); Mean Corpuscular Volume 97.2 fL (80.0-100.0); Monocytes # (auto) 0.9 10 ^3/uL (0-1.3); Monocytes % (auto) 7.2 % (0.0-12.0); Neutrophils # (auto) 9.7 10 ^3/uL (1.6-8.6); Neutrophils % (auto) 79.4 % (37.0-80.0); Nucleated Red Blood Cells % 0.6 %; Platelet Count (auto) 247 10^3/uL (140-450); Red Blood Cells 2.73 10^6/uL (4.0-5.20); Red Cell Distribution Width 15.6 % (11.8-14.3); White Blood Cell 12.2 10^3/uL (4.4-10.8)
[2020-11-18 06:29] LABS: Calcium 7.5 mg/dL (8.5-10.1); Potassium 3.7 mmol/L (3.5-5.1)
[2020-11-18 06:32] LABS: BUN/Creatinine Ratio 40.7; Magnesium 1.9 mg/dL (1.6-2.6); Phosphorus 2.7 mg/dL (2.5-4.90)
[2020-11-18 08:43] VITALS: BP 99/55
[2020-11-18] MEDS: AMIODARONE HCL 200 MG TAB PO SCH ×2 (10:51→21:24)
[2020-11-18] MEDS: FUROSEMIDE 20 MG TAB PO SCH (10:52)
[2020-11-18] MEDS: APIXABAN 5 MG TAB PO SCH ×2 (10:52→21:25)
[2020-11-18] MEDS: DexAMETHasone 4 MG TAB PO SCH (10:52)
[2020-11-18] MEDS: POTASSIUM CHL 10 Meq TABLET PO SCH (10:52)
[2020-11-18] MEDS: DOXYCYCLINE 100 MG TAB/CAP PO SCH ×2 (10:53→21:25)
[2020-11-18] MEDS: PANTOPRAZOLE 40 MG TAB PO SCH (10:53)
[2020-11-18] MEDS: ATORVASTATIN 20 MG TAB PO SCH (10:53)
[2020-11-18 12:42] VITALS: BP 87/55
[2020-11-18 16:33] VITALS: BP 94/61
[2020-11-18] MEDS: NYSTATIN (MOUTH-THROAT) 500,000 UNITS/5 ML SUSP MT SCH ×2 (17:56→21:24)
[2020-11-18 22:00] VITALS: BP 97/59
[2020-11-19] MEDS: MORPHINE SULF INJ 2 MG/ML SYRINGE 1ML IV PRN ×2 (02:42→09:50)
[2020-11-19 05:09] VITALS: BP 119/84
[2020-11-19] MEDS: InsuLIN REG 1unit/0.01ml Soln (100units/ml) SC SCH ×4 (05:52→23:30)
[2020-11-19] MEDS: NYSTATIN (MOUTH-THROAT) 500,000 UNITS/5 ML SUSP MT SCH ×4 (05:52→22:10)
[2020-11-19] MEDS: ACCU-CHEK COMFORT CURVE STRIP VI SCH ×4 (05:53→23:30)
[2020-11-19 07:02] LABS: Basophils # (auto) 0 10 ^3/uL (0-0.2); Basophils % (auto) 0.1 % (0.0-2.0); Eosinophils # (auto) 0 10 ^3/uL (0-0.8); Eosinophils % (auto) 0.1 % (0.0-7.0); Hematocrit 26.9 % (36.0-46.0); Hemoglobin 9.1 g/dL (12.2-16.2); Lymphocytes # (auto) 1.4 10 ^3/uL (0.4-5.4); Lymphocytes % (auto) 15.3 % (10.0-50.0); Mean Corpuscular Hemoglobin 32.8 pg (28.0-32.0); Mean Corpuscular Hgb Conc. 33.8 g/dL (32.0-36.0); Mean Corpuscular Volume 97.1 fL (80.0-100.0); Monocytes # (auto) 1.1 10 ^3/uL (0-1.3); Monocytes % (auto) 12.4 % (0.0-12.0); Neutrophils # (auto) 6.4 10 ^3/uL (1.6-8.6); Neutrophils % (auto) 72.1 % (37.0-80.0); Nucleated Red Blood Cells % 1.7 %; Platelet Count (auto) 290 10^3/uL (140-450); Red Blood Cells 2.77 10^6/uL (4.0-5.20); Red Cell Distribution Width 15.9 % (11.8-14.3); White Blood Cell 8.8 10^3/uL (4.4-10.8)
[2020-11-19 07:19] LABS: Potassium 3.5 mmol/L (3.5-5.1)
[2020-11-19 07:31] LABS: BUN/Creatinine Ratio 44.4; Calcium 8.2 mg/dL (8.5-10.1)
[2020-11-19 08:32] VITALS: BP 132/77
[2020-11-19] MEDS: APIXABAN 5 MG TAB PO SCH ×2 (09:24→22:10)
[2020-11-19] MEDS: AMIODARONE HCL 200 MG TAB PO SCH ×2 (09:24→22:10)
[2020-11-19] MEDS: DexAMETHasone 4 MG TAB PO SCH (09:24)
[2020-11-19] MEDS: PANTOPRAZOLE 40 MG TAB PO SCH (09:25)
[2020-11-19] MEDS: DOXYCYCLINE 100 MG TAB/CAP PO SCH ×2 (09:25→22:11)
[2020-11-19] MEDS: POTASSIUM CHL 10 Meq TABLET PO SCH (09:25)
[2020-11-19] MEDS: ATORVASTATIN 20 MG TAB PO SCH (09:25)
[2020-11-19] MEDS: FUROSEMIDE 20 MG TAB PO SCH (09:27)
[2020-11-19] MEDS ORDERED: AMIO200T33 PO (12:13)
[2020-11-19] MEDS ORDERED: DOX100T PO (12:13)
[2020-11-19] MEDS ORDERED: NYS5LQ MT (12:13)
[2020-11-19 12:31] VITALS: BP 118/68
[2020-11-19 17:00] VITALS: BP 128/66
[2020-11-19 22:00] VITALS: BP 100/68
[2020-11-20] MEDS: MORPHINE SULF INJ 2 MG/ML SYRINGE 1ML IV PRN ×3 (02:32→21:03)
[2020-11-20 05:00] VITALS: BP 129/63
[2020-11-20] MEDS: ACCU-CHEK COMFORT CURVE STRIP VI SCH ×4 (05:43→23:33)
[2020-11-20] MEDS: NYSTATIN (MOUTH-THROAT) 500,000 UNITS/5 ML SUSP MT SCH ×4 (05:43→21:03)
[2020-11-20] MEDS: InsuLIN REG 1unit/0.01ml Soln (100units/ml) SC SCH ×4 (05:43→23:33)
[2020-11-20 06:40] LABS: Calcium 8.9 mg/dL (8.5-10.1); Potassium 5.1 mmol/L (3.5-5.1)
[2020-11-20 06:43] LABS: BUN/Creatinine Ratio 45.2
[2020-11-20 09:21] VITALS: BP 108/65
[2020-11-20 10:28] LABS: Hematocrit 30.4 % (36.0-46.0); Hemoglobin 9.9 g/dL (12.2-16.2); Mean Corpuscular Hemoglobin 32.1 pg (28.0-32.0); Mean Corpuscular Hgb Conc. 32.5 g/dL (32.0-36.0); Mean Corpuscular Volume 98.7 fL (80.0-100.0); Platelet Count (auto) 354 10^3/uL (140-450); Red Blood Cells 3.08 10^6/uL (4.0-5.20); Red Cell Distribution Width 16.4 % (11.8-14.3); White Blood Cell 11.3 10^3/uL (4.4-10.8)
[2020-11-20 10:34] LABS: Basophils % (manual) 0 (0.0-2.0); Blast Cells 0; Metamyelocytes % 0; Myelocytes % 0; Promyelocytes % 0; Reactive Lymphocytes 0
[2020-11-20] MEDS: APIXABAN 5 MG TAB PO SCH ×2 (10:38→21:04)
[2020-11-20] MEDS: AMIODARONE HCL 200 MG TAB PO SCH ×2 (10:38→21:03)
[2020-11-20] MEDS: ATORVASTATIN 20 MG TAB PO SCH (10:39)
[2020-11-20] MEDS: PANTOPRAZOLE 40 MG TAB PO SCH (10:39)
[2020-11-20] MEDS: DOXYCYCLINE 100 MG TAB/CAP PO SCH ×2 (10:39→21:04)
[2020-11-20] MEDS: POTASSIUM CHL 10 Meq TABLET PO SCH (10:39)
[2020-11-20] MEDS: FUROSEMIDE 20 MG TAB PO SCH (10:40)
[2020-11-20 11:59] LABS: Band Neutrophils % (manual) 1; Eosinophils % (manual) 1 (0-7); Lymphocytes % (manual) 4 (10.0-50.0); Monocytes % (manual) 11 (0-12)
[2020-11-20 13:00] VITALS: BP 106/48
[2020-11-20 17:00] VITALS: BP 98/60
[2020-11-20 22:00] VITALS: BP 102/58
[2020-11-21] MEDS: MORPHINE SULF INJ 2 MG/ML SYRINGE 1ML IV PRN (02:52)
[2020-11-21 05:00] VITALS: BP 105/67
[2020-11-21] MEDS: ACCU-CHEK COMFORT CURVE STRIP VI SCH ×3 (05:37→18:00)
[2020-11-21] MEDS: NYSTATIN (MOUTH-THROAT) 500,000 UNITS/5 ML SUSP MT SCH ×4 (05:37→21:40)
[2020-11-21] MEDS: InsuLIN REG 1unit/0.01ml Soln (100units/ml) SC SCH ×3 (05:37→18:09)
[2020-11-21 06:08] LABS: Basophils # (auto) 0 10 ^3/uL (0-0.2); Basophils % (auto) 0.1 % (0.0-2.0); Eosinophils # (auto) 0.1 10 ^3/uL (0-0.8); Eosinophils % (auto) 0.6 % (0.0-7.0); Hematocrit 26.3 % (36.0-46.0); Hemoglobin 8.7 g/dL (12.2-16.2); Lymphocytes # (auto) 1.3 10 ^3/uL (0.4-5.4); Mean Corpuscular Hemoglobin 32.4 pg (28.0-32.0); Mean Corpuscular Volume 98.3 fL (80.0-100.0); Monocytes # (auto) 1.1 10 ^3/uL (0-1.3); Monocytes % (auto) 12.4 % (0.0-12.0); Neutrophils # (auto) 6.5 10 ^3/uL (1.6-8.6); Neutrophils % (auto) 72.9 % (37.0-80.0); Nucleated Red Blood Cells % 0.8 %; Platelet Count (auto) 269 10^3/uL (140-450); Red Blood Cells 2.67 10^6/uL (4.0-5.20); Red Cell Distribution Width 15.9 % (11.8-14.3); White Blood Cell 8.9 10^3/uL (4.4-10.8)
[2020-11-21 06:32] LABS: Calcium 8.6 mg/dL (8.5-10.1)
[2020-11-21 06:36] LABS: BUN/Creatinine Ratio 43.1
[2020-11-21 08:37] VITALS: BP 127/70
[2020-11-21] MEDS: DOXYCYCLINE 100 MG TAB/CAP PO SCH ×2 (09:53→21:40)
[2020-11-21] MEDS: AMIODARONE HCL 200 MG TAB PO SCH ×2 (09:53→21:40)
[2020-11-21] MEDS: POTASSIUM CHL 10 Meq TABLET PO SCH (09:53)
[2020-11-21] MEDS: ATORVASTATIN 20 MG TAB PO SCH (09:53)
[2020-11-21] MEDS: APIXABAN 5 MG TAB PO SCH ×2 (09:53→21:40)
[2020-11-21] MEDS: PANTOPRAZOLE 40 MG TAB PO SCH (09:53)
[2020-11-21] MEDS: FUROSEMIDE 20 MG TAB PO SCH (09:53)
[2020-11-21 13:24] VITALS: BP 95/58
[2020-11-21 15:39] VITALS: BP 98/49
[2020-11-21] MEDS: SODIUM CHLORIDE 0.9% 1,000 ML IV SCH (21:40)
[2020-11-21 22:00] VITALS: BP 100/56
[2020-11-22] MEDS: ACCU-CHEK COMFORT CURVE STRIP VI SCH ×5 (00:08→23:52)
[2020-11-22] MEDS: ALPRAZolam 0.5 MG TAB PO PRN ×2 (00:38→23:52)
[2020-11-22] MEDS: MORPHINE SULF INJ 2 MG/ML SYRINGE 1ML IV PRN ×2 (02:28→20:16)
[2020-11-22 05:00] VITALS: BP 121/71
[2020-11-22] MEDS: SODIUM CHLORIDE 0.9% 1,000 ML IV SCH ×4 (05:00→20:00)
[2020-11-22] MEDS: NYSTATIN (MOUTH-THROAT) 500,000 UNITS/5 ML SUSP MT SCH ×4 (05:50→22:02)
[2020-11-22] MEDS: InsuLIN REG 1unit/0.01ml Soln (100units/ml) SC SCH ×5 (05:51→23:54)
[2020-11-22 08:36] VITALS: BP 109/67
[2020-11-22 08:40] VITALS: BP 109/67
[2020-11-22] MEDS: POTASSIUM CHL 10 Meq TABLET PO SCH (10:00)
[2020-11-22] MEDS: AMIODARONE HCL 200 MG TAB PO SCH ×2 (11:55→22:02)
[2020-11-22] MEDS: APIXABAN 5 MG TAB PO SCH ×2 (11:56→22:02)
[2020-11-22] MEDS: FUROSEMIDE 20 MG TAB PO SCH (11:56)
[2020-11-22] MEDS: PANTOPRAZOLE 40 MG TAB PO SCH (11:57)
[2020-11-22] MEDS: ATORVASTATIN 20 MG TAB PO SCH (11:57)
[2020-11-22 13:15] VITALS: BP 94/58
[2020-11-22 16:02] VITALS: BP 123/63
[2020-11-22 22:00] VITALS: BP 116/75
[2020-11-23] MEDS ORDERED: EPINEPHrine HCL 1 MG/10 ML SYRG IV ONE (06:29)
[2020-11-23] MEDS ORDERED: CALCIUM CHLOR(10%) 100MG/ML 10ML SYRINGE IV ONE (06:29)
[2020-11-23] MEDS ORDERED: AMIODARONE HCL (50 MG/ ML) 3 ML VIAL IV ONE (06:29)
[2020-11-23] MEDS ORDERED: SODIUM BICARBONATE 8.4% INJ 50ML SYRINGE IV ONE (06:29)
== END 2020-11-23 06:30 | DRG 720 ==
LOC: ER 15:04 → EDBD 15:04 → TELE 15:05 → ICU WEST 11-13 20:46 → TELE-WESTW 11-17 17:57
PROVIDERS: ADMIT Internal Medicine; ATTEND Internal Medicine
PROC: 5A1945Z Respiratory Ventilation, 24-96 Consecutive Hours (ICD-10-PCS; principal; 2020-11-11)
PROC: 0BH17EZ Insertion of Endotracheal Airway into Trachea, Via Natural or Artificial Opening (ICD-10-PCS; 2020-11-11)
PROC: 02HV33Z Insertion of Infusion Device into Superior Vena Cava, Percutaneous Approach (ICD-10-PCS; 2020-11-11)
PROC: XW033E5 Introduction of Remdesivir Anti-infective into Peripheral Vein, Percutaneous Approach, New Technology Group 5 (ICD-10-PCS; 2020-11-12)
PROC: 5A12012 Performance of Cardiac Output, Single, Manual (ICD-10-PCS; 2020-11-23)
DX: A41.89 Other specified sepsis (principal); U07.1 COVID-19; J12.82 Pneumonia due to coronavirus disease 2019; G93.41 Metabolic encephalopathy; I50.43 Acute on chronic combined systolic (congestive) and diastolic (congestive) heart failure; I48.91 Unspecified atrial fibrillation; N30.00 Acute cystitis without hematuria; D64.9 Anemia, unspecified; E43 Unspecified severe protein-calorie malnutrition; D68.59 Other primary thrombophilia; E78.5 Hyperlipidemia, unspecified; B37.0 Candidal stomatitis; E83.42 Hypomagnesemia; N17.9 Acute kidney failure, unspecified; Z85.3 Personal history of malignant neoplasm of breast; I46.9 Cardiac arrest, cause unspecified; E78.00 Pure hypercholesterolemia, unspecified; E11.9 Type 2 diabetes mellitus without complications; I11.0 Hypertensive heart disease with heart failure; I25.10 Atherosclerotic heart disease of native coronary artery without angina pectoris; I42.9 Cardiomyopathy, unspecified; J96.21 Acute and chronic respiratory failure with hypoxia; J96.22 Acute and chronic respiratory failure with hypercapnia; M19.90 Unspecified osteoarthritis, unspecified site; R65.20 Severe sepsis without septic shock; Z90.710 Acquired absence of both cervix and uterus; R79.89 Other specified abnormal findings of blood chemistry
CPT/HCPCS: 31500; 36415; 36556; 36600; 51702; 70450; 71045; 80048; 80053; 80307; 81001; 82728; 82805; 82962; 83605; 83615; 83735; 83880; 84100; 84484; 85007; 85025; 85027; 85379; 85610; 85730; 86141; 87040; 87070; 87077; 87081; 87205; 87426; 92610; 93005; 94002; 94003; 97110; 97163; 97530; 99291; C9113; G0378; J0696; J1100; J1815; J2250; J3480; J3490; J7060